=== PATIENT | female | born 1965 | race Caucasian/White ===

== ENCOUNTER 2020-07-11 07:59 | Outpatient (REF) | payer OTHER, SELFPAY ==
--- NOTE | 2020-07-11 08:04 | MM_ITS ---
EXAMINATION: MM SCREENING DIGITAL BREAST TOMOSYNTHESIS, BILATERAL CLINICAL INFORMATION: Screening. Asymptomatic. The lifetime risk of breast cancer based on the Tyrer-Cuzick Model is 9%. COMPARISON: Mammography: 11/20/2018, 09/26/2017, 09/20/2016, 05/05/2015 TECHNIQUE: Digital breast tomosynthesis is performed in both the craniocaudal and mediolateral oblique views along with computer-aided detection (CAD). Synthesized 2D images are generated from the tomosynthesis. FINDINGS: There are scattered areas of fibroglandular density (ACR BI-RADS breast composition Category b). There is a smooth 5 mm nodule left 12:30 o'clock position 3 cm from nipple more conspicuous on current study, possibly a cyst. The remainder of the bilateral breasts show no significant changes. There is no architectural abnormality or abnormal calcifications. The axilla and skin contours are unremarkable. MM/MM tomosynthesis screening BI IMPRESSION: 1. Left: Circumscribed 5 mm nodule 12:30 o'clock position more conspicuous, possibly a cyst. 2. Right: No mammographic evidence of malignancy. ASSESSMENT: BI-RADS 0: Incomplete - Need Additional Imaging Evaluation RECOMMENDATION: 1. Targeted ultrasound left breast. 2. Radiology department staff will contact the patient for additional imaging. This patient's information was entered into a reminder system with a target due date for their next mammogram.
== END 2020-07-11 08:00 | disposition home or self-care (01) ==
LOC: HO.MAMMO 07:59
PROVIDERS: Visit Provider Internal Medicine Medical Oncology
DX: Z12.31 Encounter for screening mammogram for malignant neoplasm of breast (principal)
CPT/HCPCS: 77063; 77067

== ENCOUNTER 2020-07-16 13:57 | Outpatient (REF) | payer OTHER, SELFPAY ==
--- NOTE | 2020-07-16 14:02 | US_ITS ---
EXAMINATION: US DIAGNOSTIC ULTRASOUND BREAST, LEFT CLINICAL INFORMATION: Recall from screening for 5 mm circumscribed nodule 12:30 o'clock anterior left breast. COMPARISON: Mammography 07/11/2020, 11/20/2018. TECHNIQUE: Ultrasound left breast is targeted to the anterior upper breast. Grayscale imaging and color Doppler are performed without and with harmonics. FINDINGS: There is a benign-appearing circumscribed anechoic nodule 12:00 position 2 cm from nipple measuring 4 x 5 mm. There is no increased or decreased through transmission of sound. There are low level internal echoes on CT sonography which clear with harmonics. There is no associated color flow. There is no suspicious finding. No solid mass or architectural abnormality. Results are discussed with the patient at time of visit. Finding is benign-appearing and likely a cyst. As there is no increased through-transmission of sound, follow-up ultrasound in 6 months will be requested. US/US breast LT limited IMPRESSION: Circumscribed 5 mm nodule anterior 12:00 left breast, likely small complicated cyst. ASSESSMENT: BI-RADS 3: Probably Benign RECOMMENDATION: Targeted ultrasound left breast in 6 months. This patient's information was entered into a reminder system with a target due date for their next mammogram.
== END 2020-07-16 13:58 | disposition home or self-care (01) ==
LOC: HO.MAMMO 13:57
PROVIDERS: Visit Provider Internal Medicine Medical Oncology
DX: N63.20 Unspecified lump in the left breast, unspecified quadrant (principal)
CPT/HCPCS: 76642

== ENCOUNTER 2020-12-15 10:32 | Outpatient (REF) | payer OTHER, SELFPAY ==
--- NOTE | ~2020-12-15 | XR_ITS ---
EXAMINATION: XR CERVICAL SPINE CLINICAL INFORMATION: Osteoarthritis. COMPARISON: None TECHNIQUE: 4 views of the cervical spine were obtained. FINDINGS: Slightly prominent lordotic curvature of the cervical spine. Posterior alignment is maintained without significant subluxation. No prevertebral soft tissue swelling. No evidence of acute fracture. Moderate C5-C6 disc degeneration. Facet degeneration at C5-C6, C6-C7. No prevertebral soft tissue swelling. Lung apices are clear. XR/XR cervical spine 3V IMPRESSION: Cervical spondylosis. Moderate C5-C6 disc degeneration. No evidence of acute osseous abnormality.
== END 2020-12-15 10:33 | disposition home or self-care (01) ==
LOC: HO.US 10:32
PROVIDERS: Visit Provider Internal Medicine Medical Oncology
DX: M19.90 Unspecified osteoarthritis, unspecified site (principal)
CPT/HCPCS: 72040

== ENCOUNTER 2021-01-14 10:56 | Outpatient (REF) | payer OTHER, SELFPAY ==
--- NOTE | ~2021-01-14 | US_ITS ---
EXAMINATION: US DIAGNOSTIC ULTRASOUND BREAST, LEFT CLINICAL INFORMATION: Left breast solid lesion. COMPARISON: Mammography of 07/11/2020 and ultrasound of 07/16/2020. TECHNIQUE: Ultrasound of the breast was performed with real-time fabian scale imaging and color Doppler. FINDINGS: There is again noted to be a well-circumscribed, hypoechoic lesion with increased through sound transmission and no internal vascularity at the 12-o'clock position, 2 cm from the nipple, measuring 6 x 5 x 4 mm in size. No new more suspicious features are identified. Recommend 6-month follow up ultrasound at the time of yearly mammography. Results are discussed with the patient at time of visit. US/US breast LT limited IMPRESSION: Stable appearance of left breast density, likely representing a small fibroadenoma. ASSESSMENT: BI-RADS 3: Probably Benign. RECOMMENDATION: Diagnostic mammography in 6 months. This patient's information was entered into a reminder system with a target due date for their next mammogram.
== END 2021-01-14 10:57 | disposition home or self-care (01) ==
LOC: HO.MAMMO 10:56
PROVIDERS: Visit Provider Internal Medicine Medical Oncology
DX: R92.2 Inconclusive mammogram (principal)
CPT/HCPCS: 76642

== ENCOUNTER 2021-01-23 16:53 | Outpatient (REF) | payer OTHER, SELFPAY ==
--- NOTE | ~2021-01-23 | XR_ITS ---
EXAMINATION: XR PELVIS CLINICAL INFORMATION: Left pubic ramus pain. Osteoarthritis. COMPARISON: None TECHNIQUE: AP view of the pelvis. FINDINGS: No acute fracture or dislocation. No significant joint space narrowing. Prominent bilateral acetabular marginal osteophytes, left greater than right. No lytic or blastic osseous lesion. No abnormal soft tissue calcification. XR/XR pelvis 1-2V IMPRESSION: Mild bilateral hip osteoarthritis, left greater than right.
== END 2021-01-23 16:54 | disposition home or self-care (01) ==
LOC: HO.XRAY 16:53
PROVIDERS: PCP Internal Medicine Medical Oncology; Visit Provider Internal Medicine Medical Oncology
DX: R10.2 Pelvic and perineal pain (principal); M19.90 Unspecified osteoarthritis, unspecified site
CPT/HCPCS: 72170

== ENCOUNTER 2021-07-25 07:28 | Outpatient (REF) | payer OTHER, SELFPAY | END 2021-07-25 07:29 | disposition home or self-care (01) | LOC: HO.MAMMO 07:28 | PROVIDERS: PCP Internal Medicine Medical Oncology; Visit Provider Internal Medicine Medical Oncology | DX: Z13.89 Encounter for screening for other disorder (principal) ==

== ENCOUNTER 2021-08-15 13:55 | Outpatient (REF) | payer OTHER, SELFPAY ==
--- NOTE | ~2021-08-15 | MM_ITS ---
EXAMINATION: MM DIAGNOSTIC DIGITAL MAMMOGRAPHY, BILATERAL US BREAST TARGETED, LEFT CLINICAL INFORMATION: Left breast density with 6-month followup. Yearly right breast study. The lifetime risk of breast cancer based on the Tyrer-Cuzick Model is 9.7%. COMPARISON: Mammography: 07/11/2020 and studies dating back to 05/05/2015 TECHNIQUE: Digital mammography is performed in craniocaudal and mediolateral oblique views along with computer-aided detection (CAD). FINDINGS: There are scattered areas of fibroglandular density (ACR BI-RADS breast composition Category b). There is a stable parenchymal pattern of the right breast with no new abnormal dominant mass or suspicious grouping of microcalcifications. Left breast study performed. The density about the mid lateral aspect is less evident than on prior studies. No new abnormal dominant mass or suspicious grouping of microcalcifications appreciated. Targeted left breast ultrasound study demonstrates the hypoechoic lesion to be smaller than prior studies measuring 3 x 3 x 4 mm in size compared to 5 x 4 x 6 mm in size on previous study of 01/14/2021. There is again no significant distal sound shadowing or enhancement, and this has the appearance of a possible solid lesion versus a complex cyst. No internal vascularity is present. Would still recommend 6-month followup diagnostic targeted left breast ultrasound. Results are discussed with the patient at time of visit. MM/MM diagnostic mammo BI IMPRESSION: There are no significant changes from prior study. ASSESSMENT: BI-RADS 3: Probably Benign. RECOMMENDATION: Six-month followup left breast ultrasound. This patient's information was entered into a reminder system with a target due date for their next mammogram.
--- NOTE | ~2021-08-15 | US_ITS ---
EXAMINATION: US DIAGNOSTIC ULTRASOUND BREAST, LEFT CLINICAL INFORMATION: Left breast density. COMPARISON: January 14, 2021 and studies dating back to May 05, 2015. TECHNIQUE: Ultrasound of the breast is performed with real-time fabian scale imaging and color Doppler. FINDINGS: Targeted left breast ultrasound study demonstrates the hypoechoic lesion to be smaller than prior studies measuring 3 x 3 x 4 mm in size compared to 5 x 4 x 6 mm in size on previous study of January 14, 2021. There is again no significant distal sound shadowing or enhancement and this has the appearance of a possible solid lesion versus a complex cyst. No internal vascularity is present. Would still recommend 6 month follow-up diagnostic targeted left breast ultrasound. Results are discussed with the patient at time of visit. US/US breast LT limited IMPRESSION: There are no significant changes from prior study. ASSESSMENT: BI-RADS 3: Probably Benign RECOMMENDATION: Six-month follow-up left breast ultrasound.
== END 2021-08-15 13:56 | disposition home or self-care (01) ==
LOC: HO.MAMMO 13:55
PROVIDERS: Visit Provider Internal Medicine Medical Oncology
DX: R92.2 Inconclusive mammogram (principal)
CPT/HCPCS: 76642; 77066

== ENCOUNTER 2022-01-25 07:57 | Outpatient (REF) | payer OTHER, SELFPAY ==
[2022-01-25 08:17] LABS: MANUAL DIFF FLAG NO
[2022-01-25 08:26] LABS: Basophils Absolute Auto 0.1 X10*3/uL (0.0-0.2); Basophils Percent Auto 1.2 % (0-2); Eosinophils Absolute Auto 0.2 X10*3/uL (0.0-0.4); Eosinophils Percent Auto 3.6 % (0-4); Hematocrit 43.9 % (37.0-47.0); Hemoglobin 14.5 g/dl (12.0-16.0); Imm Gran Abs Auto 0.01 X10*3/uL (0.00-0.03); Imm Gran Pct Auto 0.2 % (0.0-0.4); Lymphocytes Absolute Auto 1.5 X10*3/uL (1.2-4.9); Lymphocytes Percent Auto 25.5 % (20-40); Mean Corpuscular Hemoglobin 31.1 pg (27.0-33.0); Mean Corpuscular Volume 94.2 fL (80.0-98.0); Mean Platelet Volume 9.7 fL (9.4-12.3); Monocytes Absolute Auto 0.5 X10*3/uL (0.1-1.2); Neutrophils Absolute Auto 3.6 x10*3/uL (2.0-8.3); Neutrophils Percent Auto 61.5 % (45-73); Platelet Count 252 X10*3/uL (160-400); Red Blood Count 4.66 X10*6/uL (4.20-5.50); Red Cell Distribution Width 11.9 % (11.0-16.0); White Blood Count 5.8 X10*3/uL (4.8-10.8)
[2022-01-25 08:53] LABS: Alanine Aminotransferase 23 U/L (0-31); Albumin Level 4.1 g/dL (3.5-5.0); Alkaline Phosphatase 100 U/L (39-117); Anion Gap 10 (12-20); Aspartate Amino Transferase 27 U/L (5-31); Bilirubin Total 0.8 mg/dL (0.0-1.0); Blood Urea Nitrogen 18 mg/dL (9-16); Calcium 9.7 mg/dL (8.4-10.2); Carbon Dioxide 28 mmol/L (22-29); Chloride 107 mmol/L (96-108); Cholesterol 193 mg/dL; Estimated Glomerular Filt Rate 49; Glucose Fasting 93 mg/dL (60-99); HDL Cholesterol 62 mg/dL; LDL Cholesterol Calculated 123 mg/dl; Potassium 4.5 mmol/L (3.3-5.1); Sodium 140 mmol/L (135-145); Total Protein 6.6 g/dL (6.5-8.0); Triglycerides 44 mg/dL
[2022-01-25 09:14] LABS: Erythrocyte Sedimentation Rate 6 MM/HR (0-20)
== END 2022-01-25 07:58 | disposition home or self-care (01) ==
LOC: HO.LAB 07:57
PROVIDERS: PCP Internal Medicine Medical Oncology; Visit Provider Internal Medicine Medical Oncology
DX: Z00.00 Encounter for general adult medical examination without abnormal findings (principal); E66.3 Overweight
CPT/HCPCS: 36415; 80053; 80061; 85025; 85652

== ENCOUNTER 2022-07-01 17:08 | Outpatient (REF) | payer OTHER, SELFPAY ==
--- NOTE | ~2022-07-01 | XR_ITS ---
EXAMINATION: XR ANKLE, RIGHT CLINICAL INFORMATION: Acute right ankle pain. COMPARISON: None TECHNIQUE: AP, lateral, and mortise views of the right ankle. FINDINGS: The ankle joint and mortise are intact but there is no acute fracture or dislocation. The joint spaces are unremarkable. Very small plantar and moderate retrocalcaneal spur. The soft tissues are unremarkable. XR/XR ankle RT min 3V IMPRESSION: Degenerative calcaneal spurs as detailed above without acute abnormality.
== END 2022-07-01 17:09 | disposition home or self-care (01) ==
LOC: HO.XRAY 17:08
PROVIDERS: PCP Internal Medicine Medical Oncology; Visit Provider Internal Medicine Medical Oncology
DX: M25.571 Pain in right ankle and joints of right foot (principal)
CPT/HCPCS: 73610

== ENCOUNTER 2022-08-19 12:54 | Outpatient (REF) | payer OTHER, SELFPAY ==
--- NOTE | ~2022-08-19 | MM_ITS ---
EXAMINATION: MM DIAGNOSTIC DIGITAL BREAST TOMOSYNTHESIS, BILATERAL US BREAST TARGETED, LEFT CLINICAL INFORMATION: Six-month follow-up left breast lesion which on ultrasound appears to represent either complex cyst or a solid structure. The lifetime risk of breast cancer based on the Tyrer-Cuzick Model is 9.9%. COMPARISON: Mammography: 08/15/2021 and studies dating back to 05/05/2015. TECHNIQUE: Digital breast tomosynthesis is performed in both the craniocaudal and mediolateral oblique views along with computer-aided detection (CAD). Synthesized 2D images are generated from the tomosynthesis. FINDINGS: The breasts are heterogeneously dense, which may obscure small masses (ACR BI-RADS breast composition Category c). There are no new significant masses, abnormal calcifications, or other abnormalities. The previously noted left breast circumscribed density is not definitely identified on today's study. Targeted left breast ultrasound demonstrates a stable appearance of the two hypoechoic well-circumscribed hypoechoic lesions 12 o'clock position 2 cm from nipple one of which measures 2 mm in diameter and the other 4 x 3 x 3 mm in size. Results are discussed with the patient at time of visit. MM/MM tomosynthesis diagnostic BI IMPRESSION: Stability of left breast lesion 12 o'clock position 2 cm from nipple out to 2 years. Return to yearly screening mammogram schedule. ASSESSMENT: BI-RADS 2: Benign. RECOMMENDATION: Routine annual mammography screening. This patient's information was entered into a reminder system with a target due date for their next mammogram.
== END 2022-08-19 12:55 | disposition home or self-care (01) ==
LOC: HO.MAMMO 12:54
PROVIDERS: Absent Provider Obstetrics & Gynecology; Visit Provider Internal Medicine Medical Oncology
DX: N63.25 Unspecified lump in the left breast, overlapping quadrants (principal)
CPT/HCPCS: 76642; 77062; 77066

== ENCOUNTER 2023-01-16 20:59 | Emergency (ER) | payer OTHER, SELFPAY ==
--- NOTE | ~2023-01-16 | XR_ITS ---
EXAMINATION: XR WRIST, RIGHT CLINICAL INFORMATION: Right wrist injury COMPARISON: Right hand 06/28/2008 TECHNIQUE: PA, lateral, oblique, and scaphoid views of the right wrist. FINDINGS: The bones and soft tissues are unremarkable. No fracture is seen. Alignment is anatomic with normal joint spaces. No erosions or abnormal soft tissue calcifications. XR/XR wrist RT min 3V IMPRESSION: Normal right wrist.
[2023-01-16 21:07] VITALS: BP 121/73; PULSE 76; RESP 18; TEMP 36.6; O2SAT 96; BMI 27.1
[2023-01-17 01:39] VITALS: BP 134/87; PULSE 58; RESP 18; TEMP 36.6; O2SAT 98
--- NOTE | 2023-01-17 02:24 | ED_ITS ---
HPI - Extremity Problem General Chief complaint: Extremity Injury, Upper Stated complaint: R wrist inj Time Seen by Provider: 01/17/23 01:02 Source: patient Mode of arrival: ambulatory History of Present Illness HPI Narrative: 57-year-old female fell and believes that she struck her right hand on the edge of a cement wall but otherwise has no acute complaints. She denies head strike or loss of conscious. Related Data Home Medications Medication Instructions Recorded Confirmed albuterol sulfate 90 mcg/actuation 2 inh inhalation Q4-6H PRN 07/08/22 07/08/22 breath activated powder inhaler,sensor (Proair Digihaler) docosahexaenoic acid (dha)-epa 120 1 cap PO DAILY 07/08/22 07/08/22 mg-180 mg capsule (Fish Oil) estradiol 10 mg implant pellet mg subcut 07/08/22 07/08/22 ibuprofen 200 mg tablet (Advil) 200 mg PO Q6H PRN 07/08/22 07/08/22 multivitamin 1 tab PO DAILY 07/08/22 07/08/22 Previous Rx's Medication Instructions Recorded bisacodyl 5 mg tablet,delayed 10 mg PO ONCE colonoscopy prep 1 07/08/22 release (Dulcolax (bisacodyl)) day #2 tabs bisacodyl 5 mg tablet,delayed 10 mg PO ONCE colonoscopy prep 1 07/08/22 release (Dulcolax (bisacodyl)) day #2 tabs polyethylene glycol 3350 17 238 g PO ONCE 1 day #238 grams 07/08/22 gram/dose oral powder (Miralax) polyethylene glycol 3350 17 238 g PO ONCE 1 day #238 grams 07/08/22 gram/dose oral powder (Miralax) Allergies Allergy/AdvReac Type Severity Reaction Status Date / Time citalopram [CITALOPRAM] Allergy Severe SUICIDAL Verified 01/16/23 21:07 trazodone [TRAZODONE] Allergy Severe SUICIDAL Verified 01/16/23 21:07 zolpidem [From Ambien] Allergy Severe Confusion Verified 01/16/23 21:07 erythromycin base Allergy Intermediate CONFUSION Verified 01/16/23 21:07 [Erythromycin Base] latex [LATEX] Allergy Intermediate RASH Verified 01/16/23 21:07 Sulfa (Sulfonamide Allergy Intermediate ? RASH Verified 01/16/23 21:07 Antibiotics) LIVID Allergy Unknown SUICIDAL Verified 01/16/23 21:07 sulfur Allergy Unknown Unknown Verified 01/16/23 21:07 duloxetine [From Cymbalta] AdvReac Unknown Suicidal Verified 01/16/23 21:07 fluoxetine [From Prozac] AdvReac Unknown Suicidal Verified 01/16/23 21:07 paroxetine [From Paxil] AdvReac Unknown Suicidal Verified 01/16/23 21:07 venlafaxine [From Effexor] AdvReac Unknown Suicidal Verified 01/16/23 21:07 COLOPHON Allergy Unknown SUICIDAL Uncoded 01/16/23 21:07 Review of Systems Review of Systems: Pertinent positives and negatives as stated in HPI [facility] Past Medical History Source: nursing notes reviewed Family History Family History Father Skin cancer Stroke Diabetes Hyperlipemia Mother Stroke Rheumatic arteritis Dementia Mouth cancer HTN (hypertension) Brother Hyperlipemia Brother HTN (hypertension) Social History Social History Household Members: Family Alcohol intake: never Patient Tobacco Use Status: Never used Tobacco Smoked in Last 30 Days: No Use of substances other than those prescribed or required for medical reasons: No Advance Directives: No Advance Directives Information Provided: Yes Patient : No Current occupational status: employed Current occupation: [employer]- Physical Exam Vital Signs: Vital Signs: Last Vital Signs Temp 98 F 01/17/23 01:39 Pulse 58 01/17/23 01:39 Resp 18 01/17/23 01:39 BP 134/87 01/17/23 01:39 Pulse Ox 98 01/17/23 01:39 O2 Del Method Room Air 01/17/23 01:39 BMI result Body Mass Index 27.1 VITAL SIGNS: Reviewed. GENERAL: Well developed, well nourished, in no acute distress. HEAD: Normocephalic/atraumatic EYES: PERRLA, EOMI EARS: Ext canals without abnormality NOSE: Nares patent bilateral OROPHARYNX: no oral lesions noted, posterior pharynx clear NECK: Supple, no adenopathy LUNGS: Normal breath sounds. No adventitious sounds or accessory muscle use. SpO2<98> CARDIOVASCULAR: Regular rate and rhythm without noted murmurs ABDOMEN: Soft, non-tender, non-distended with bowel sounds. MUSCULOSKELETAL: No tenderness, deformities, or effusions noted on gross inspection. EXTREMITIES: No cyanosis, clubbing or edema; RIGHT UPPER EXTREMITY: There is no gross deformity, palpation along both the radius and ulna do not elicit any pain, patient has full range of motion at the wrist to include supination/pronation, capillary refill less than 3 seconds an pulses are palpable. SKIN: Inspection of the skin reveals no rashes NEUROLOGIC: Alert and oriented x 4. Strength and sensation to light touch were grossly intact x 4. Medical Decision Making Medical Decision Making MDM Narrative: 57-year-old female who fell and has some right 5th metatarsal pain, x-rays are negative for acute fracture or dislocation, nothing noted on clinical exam. Patient given combination analgesics and discharged home in stable condition with instructions to follow-up with her primary care provider should the pain persist. Differential Diagnosis Please see the discussion above Radiology Impression Radiologist Impression: My interpretation is in agreement with radiology's impression Discharge Plan Discharge Clinical Impression: Pain in right wrist Patient Disposition: Home, Self-Care Instructions: Wrist Injury (ED) Additional Instructions: 1. Resume all home medications. 2. Recommend [id number] Tylenol/ibuprofen as needed for pain control. 3. Follow-up with primary care provider on Thursday. Return to the ER for any worsening symptoms. Prescriptions: No Action estradiol 10 mg pellet subcut ibuprofen [Advil] 200 mg tablet 200 mg PO Q6H PRN Proair Digihaler 90 mcg/actuation aero powdr breath act w/sensor 2 inh inhalation Q4-6H PRN Fish Oil 120-180 mg capsule 1 cap PO DAILY multivitamin Tablet 1 tab PO DAILY bisacodyl [Dulcolax (bisacodyl)] 5 mg tablet,delayed release (DR/EC) 10 mg PO ONCE 1 Days Qty: 2 0RF Rx Instructions: Take 2 tablets by mouth at 12:00pm the day before your procedure. polyethylene glycol 3350 [Miralax] 17 gram/dose powder 238 g PO ONCE 1 Days Qty: 238 0RF Rx Instructions: Take as directed by mouth the day before your procedure. polyethylene glycol 3350 [Miralax] 17 gram/dose powder 238 g PO ONCE 1 Days Qty: 238 0RF Rx Instructions: Take as directed by mouth the day before your procedure. bisacodyl [Dulcolax (bisacodyl)] 5 mg tablet,delayed release (DR/EC) 10 mg PO ONCE 1 Days Qty: 2 0RF Rx Instructions: Take 2 tablets by mouth at 12:00pm the day before your procedure. Referrals: Vamshi Subramanian MD [Primary Care Provider] -
[2023-01-17] MEDS: Ibuprofen 400 MG TABLET PO (02:46)
[2023-01-17] MEDS: Acetaminophen 325 MG TABLET 975 MG PO (02:46)
== END 2023-01-17 02:50 | disposition home or self-care (01) ==
PROVIDERS: Emergency Provider Student in an Organized Health Care Education/Training Program; PCP Internal Medicine Medical Oncology
DX: M25.531 Pain in right wrist (principal)
CPT/HCPCS: 73110; 99283; 99284

== ENCOUNTER 2023-02-13 10:20 | Outpatient (REF) | payer OTHER, SELFPAY ==
[2023-02-13 10:39] LABS: MANUAL DIFF FLAG NO
[2023-02-13 11:18] LABS: Basophils Absolute Auto 0.1 X10*3/uL (0.0-0.2); Eosinophils Absolute Auto 0.2 X10*3/uL (0.0-0.4); Eosinophils Percent Auto 2.4 % (0-4); Hematocrit 43.9 % (37.0-47.0); Hemoglobin 14.8 g/dl (12.0-16.0); Imm Gran Abs Auto 0.02 X10*3/uL (0.00-0.03); Imm Gran Pct Auto 0.3 % (0.0-0.4); Lymphocytes Percent Auto 15.9 % (20-40); Mean Corpuscular HGB Conc 33.7 g/dl (31.0-35.0); Mean Corpuscular Volume 91.8 fL (80.0-98.0); Mean Platelet Volume 10.1 fL (9.4-12.3); Monocytes Absolute Auto 0.3 X10*3/uL (0.1-1.2); Monocytes Percent Auto 5.2 % (2-11); Neutrophils Absolute Auto 4.7 x10*3/uL (2.0-8.3); Neutrophils Percent Auto 75.2 % (45-73); Platelet Count 262 X10*3/uL (160-400); Red Blood Count 4.78 X10*6/uL (4.20-5.50); Red Cell Distribution Width 11.5 % (11.0-16.0); White Blood Count 6.3 X10*3/uL (4.8-10.8)
[2023-02-13 12:42] LABS: Alanine Aminotransferase 24 U/L (0-31); Albumin Level 4.1 g/dL (3.5-5.0); Alkaline Phosphatase 82 U/L (39-117); Anion Gap 10 (12-20); Aspartate Amino Transferase 26 U/L (5-31); Bilirubin Total 1.1 mg/dL (0.0-1.0); Blood Urea Nitrogen 16 mg/dL (9-16); Calcium 10.1 mg/dL (8.4-10.2); Carbon Dioxide 28 mmol/L (22-29); Chloride 106 mmol/L (96-108); Cholesterol 199 mg/dL; Estimated Glomerular Filt Rate > 60; Glucose Fasting 91 mg/dL (60-99); HDL Cholesterol 69 mg/dL; LDL Cholesterol Calculated 118 mg/dl; Sodium 140 mmol/L (135-145); Triglycerides 60 mg/dL
== END 2023-02-13 10:21 | disposition home or self-care (01) ==
LOC: HO.LAB 10:20
PROVIDERS: PCP Internal Medicine Medical Oncology; Visit Provider Internal Medicine Medical Oncology
DX: Z00.00 Encounter for general adult medical examination without abnormal findings (principal); E66.3 Overweight
CPT/HCPCS: 36415; 80053; 80061; 85025

== ENCOUNTER 2023-06-18 07:53 | Day surgery (SDC) | payer OTHER, SELFPAY ==
[2023-06-15 16:46] VITALS: BMI 27.5
--- NOTE | 2023-06-17 10:23 | HO.ANESPROP2 ---
HPI - Anesthesia Eval Consult details Narrative: 58yo F for Colonoscopy *Multiple med allergies* PMFSH Active Problems Active Problems: All Active Problems (Updated 01/18/23 @ 00:00 by Background Arya) Family history of colonic polyps (Acute) Encounter for screening colonoscopy (Acute) Family History Family History Father Skin cancer Stroke Diabetes Hyperlipemia Mother Stroke Rheumatic arteritis Dementia Mouth cancer HTN (hypertension) Brother Hyperlipemia Brother HTN (hypertension) Social History Social History Household Members: Family Alcohol intake: never Patient Tobacco Use Status: Never used Tobacco Current occupational status: employed Current occupation: [employer] Allergies Allergy/AdvReac Type Severity Reaction Status Date / Time citalopram [CITALOPRAM] Allergy Severe SUICIDAL Verified 01/16/23 21:07 trazodone [TRAZODONE] Allergy Severe SUICIDAL Verified 01/16/23 21:07 zolpidem [From Ambien] Allergy Severe Confusion Verified 01/16/23 21:07 erythromycin base Allergy Intermediate CONFUSION Verified 01/16/23 21:07 [Erythromycin Base] latex [LATEX] Allergy Intermediate RASH Verified 01/16/23 21:07 Sulfa (Sulfonamide Allergy Intermediate ? RASH Verified 01/16/23 21:07 Antibiotics) LIVID Allergy Unknown SUICIDAL Verified 01/16/23 21:07 sulfur Allergy Unknown Unknown Verified 01/16/23 21:07 duloxetine [From Cymbalta] AdvReac Unknown Suicidal Verified 01/16/23 21:07 fluoxetine [From Prozac] AdvReac Unknown Suicidal Verified 01/16/23 21:07 paroxetine [From Paxil] AdvReac Unknown Suicidal Verified 01/16/23 21:07 venlafaxine [From Effexor] AdvReac Unknown Suicidal Verified 01/16/23 21:07 COLOPHON Allergy Unknown SUICIDAL Uncoded 01/16/23 21:07 Home Medications Medication Instructions Recorded Confirmed Last Taken Type albuterol sulfate 90 mcg/actuation 2 inh inhalation Q4-6H PRN 07/08/22 07/08/22 Unknown History breath activated powder inhaler,sensor (Proair Digihaler) docosahexaenoic acid (dha)-epa 120 1 cap PO DAILY 07/08/22 07/08/22 Unknown History mg-180 mg capsule (Fish Oil) estradiol 10 mg implant pellet mg subcut 07/08/22 07/08/22 Unknown History ibuprofen 200 mg tablet (Advil) 200 mg PO Q6H PRN 07/08/22 07/08/22 Unknown History multivitamin 1 tab PO DAILY 07/08/22 07/08/22 Unknown History Exam Exam Date and Time: June 17, 2023 1023 Height,Weight and Vital Signs: Height 5 ft 4 in Weight 72.575 kg Pertinent Lab Results Pertinent Lab Results: Laboratory Tests 02/13/23 10:38 WBC 6.3 Hgb 14.8 Hct 43.9 Plt Count 262 Sodium 140 Potassium 4.0 Chloride 106 Carbon Dioxide 28 BUN 16 Creatinine 0.85 Assessment and Plan Assessment Anesthesia Assessment: Chart Reviewed
--- NOTE | 2023-06-18 07:58 | MHC.SHP ---
Pre-Procedural Eval Section A Date of Service: 06/18/23 Section B Chief Complaint: Encounter for screening Relevant Social History: None Present Medications: see Short Stay Collaborative assessment Medical History: No relevant PMH History of Previous Operations: No relevant previous surgery Allergies: Allergies Allergy/AdvReac Type Severity Reaction Status Date / Time citalopram [CITALOPRAM] Allergy Severe SUICIDAL Verified 01/16/23 21:07 trazodone [TRAZODONE] Allergy Severe SUICIDAL Verified 01/16/23 21:07 zolpidem [From Ambien] Allergy Severe Confusion Verified 01/16/23 21:07 erythromycin base Allergy Intermediate CONFUSION Verified 01/16/23 21:07 [Erythromycin Base] latex [LATEX] Allergy Intermediate RASH Verified 01/16/23 21:07 Sulfa (Sulfonamide Allergy Intermediate ? RASH Verified 01/16/23 21:07 Antibiotics) LIVID Allergy Unknown SUICIDAL Verified 01/16/23 21:07 sulfur Allergy Unknown Unknown Verified 01/16/23 21:07 duloxetine [From Cymbalta] AdvReac Unknown Suicidal Verified 01/16/23 21:07 fluoxetine [From Prozac] AdvReac Unknown Suicidal Verified 01/16/23 21:07 paroxetine [From Paxil] AdvReac Unknown Suicidal Verified 01/16/23 21:07 venlafaxine [From Effexor] AdvReac Unknown Suicidal Verified 01/16/23 21:07 COLOPHON Allergy Unknown SUICIDAL Uncoded 01/16/23 21:07 Review of Systems Review of Systems Comment: 10 point ROS negative Exam Exam Comment: Gen appear: No acute distress HEENT: no icterus Chest: No overt resp distress Abd: soft, nontender, nondistended Psych: Stable affect, answering questions appropriately Neuro: A/Ox3 noted to move all extremities spontaneously Ext: no peripheral edema Plan Diagnosis/Plan: Unchanged I have reviewed the history and physical and performed a pertinent physical examination on my patient. No changes have occurred unless specified. Time Spent With Patient Time: Total time managing care of this patient today ____ minutes.
--- NOTE | 2023-06-18 08:22 | P.CONAN_ITS ---
[facility] Active Problems Active Problems: All Active Problems (Updated 01/18/23 @ 00:00 by Earle Koenig) Family history of colonic polyps (Acute) Encounter for screening colonoscopy (Acute) Past Medical History Medical History Arrhythmia Asthma Family History Family History Father Skin cancer Stroke Diabetes Hyperlipemia Mother Stroke Rheumatic arteritis Dementia Mouth cancer HTN (hypertension) Brother Hyperlipemia Brother HTN (hypertension) Family history of problems with anesthesia: No Surgical History Surgical History History of mandibular surgery History of toe surgery History of colonoscopy History of Problems with Anesthesia: No Social History Social History Household Members: Family Alcohol intake: never Patient Tobacco Use Status: Never used Tobacco Current occupational status: employed Current occupation: [employer] Allergies Allergy/AdvReac Type Severity Reaction Status Date / Time citalopram [CITALOPRAM] Allergy Severe SUICIDAL Verified 01/16/23 21:07 trazodone [TRAZODONE] Allergy Severe SUICIDAL Verified 01/16/23 21:07 zolpidem [From Ambien] Allergy Severe Confusion Verified 01/16/23 21:07 erythromycin base Allergy Intermediate CONFUSION Verified 01/16/23 21:07 [Erythromycin Base] latex [LATEX] Allergy Intermediate RASH Verified 01/16/23 21:07 Sulfa (Sulfonamide Allergy Intermediate ? RASH Verified 01/16/23 21:07 Antibiotics) sulfur Allergy Unknown Unknown Verified 01/16/23 21:07 duloxetine [From Cymbalta] AdvReac Unknown Suicidal Verified 01/16/23 21:07 fluoxetine [From Prozac] AdvReac Unknown Suicidal Verified 01/16/23 21:07 paroxetine [From Paxil] AdvReac Unknown Suicidal Verified 01/16/23 21:07 venlafaxine [From Effexor] AdvReac Unknown Suicidal Verified 01/16/23 21:07 COLOPHON Allergy Unknown SUICIDAL Uncoded 01/16/23 21:07 Active Medications: Current Medications Lactated Ringer's (Lr) 1,000 mls @ 100 mls/hr IVCONT .Q10H ABILIO Ondansetron HCl (Ondansetron Hcl 4 Mg/2 Ml Vial) 4 mg IVPUSH ONCE PRN PRN Reason: Nausea and Vomiting Home Medications Medication Instructions Recorded Confirmed Last Taken Type albuterol sulfate 90 mcg/actuation 2 inh inhalation Q4-6H PRN 07/08/22 07/08/22 Unknown History breath activated powder inhaler,sensor (Proair Digihaler) docosahexaenoic acid (dha)-epa 120 1 cap PO DAILY 07/08/22 07/08/22 Unknown History mg-180 mg capsule (Fish Oil) estradiol 10 mg implant pellet mg subcut 07/08/22 07/08/22 Unknown History ibuprofen 200 mg tablet (Advil) 200 mg PO Q6H PRN 07/08/22 07/08/22 Unknown History multivitamin 1 tab PO DAILY 07/08/22 07/08/22 Unknown History Exam Exam Date and Time: June 18, 2023 0822 Height,Weight and Vital Signs: Height 5 ft 4 in Weight 72.575 kg Airway Mallampati Class: I TM Dist: >3cm Neck ROM: Full Loose/Missing/Broken Teeth: No Heart: rrr Lungs: clear Assessment and Plan Final Anesthetic Review Family History of Problems with Anesthesia: No History of Problems with Anesthesia: No NPO: Yes ASA Class: II Final Preanesthetic Review: No Changes in Pt Med Stat, Meds/Allgs Chart Reviewed, Consent Obtained/Reviewed and Anes Risks/Benef Reviewed Patient Risk: Intermediate Procedure Risk: Low Anesthetic Plan Anesthetic Plan: MAC: Disposition: Standard PACU
[2023-06-18 08:29] VITALS: BP 131/67; PULSE 67; RESP 16; TEMP 36.7; O2SAT 100
[2023-06-18] MEDS: Lactated Ringers 1,000 ML 100 ML IVCONT (08:42)
[2023-06-18 09:15] VITALS: BP 103/56; PULSE 83; RESP 16; TEMP 36.3; O2SAT 98
--- NOTE | 2023-06-18 09:21 | P.OP_ITS ---
Operative Note Operative Note Date of Service: 06/18/23 Narrative: Procedure: Colonoscopy Indication: Screening Endoscopist: Nelsy Bro MD Anesthesia Provider: Dr Chilo Mccann Anesthesia type: MAC Instrument: Olympus [id number]-H190L Consent: Indication, risks vs benefits, and alternatives were discussed with the patient who gave written informed consent to proceed. EKG, pulse, pulse oximetry and blood pressure were monitored throughout the procedure. Please see anesthesia flowsheet. Procedure: The patient was brought to the procedure room and placed in the left lateral decubitus position. IV medications were administered by the anesthesia provider in attendance. A digital rectal exam was performed which was abnormal due to finding of hemorrhoids. A distal attachment cap was affixed to the tip of the colonoscope was then inserted through the anus and advanced through the colon to the cecum at 75 cm,and terminal ileum. Mucosa was carefully examined under high definition white light as the instrument was slowly withdrawn in a retrograde panoramic fashion. Retroflexion was performed in rectum. The procedure was not difficult. There were no immediate obvious complications. The quality of the prep was BBPS: 2+2+3 = adequate Withdrawal time 10 minutes. Limitations: No limitations. Findings: Mucosa: Normal to cecum and terminal ileum. Protruding lesions: * 1 sessile polyp of size 3 mm in ascending colon. Cold snare polypectomy was performed. The polyp was completely removed and retrieved. * Medium internal hemorrhoids without stigmata of recent bleeding. Excavated lesions: * Scattered diverticulosis of sigmoid colon and a few diverticuli visualised in ascending colon. Impression: 1. Normal colon and terminal ileum mucosa 2. Total of 1 polyp removed 3. External and internal hemorrhoids 4. Diverticulosis Recommendations: - Follow path results. - Repeat colonoscopy in 5 years if brother has hx of advanced adenoma otherwise 7-10 years.
[2023-06-18 09:30] VITALS: BP 115/80; PULSE 93; RESP 16; TEMP 36.3; O2SAT 100
== END 2023-06-18 10:29 | disposition home or self-care (01) ==
PROVIDERS: PCP Internal Medicine Medical Oncology; Visit Provider Internal Medicine
PROC: 0DJD8ZZ Inspection of Lower Intestinal Tract, Via Natural or Artificial Opening Endoscopic (ICD-10-PCS; CPT 45378; principal; 2023-06-18 09:30)
DX: Z12.11 Encounter for screening for malignant neoplasm of colon (principal); D12.2 Benign neoplasm of ascending colon; K57.30 Diverticulosis of large intestine without perforation or abscess without bleeding; K64.8 Other hemorrhoids; Z83.719 Family history of colon polyps, unspecified; J45.909 Unspecified asthma, uncomplicated; Z79.899 Other long term (current) drug therapy
CPT/HCPCS: 45385; 88305

== ENCOUNTER → 2023-06-18 07:53 | Outpatient (BNV) | payer OTHER, SELFPAY | PROVIDERS: PCP Internal Medicine Medical Oncology; Visit Provider Internal Medicine | DX: Z12.11 Encounter for screening for malignant neoplasm of colon (principal); D12.2 Benign neoplasm of ascending colon; K64.8 Other hemorrhoids; K57.30 Diverticulosis of large intestine without perforation or abscess without bleeding | CPT/HCPCS: 45385 ==

== ENCOUNTER 2023-07-02 07:15 | Outpatient (AMB) | payer OTHER, SELFPAY ==
--- NOTE | 2023-07-02 07:28 | MHC.OFFVIS ---
Intake Vital Signs 07/02/23 07:29 Height 5 ft 4 in Weight 162 lb 4 oz BMI 27.8 BP 111/65 Blood Pressure Location Lt brachial Position Sitting Pulse 67 Intake Visit Reasons: S/p colon Dieudonne Intake Note: Patient follow up for colonoscopy results Patient denies any GI issues. Outbound Sales Professional Required: Yes Accompanied by: Self / Same As Patient Allergies citalopram [CITALOPRAM] Allergy (Severe, Verified 07/02/23 07:25) SUICIDAL trazodone [TRAZODONE] Allergy (Severe, Verified 07/02/23 07:25) SUICIDAL zolpidem [From Ambien] Allergy (Severe, Verified 07/02/23 07:25) Confusion erythromycin base [Erythromycin Base] Allergy (Intermediate, Verified 07/02/23 07:25) CONFUSION latex [LATEX] Allergy (Intermediate, Verified 07/02/23 07:25) RASH Sulfa (Sulfonamide Antibiotics) Allergy (Intermediate, Verified 07/02/23 07:25) ? RASH sulfur Allergy (Unknown, Verified 07/02/23 07:25) Unknown duloxetine [From Cymbalta] Adverse Reaction (Unknown, Verified 07/02/23 07:25) Suicidal fluoxetine [From Prozac] Adverse Reaction (Unknown, Verified 07/02/23 07:25) Suicidal paroxetine [From Paxil] Adverse Reaction (Unknown, Verified 07/02/23 07:25) Suicidal venlafaxine [From Effexor] Adverse Reaction (Unknown, Verified 07/02/23 07:25) Suicidal COLOPHON Allergy (Unknown, Uncoded 01/16/23 21:07) SUICIDAL Medication List - Last Reconciled 07/02/23 by Valentine Garnica PA-C albuterol sulfate 90 mcg/actuation (Proair Digihaler) 2 inhalations inhalation Q4-6H PRN docosahexaenoic acid-epa 120-180 mg (Fish Oil) 1 cap PO DAILY estradiol mg subcut ibuprofen (Advil) 200 mg PO Q6H PRN multivitamin 1 tab PO DAILY HPI HPI Comments History of Present Illness Details A 58 y/o female family hx colon polyps= F/U after colonoscopy- Reviewed report, path and recommendations Reviewed fam hx- No GI or general complaints PFSH Medical History (Updated 07/02/23 @ 08:16 by Valentine Garnica PA-C) Arrhythmia Asthma Surgical History History of mandibular surgery History of toe surgery History of colonoscopy Family History Father Skin cancer Stroke Diabetes Hyperlipemia Mother Stroke Rheumatic arteritis Dementia Mouth cancer HTN (hypertension) Brother Hyperlipemia Brother HTN (hypertension) Social History Household Members: Family Alcohol intake: never Patient Tobacco Use Status: Never used Tobacco Current occupational status: employed Current occupation: [employer]- Review of Systems Const All systems reviewed & are unremarkable except as noted in HPI and below Card Denies chest pain and Denies dyspnea Resp Denies dyspnea Physical Exam Vital Signs: Last Vital Signs Pulse 67 07/02/23 07:29 BP 111/65 07/02/23 07:29 BMI result Body Mass Index 27.8 Const General: cooperative, healthy appearing, comfortable and no acute distress Orientation/consciousness: patient oriented x3 Limitations: no limitations Resp Effort & Inspection: normal respiratory effort and able to speak in complete sentences GI Palpation (GI): Soft to palpation and nontender Auscultation: normal bowel sounds Neuro General: patient oriented x3 Extrem General: Yes full ROM Psych Appearance: grossly normal and well kempt Mental Status: mental status grossly normal Speech and movement: Normal speech and movement present and Clear speech present Affect: normal affect Attitude: cooperative Thought process: Normal thought process present Thought content: Normal thought content present Insight: Good insight present (Psych) Judgement: Good judgement present (Psych) Results Reviewed Results Reviewed: Findings: Mucosa: Normal to cecum and terminal ileum. Protruding lesions: 1 sessile polyp of size 3 mm in ascending colon. Cold snare polypectomy was performed. The polyp was completely removed and retrieved. Medium internal hemorrhoids without stigmata of recent bleeding. Excavated lesions: Scattered diverticulosis of sigmoid colon and a few diverticuli visualised in ascending colon. Impression: 1. Normal colon and terminal ileum mucosa 2. Total of 1 polyp removed 3. External and internal hemorrhoids 4. Diverticulosis Recommendations: - Follow path results. - Repeat colonoscopy in 5 years if brother has hx of advanced adenoma otherwise 7-10 years. Name: Chela Puri Age/Sex: 58/F Attending: Nelsy Bro MD : 1965 Submitted by: Nelsy Bro MD Copies to: Vamshi Subramanian MD MR #: [id number] Status: [facility] Collected: 06/18/23 Location: [facility] Received: 06/18/23 Diagnosis Colon, ascending, polyp: Tubular adenoma, likely excised; negative for high-grade dysplasia and carcinoma. Clinical History Pre-Op Dx: Colon cancer screening Post-Op Dx: External hemorrhoids, diverticulosis, colon polyp Microscopic Description Microscopic sections reviewed. Material Received Ascending colon polyp Gross Description Received in formalin labeled ?ascending colon polyp? is a 0.35 cm in greatest dimension hyperemic and congested, pink-red papular tissue fragment which is submitted in toto in a single cassette labeled A. CEDS Copies To Vamshi Subramanian MD [address], [address] [place] [address] Nelsy Bro MD [address] [place] [address] [email or web address] NOTE: Unless otherwise stated, all tissue is formalin-fixed and paraffin-embedded. Some or all of the immunohistochemical tests reported herein may have been developed and their performance characteristics determined by [facility]. They have not been cleared or approved by the U.S. Food and Drug Administration (FDA). However, the FDA has determined that such clearance or approval is not necessary. This laboratory is certified under the Clinical Laboratory Improvement Amendments of 1988 (CLIA) as qualified to perform high complexity clinical laboratory testing. Patient: Chela Puri Age/Sex: 58/F MR#: [id number] Page 1 of 2 Assessment & Plan Assessment & Plan (1) Family history of colonic polyps: Comment: brother - 1 yr older Code(s): Z83.71 - Family history of colonic polyps (2) Tubular adenoma: Comment: adenoma- 2022 Code(s): D36.9 - Benign neoplasm, unspecified site Plan: 5 -7 years (3) Diverticulosis of colon: Comment: Very pleasant Code(s): K57.30 - Diverticulosis of large intestine without perforation or abscess without bleeding Plan: HFD ER protocol (4) Hemorrhoids: Code(s): K64.9 - Unspecified hemorrhoids Plan: HFD Plan 5 -7 years HFD ER protocol Patient Instructions: HFD ER protocol Coding Level of Care Code Est Pt Level 3 (78352) Diagnoses Family history of colonic polyps Z83.71 Tubular adenoma D36.9 Diverticulosis of colon K57.30 Hemorrhoids K64.9 Time Spent (min) 35
[2023-07-02 07:29] VITALS: BP 111/65; PULSE 67; BMI 27.8
== END 2023-07-02 08:38 | disposition home or self-care (01) ==
PROVIDERS: PCP Internal Medicine Medical Oncology; Visit Provider Physician Assistant
DX: Z83.71 Family history of colonic polyps (principal); D36.9 Benign neoplasm, unspecified site; K57.30 Diverticulosis of large intestine without perforation or abscess without bleeding; K64.9 Unspecified hemorrhoids
CPT/HCPCS: 99213

== ENCOUNTER → 2023-07-02 07:15 | Outpatient (BNVA) | payer OTHER, SELFPAY | PROVIDERS: PCP Internal Medicine Medical Oncology; Visit Provider Physician Assistant ==

== ENCOUNTER 2023-09-02 14:52 | Outpatient (REF) | payer OTHER, SELFPAY | END 2023-09-02 14:53 | disposition home or self-care (01) | LOC: HO.MAMMO 14:52 | PROVIDERS: PCP Internal Medicine Medical Oncology; Visit Provider Internal Medicine Cardiovascular Disease | DX: Z12.31 Encounter for screening mammogram for malignant neoplasm of breast (principal) | CPT/HCPCS: 77063; 77067 ==

== ENCOUNTER → 2023-09-02 15:00 | Outpatient (BNV) | payer OTHER, SELFPAY | PROVIDERS: PCP Internal Medicine Medical Oncology; Visit Provider Radiology Diagnostic Radiology | DX: Z12.31 Encounter for screening mammogram for malignant neoplasm of breast (principal) | CPT/HCPCS: 77063; 77067 ==

== ENCOUNTER 2024-01-25 07:24 | Outpatient (REF) | payer OTHER, SELFPAY ==
[2024-01-25 07:39] LABS: MANUAL DIFF FLAG NO
[2024-01-25 08:01] LABS: Basophils Absolute Auto 0.1 X10*3/uL (0.0-0.2); Basophils Percent Auto 1.4 % (0-2); Eosinophils Absolute Auto 0.2 X10*3/uL (0.0-0.4); Eosinophils Percent Auto 4.3 % (0-4); Hematocrit 44.4 % (37.0-47.0); Hemoglobin 15.1 g/dl (12.0-16.0); Imm Gran Abs Auto 0.02 X10*3/uL (0.00-0.03); Imm Gran Pct Auto 0.4 % (0.0-0.4); Lymphocytes Absolute Auto 1.3 X10*3/uL (1.2-4.9); Mean Corpuscular Hemoglobin 31.7 pg (27.0-33.0); Mean Corpuscular Volume 93.1 fL (80.0-98.0); Mean Platelet Volume 9.7 fL (9.4-12.3); Monocytes Absolute Auto 0.4 X10*3/uL (0.1-1.2); Monocytes Percent Auto 7.9 % (2-11); Neutrophils Absolute Auto 3.4 x10*3/uL (2.0-8.3); Platelet Count 245 X10*3/uL (160-400); Red Blood Count 4.77 X10*6/uL (4.20-5.50); Red Cell Distribution Width 11.7 % (11.0-16.0); White Blood Count 5.5 X10*3/uL (4.8-10.8)
[2024-01-25 08:41] LABS: Alanine Aminotransferase 22 U/L (0-31); Albumin Level 4.2 g/dL (3.5-5.0); Alkaline Phosphatase 87 U/L (39-117); Anion Gap 10 (12-20); Aspartate Amino Transferase 30 U/L (5-31); Bilirubin Total 0.9 mg/dL (0.0-1.0); Blood Urea Nitrogen 20 mg/dL (9-16); Calcium 9.6 mg/dL (8.4-10.2); Carbon Dioxide 28 mmol/L (22-29); Chloride 106 mmol/L (96-108); Cholesterol 197 mg/dL (<200); Estimated Glomerular Filt Rate > 60; Glucose Fasting 93 mg/dL (60-99); HDL Cholesterol 70 mg/dL (>40); LDL Cholesterol Calculated 119 mg/dL (<100); Potassium 4.2 mmol/L (3.3-5.1); Sodium 140 mmol/L (135-145); Total Protein 6.9 g/dL (6.5-8.0); Triglycerides 44 mg/dL (<150)
== END 2024-01-25 07:25 | disposition home or self-care (01) ==
LOC: HO.LAB 07:24
PROVIDERS: PCP Internal Medicine Medical Oncology; Visit Provider Internal Medicine Medical Oncology
DX: M19.90 Unspecified osteoarthritis, unspecified site (principal); J45.909 Unspecified asthma, uncomplicated; E66.3 Overweight
CPT/HCPCS: 36415; 80053; 80061; 85025

== ENCOUNTER 2024-09-12 16:17 | Outpatient (REF) | payer OTHER, SELFPAY | END 2024-09-12 16:18 | disposition home or self-care (01) | LOC: HO.MAMMO 16:17 | PROVIDERS: PCP Internal Medicine Medical Oncology; Visit Provider Internal Medicine Medical Oncology | DX: Z12.31 Encounter for screening mammogram for malignant neoplasm of breast (principal) | CPT/HCPCS: 77063; 77067 ==

== ENCOUNTER → 2024-09-12 16:30 | Outpatient (BNV) | payer OTHER, SELFPAY | PROVIDERS: PCP Internal Medicine Medical Oncology; Visit Provider Internal Medicine | DX: Z12.31 Encounter for screening mammogram for malignant neoplasm of breast (principal) | CPT/HCPCS: 77063; 77067 ==

== ENCOUNTER 2025-01-19 06:50 | Outpatient (REF) | payer OTHER, SELFPAY ==
--- OUTSIDE RECORDS SUMMARY | 2025-01-19 06:52 | XMS_ITS ---
Author Organization Vamshi Subramanian III, MD Address [address] [place] [address] Care Team Providers Care Software Developer Intern Name Role Phone Vamshi Subramanian Primary Care Provider [phone] Allergies Allergen (clinical drug ingredient) Drug/Non Drug Allergy documented on EMR Reaction Allergy Type Onset Date Status Effexor Unknown Drug Allergy Active duloxetine Cymbalta Unknown Drug Allergy Active Livid (uncoded) Unknown Allergy Acti ve colophon (uncoded) Unknown Allergy A ctive Adhesive Unknown Allergy Active Dotarem anaphylaxis Drug Allergy Activ e trazodone Trazodone HCl Unknown Drug Allergy Act john paul Sulfur Unknown Drug Allergy Active fluoxetine Prozac Unknown Drug Allergy Active paroxetine Paxil Unknown Drug Allergy Active Erythrocin Unknown Drug Allergy Active REASON FOR VISIT [...] Date Provider Diagnosis Vamshi Subramanian III, MD [address] [place] [address] [address] [place] [address] 06/21/2024 Vamshi Subramanian Asthma J45.909 Assessments Encounter [...] a Week Next Appt Details Provider Name:Vamshi Lazone, 2025 04:00:00 PM, [address] [place] [address] [address], [place], [address], Progress Notes * CAM VaniaOB:1965 (59 yo F)Acc No.[id number]:06/21/2024 Progress Notes Patient:?Chela LEVY Provider:?Vamshi Subramanian MD :1965???Age:59 Y???Sex:Female D ate:06/21/2024 Address:[address] [place], [place] [phone] Subjective: * Chief Complaints: * ???1. Follow up. * HPI: ???COVID-19 Screening:?Questions?Have you had any new onset fever, chills, cough, congestion, sore throat, shortness of breath, muscle aches??No ?Have you been exposed to the virus within the last 10 days??No ?Have you travelled internationally in the last 10 days??No ?Have you been exposed to COVID-19 in the past??No * ROS:?General/Constitutional:?pain?only normal aches and pains.?Chills?denies.?Fatigue?admits.?Fever?denies.?ENT:?Decreased hearing?denies.?Respiratory:?Cough?denies.?Cardiovascular:?Chest pain with exertion?denies.?Dyspnea on exertion?denies.?Shortness of breath?denies.?Gastrointestinal:?Constipation?denies.?Decreased appetite?denies.?Diarrhea?denies.?Heartburn?denies.?Nausea?denies.?Rectal bleeding?denies.?Vomiting?denies.?Hematology:?bruising?denies.?petechiae?denies.?Swollen glands?none have been noted.?Genitourinary:?Frequent urination?denies.?Musculoskeletal:?Muscle aches?denies.?Painful joints?denies.?Sciatica?denies.?Weakness?denies.?Skin:?Itching?denies.?Rash?denies.?Skin lesion(s)?denies.?Neurologic:?Difficulty speaking?denies.?Dizziness?denies.?Headache?denies.?Low back pain?denies.?Psychiatric:?Depressed mood?denies.? * Medical History:?Last menstr ual period 12/2015, Asthma, Allergies. * Surgical History:?Denies Pas t Surgical History. * Hospitalization/Major Diagno stic Procedure:?Denies Past Hospitalization. * Family History:?Father: dece ased 82 yrs, skin cancer, carotid artery disease/stroke or [place], diagnosed with Cancer, DM, Hyperlipidemia.?Mother: 81 yrs, stroke, rheumatoid arthritis, dementia, mouth cancer, diagnosed with HTN, Cancer.?Spouse: alive.?3 brother(s) - healthy. 1 son(s) - healthy. .? Two of her brothers have hypertension and two of her brothers have hyperlipidemia. Her father recently at the [place] soldiers home after a long illness. She is not aware of any family history of mental illness or substance use disorder or addiction. * Social History:?Tobacco Use:?Tobacco Use/Smoking?Patient is a?nonsmoker ?Additional Findings: Tobacco Non-User?Aggressive non-smoker ???She was born in [place], [place]. She has been to Yann for 28 years and had one son Yann. 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 * Medications:?Taking ProAir H FA 108 (90 Base) MCG/ACT Aerosol Solution 2 [...] reviewed and reconciled with the patient * Allergies:?Erythrocin, Sulfu r, Prozac, Effexor, Cymbalta, Paxil, Trazodone HCl, Adhesive, colophon, Livid, Dotarem: anaphylaxis. Objective: * Vitals:? * Examination: ???General Examination: ?GENERAL APPEARANCE:?pleasant, well nourished, well developed, in no acute distress, calm and relaxed.?HEAD:?atraumatic, normocephalic.?EYES:?eomi, perrla, anicteric, conjugate.?EARS:?normal.?NOSE:?septum intact.?ORAL CAVITY:?normal, unremarkable.?NECK/THYROID:?no jugular venous distention, no carotid bruit, thyroid normal.?LYMPH NODES:?no enlarged lymph nodes,spleen normal.?SKIN:?no suspicious lesions, anicteric.?HEART:?no clicks, gallops, murmurs, or rubs, regular rhythm, S1, S2 normal, no s3, or vascular bruits.?LUNGS:?clear to auscultation .?BREASTS:??no masses palpable bilaterally.?ABDOMEN:?bowel sounds normal, no ascites, no organomegaly, no mass.?RECTAL EXAM:?not examined.?MUSCULOSKELETAL:?extremities unremarkable, no clubbing, cyanosis or edema.?PERIPHERAL PULSES:?normal.?NEUROLOGIC:?alert and oriented, cranial nerves 2-12 grossly intact, deep tendon reflexes 2+ symmetrical, motor strength normal upper and lower extremities, sensory exam intact.?PSYCH:?alert, oriented.? Assessment: * Assessment: 1.?Asthma - J45.909???Notes :She uses an inhaler occasionally but asthma has not been a significant problem in her life since her last visit. She has not been overly troubled in the pollen season.??? Plan: * Treatment: 2.?Others? Continue Estradiol Tablet, 10 MCG, 1 tablet, Vaginal, Two times a Week;?Continue ProAir HFA Aerosol Solution, 108 (90 Base) MCG/ACT, 2 puffs prn, Inhalation, every 4 hrs;?Continue Advil Tablet, 200 MG, 1 tablet as needed, Orally, four times a day.?? * Images: * The named appointment provid er may or may not be the originator of this progress note, and it is not deemed complete until electronically signed by the appointment provider. Sign off status: Pending * Provider:?Vamshi Subramanian MD Date:?05/25 Generated for Rad em/Julian/eTransmitting on:?01/19/2025 06:52 AM EDT History and Physical Notes * HPI (History of Present Illness) Category Sub-Category Detail Notes COVID-19 Screening Questions Have you had any new onset fever, chills, cough, congestion, sore throat, shortness of breath, muscle aches?: No Have you been exposed to the virus withi n the last 10 days?: No Have you travelled internationally in [facility] last 10 days?: No Have you [...]
[2025-01-19 07:08] LABS: MANUAL DIFF FLAG NO
[2025-01-19 07:37] LABS: Basophils Percent Auto 0.8 % (0-2); Eosinophils Absolute Auto 0.2 X10*3/uL (0.0-0.4); Eosinophils Percent Auto 3.6 % (0-4); Hematocrit 43.2 % (37.0-47.0); Hemoglobin 14.7 g/dl (12.0-16.0); Imm Gran Abs Auto 0.02 X10*3/uL (0.00-0.03); Imm Gran Pct Auto 0.4 % (0.0-0.4); Lymphocytes Absolute Auto 1.6 X10*3/uL (1.2-4.9); Lymphocytes Percent Auto 30.2 % (20-40); Mean Corpuscular Hemoglobin 31.7 pg (27.0-33.0); Mean Corpuscular Volume 93.3 fL (80.0-98.0); Mean Platelet Volume 9.8 fL (9.4-12.3); Monocytes Absolute Auto 0.4 X10*3/uL (0.1-1.2); Monocytes Percent Auto 7.5 % (2-11); Neutrophils Percent Auto 57.5 % (45-73); Platelet Count 227 X10*3/uL (160-400); Red Blood Count 4.63 X10*6/uL (4.20-5.50); Red Cell Distribution Width 11.4 % (11.0-16.0); White Blood Count 5.2 X10*3/uL (4.8-10.8)
[2025-01-19 08:10] LABS: Alanine Aminotransferase 27 U/L (0-31); Albumin Level 4.1 g/dL (3.5-5.0); Alkaline Phosphatase 80 U/L (39-117); Anion Gap 10 (12-20); Aspartate Amino Transferase 32 U/L (5-31); Bilirubin Total 0.8 mg/dL (0.0-1.0); Blood Urea Nitrogen 21 mg/dL (9-16); Carbon Dioxide 31 mmol/L (22-29); Chloride 105 mmol/L (96-108); Cholesterol 204 mg/dL (<200); Estimated Glomerular Filt Rate > 60; Glucose Fasting 88 mg/dL (60-99); HDL Cholesterol 61 mg/dL (>40); LDL Cholesterol Calculated 131 mg/dL (<100); Potassium 4.3 mmol/L (3.3-5.1); Sodium 142 mmol/L (135-145); Total Protein 6.6 g/dL (6.5-8.0); Triglycerides 62 mg/dL (<150)
== END 2025-01-19 06:51 | disposition home or self-care (01) ==
LOC: HO.LAB 06:50
PROVIDERS: PCP Internal Medicine Medical Oncology; Visit Provider Internal Medicine Medical Oncology
DX: J45.909 Unspecified asthma, uncomplicated (principal); E66.3 Overweight; M19.90 Unspecified osteoarthritis, unspecified site
CPT/HCPCS: 36415; 80053; 80061; 85025

== ENCOUNTER 2025-03-15 13:35 | Outpatient (REF) | payer OTHER, SELFPAY ==
--- OUTSIDE RECORDS SUMMARY | 2024-07-05 11:30 | XMS_ITS ---
Author Organization Vamshi Subramanian III, MD Address [address] [place] [address] Care Team Providers Care Investigator Welfare Name Role Phone Vamshi Subramanian Primary Care Provider Allergies Allergen (clinical drug ingredient) Drug/Non Drug Allergy documented on EMR Reaction Allergy Type Onset Date Status paroxetine Paxil Unknown Drug Allergy Active Erythrocin Unknown Drug Allergy Active Effexor Unknown Drug Allergy Active Cymbalta Unknown Drug Allergy Active Livid (uncoded) [...] Date Provider Diagnosis Vamshi Subramanian III, MD [address] [place] [address] [place] [address] 07/05/2024 Vamshi Subramanian Asthma J45.909 ; Overweight [...] (ICD-10 - Z91.09) She is using an zqha-dyu-kfcpwhm decongestant to treat her allergies with success. No additional medication seems needed. I recommended a nondrowsy antihistamine and Flonase as she needs it. 07/05/2024 Recurrent dislocation, right shoulder (ICD-10 - M24.411) The area has been repaired and she is very happy that she is now pain-free. 07/05/2024 Epiretinal membrane (ERM) of left eye (ICD-10 - H35.372) She will follow-up with the environmental protection inspector as scheduled. She will notify the environmental protection inspector at once if her vision changes. Plan [...] puffs prn Inhalation every 4 hrs 02/14/2020 Pending Test Test Name Order Date PROFILE, FASTING (COMPREHENSIVE METABOLI C) 07/05/2024 CBC w DIFF 07/05/2024 Lipid Panel 07/05/2024 Next Appt Details Follow Up: as scheduled, Bindu son: annual exam review labs Provider Name:Vamshi Subramanian, 03/17/2025 01:45:00 PM, [address] [place] [address] [address], [place], [address], Provider Name:Vamshi Subramanian, 08/02/2025 04:15:00 PM, [address] [place] [address] [address], [place], [address], Provider Name:Vamshi Subramanian, 02/02/2026 04:00:00 PM, [address] [place] [address] [address], [place], [address], Progress Notes * Vania LEVYOB:1965 (59 yo F)Acc No.[id number]:07/05/2024 Progress Notes Patient: Chela CLEMENTS Provider: Priya Subramanian MD :1965 A ge:59 Y S ex:Female Date:07/05/2024 Address:[address] [place] [id number] Subjective: * Chief Complaints: * P artial [...] yrs, skin cancer, carotid artery disease/stroke or [place], diagnosed with Cancer, DM, Hyperlipidemia. M other: 81 yrs, stroke, rheumatoid arthritis, dementia, mouth cancer, diagnosed with Cancer, HTN. S pouse: alive. 3 brother(s) - healthy. 1 son(s) - healthy. . Two of her brothers have hypertension and two of her brothers have hyperlipidemia. Her father recently at the [employer] soldiers home after a long illness. She is not aware of any family history of mental illness or substance use disorder or addiction. * Social History: T obacco Use: T obacco Use/Smoking P amado is a n onsmoker A dditional Findings: Tobacco Non-User A ggressive non-smoker S he was born in [place], [place]. She has been to Yann for 28 years and had one son Yann. 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 * Medications: T akingEstradiol 10 MCG Tablet [...] Z91.09 N otes :She is using an cjrj-qvh-oydkorf decongestant to treat her allergies with success. [...] N otes :She will follow-up with the environmental protection inspector as scheduled. She will notify the environmental protection inspector at once if her vision changes. Plan: [...] Subramanian MD Date: 09/04/2023 Generated for Rad em/Julian/Hemantitting on: 03/15/2025 02:10 PM EDT History and Physical Notes * HPI (History of Present Illness) Category Sub-Category Detail Notes COVID-19 Screening Questions Have you had any new onset fever, chills, cough, congestion, sore throat, shortness of breath, muscle aches?: No Have you been exposed to the virus with n the last 10 days?: No Have you travelled internationally in [facility] last 10 days?: No Have you been [...]
[2025-03-15 13:54] LABS: MANUAL DIFF FLAG NO
--- OUTSIDE RECORDS SUMMARY | 2025-03-15 14:11 | XMS_ITS | Clinical Summary ---
Author Organization [facility] Address [address] [place] [address] Care Team Providers Care Tower Climber Name Role Phone Unavailable Primary Care Provider Unavailabl e Immunizations Name Administration Dates Next Due Covid-19 (Moderna 12+) 100mcg/0.5mL dosage 09/28,08/31/2020 Social History Tobacco Use Types Packs/Day Years Used Date Smoking Tobacco: Never Assessed Sex and Gender Information Value Date Recorded Sex Assigned at Female 08/31/2020 1:11 PM EST Gender Identity Not on file Sexual Orientation Not on file Plan of Treatment Health Maintenance Due Date Last Done Comments Hepatitis C Screening 1965 Depression Screening 1976 Preventative Health Evaluation 01/30/1982 DTap / Tdap / Td (1 - Tdap) 01/30/1983 Cervical Cancer Screening (Pap Smear) 01/30/1985 Colon Cancer Screening (Colonoscopy) 01/30/2009 Breast Cancer Screening (Mammogram) 01/30/2014 Shingrix-Zoster Vaccine (1 o f 2) 01/30/2014 COVID-19 Vaccine (3 2023-2 5 season) 2024 09/28/2020, 08/31/2020 Influenza Vaccine (#1) 2025 RSV Adult > 60+ Yrs or (1 - 1-dose 75+ series) 01/30/2039 Hepatitis B Vaccines Aged Out No long er eligible based on patient's age to complete this topic Pneumococcal Vaccine Aged Out No long er eligible based on patient's age to complete this topic RSV Ped < 20 months Aged Out No longe r eligible based on patient's age to complete this topic Insurance Payer Benefit Plan / Group Subscriber ID Effective Dates Phone Address [facility] [id number] 2020-Present [address] [facility] [address] [place] [address] HMO
[2025-03-15 14:29] LABS: Hematocrit 43.4 % (37.0-47.0); Hemoglobin 14.3 g/dl (12.0-16.0); Imm Gran Abs Auto 0.03 X10*3/uL (0.00-0.03); Imm Gran Pct Auto 0.4 % (0.0-0.4); Lymphocytes Absolute Auto 1.7 X10*3/uL (1.2-4.9); Mean Corpuscular HGB Conc 32.9 g/dl (31.0-35.0); Mean Corpuscular Hemoglobin 31.0 pg (27.0-33.0); Mean Corpuscular Volume 94.1 fL (80.0-98.0); NRBC Abs Auto 0.000 X10*3/uL (0.0-0.012); NRBC Pct Auto 0.0 /100WBC (0.0-0.2); Platelet Count 261 X10*3/uL (160-400); Red Blood Count 4.61 X10*6/uL (4.20-5.50); White Blood Count 7.7 X10*3/uL (4.8-10.8)
[2025-03-15 15:07] LABS: Alanine Aminotransferase 44 U/L (0-31); Albumin Level 4.4 g/dL (3.5-5.0); Alkaline Phosphatase 85 U/L (39-117); Anion Gap 10 (12-20); Aspartate Amino Transferase 38 U/L (5-31); Blood Urea Nitrogen 14 mg/dL (9-16); Calcium 9.6 mg/dL (8.4-10.2); Carbon Dioxide 32 mmol/L (22-29); Chloride 103 mmol/L (96-108); Estimated Glomerular Filt Rate > 60; Magnesium 2.3 mg/dL (1.6-2.6); Potassium 4.4 mmol/L (3.3-5.1); Sodium 141 mmol/L (135-145); Total Protein 6.9 g/dL (6.5-8.0)
[2025-03-15 15:22] LABS: Free T4 (Free Thyroxine) 0.98 ng/dL (0.71-1.85); Thyroid Stimulating Hormone 1.43 uIU/mL (0.32-4.0)
== END 2025-03-15 13:36 | disposition home or self-care (01) ==
LOC: HO.LAB 13:35
PROVIDERS: PCP Internal Medicine Medical Oncology; Visit Provider Internal Medicine Medical Oncology
DX: G47.62 Sleep related leg cramps (principal); G25.81 Restless legs syndrome; E66.3 Overweight
CPT/HCPCS: 36415; 80053; 83735; 84439; 84443; 85025

== ENCOUNTER 2025-05-14 13:22 | Emergency (ER) | payer OTHER, SELFPAY ==
--- OUTSIDE RECORDS SUMMARY | 2025-01-31 12:00 | XMS_ITS ---
Author Organization Vamshi Subramanian III, MD Address [address] [place] [address] Care Team Providers Care Aerodynamics Engineer Name Role Phone Vamshi Subramanian Primary Care [...] Date Provider Diagnosis Vamshi Subramanian III, MD [address] [place] [address] [place] [address] 2025 Vamshi Subramanian Asthma J45.909 ; Recurrent [...] (ICD-10 - Z91.09) She is using an bybk-fwr-wttscaa decongestant to treat her allergies with success. [...] Up: 4 Months, Reason: ov Provider Name:Vamshi Subramanian, 08/02/2025 04:15:00 PM, [address] [place] [address] [address], [place], [address], Provider Name:Vamshi Subramanian, 02/02/2026 04:00:00 PM, [address] [place] [address] [address], [place], [address], Progress Notes * Vania LEVYOB:1965 (60 yo F)Acc No.[id number] Progress Notes Patient: Chela CLEMENTS Provider: Priya Subramanian MD :1965 A ge:60 Y S ex:Female Date:2025 Address:[address] [place] [id number] Subjective: * Chief Complaints: * A nnual [...] She is beginning to feel better. Her decorative cutting machine tender, Dr. Kolb retired from the [facility] last June. She has a new decorative cutting machine tender with an upcoming appointment. PHQ-9 L ittle [...] enies. S kin: Itching d enies. R smaia d enies. S kin lesion(s)?denies. N eurologic: Difficulty speaking d enies. D izziness d enies.?Headache d enies. L ow back pain d enies. P sychiatric: Depressed mood w hich is moderate. * Medical History: * Surgical History: T ooth removed 05/2024 * Hospitalization/Major Diagno stic Procedure: N o Hospitalization History. * Family History: F ather: 82 yrs, skin cancer, carotid artery disease/stroke or [place], diagnosed with Cancer, DM, Hyperlipidemia. M other: 81 yrs, stroke, rheumatoid arthritis, dementia, mouth cancer, diagnosed with Cancer, HTN. S pouse: alive. 3 brother(s) - healthy. 1 son(s) - healthy. . Two of her brothers have hypertension and two of her brothers have hyperlipidemia. Her father recently at the [facility] after a long illness. She [...] N egative S he was born in [place], [place]. She has been to Yann for 28 years and had one son Yann. 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 * Medications: T akingEstradiol 10 MCG Tablet [...] be done at patient request by the decorative cutting machine tender. ABDOMEN: b owel sounds normal, no ascites, [...] Z91.09 N otes :She is using an pcbt-vgy-ftgbndr decongestant to treat her allergies with success. [...] 0 2025 Generated for Rad em/Julian/Ned on: 0 05/14/2025 04:43 PM EDT History and Physical Notes * [...] done at patien t request by the decorative cutting machine tender MUSCULOSKELETAL: extremities unremark able, no clubbing, cyanosis or edema LYMPH NODES: no enlarged lymph no miguel angel,spleen normal RECTAL EXAM: not examined PSYCH: alert, oriented ORAL CAVITY: normal, unremarkable
--- OUTSIDE RECORDS SUMMARY | 2025-03-15 09:00 | XMS_ITS ---
Author Organization Vamshi Subramanian III, MD Address [address] [place] [place] [address] Care Team Providers Care Construction Ironworker Name Role Phone Vamshi Subramanian Primary Care [...] Magnesium Reviewed date:03/25/2025 07:15:05 PM Interpretation: Performing Lab:[address] [address] Notes/Report: Magnesium 2.3 1.6-2.6 mg/dL Free T4 (Free Thyroxine) Reviewed date:03/25/2025 07:15:05 PM Interpretation: Performing Lab:[address] [address] Notes/Report: Free T4 (Free Thyroxine) 0.98 0.71-1.85 [...] Date Provider Diagnosis Vamshi Subramanian III, MD [address] [place] [address] [place] [address] 03/15/2025 Vamshi Subramanian Asthma J45.909 ; Nocturnal [...] (ICD-10 - Z91.09) She is using an qvsm-zpc-iozmlfr decongestant to treat her allergies with success. [...] Pending Test Test Name Order Date PROFILE, RANDOM (COMPREHENSIVE METABOLIC ) 03/15/2025 TSH (THYROID STIMULATING HORMONE) 2024 CBC w DIFF 03/15/2025 Calcium 03/15/2025 Next Appt Details Follow Up: 2 - 3 Days, Reaso n: Telehealth Provider Name:Vamshi Subramanian, 08/02/2025 04:15:00 PM, [address] [place] [address] [address], [place], [address], Provider Name:Vamshi Subramanian, 02/02/2026 04:00:00 PM, [address] [place] [address] [place], [address], Progress Notes * Vania LEVYOB:1965 (60 yo F)Acc No.[id number]:03/15/2025 Patient: Chela CLEMENTS Provider: Priya Subramanian MD :1965 A ge:60 Y S ex:Female Date:03/15/2025 Address:[address] [place] [id number] Subjective: * Chief Complaints: * F requent [...] enies. * Medical History: * Surgical History: Rahul song removed 05/2024 * Hospitalization/Major Diagno stic Procedure: D enies Past Hospitalization * Family History: F ather: 82 yrs, skin cancer, carotid artery disease/stroke or [place], diagnosed with Cancer, DM, Hyperlipidemia. M other: 81 yrs, stroke, rheumatoid arthritis, dementia, mouth cancer, diagnosed with Cancer, HTN. S pouse: alive. 3 brother(s) - healthy. 1 son(s) - healthy. . Two of her brothers have hypertension and two of her brothers have hyperlipidemia. Her father recently at the [facility] home after a long illness. She is not aware of any family history of mental illness or substance use disorder or addiction. * Social History: T obacco Use: T obacco Control (Standard) T obacco use: N onsmoker A dditional Findings: Tobacco non-user A ggressive nonsmoker S he was born in [place], [place]. She has been to Yann for 28 years and had one son Yann. 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 * Medications: T akingEstradiol 10 MCG Tablet [...] Z91.09 N otes :She is using an [id number]-btq-fdmtrxm decongestant to treat her allergies with success. [...] Subramanian MD Date: 03/15/2025 Generated for Rad em/Julian/Hemantitting on: 05/14/2025 04:43 PM EDT History and Physical [...]
--- OUTSIDE RECORDS SUMMARY | 2025-03-17 09:45 | XMS_ITS ---
Author Organization Vamshi Subramanian III, MD Address [address] [place] [address] Care Team Providers Care Limb Driver Name Role Phone Vamshi Subramanian Primary Care [...] Date Provider Diagnosis Vamshi Subramanian III, MD [address] [place] [address] [place] [address] 03/17/2025 Vamshi Subramanian Asthma J45.909 ; Nocturnal [...] (ICD-10 - Z91.09) She is using an wksy-bfx-mjbxszo decongestant to treat her allergies with success. [...] As Scheduled, Bindu son: OV Provider Name:Vamshi Subramanian, 08/02/2025 04:15:00 PM, [address] [place] [address] [address], [place], [address], Provider Name:Vamshi Subramanian, 02/02/2026 04:00:00 PM, [address] [place] [address] MICHAEL FLORES, [place], [address], Progress Notes * Vania LEVYOB:1965 (60 yo F)Acc No.[id number]:03/17/2025 Patient: Chela CLEMENTS Provider: Priya Subramanian MD :1965 A ge:60 Y S ex:Female Date:03/17/2025 Address:[address] [place] [phone] Subjective: * Chief Complaints: * S evere [...] of provider rendering services: { ...} [address] [facility] [address] L ocation of patient: joselyn ortiz listed [...] have hyperlipidemia. Her father recently at the [employer] soldiers home after a long illness. She is not aware of any family history of mental illness or substance use disorder or addiction. * Social History: T obacco Use: T obacco Control (Standard) T obacco use: N onsmoker A dditional Findings: Tobacco non-user A ggressive nonsmoker S he was born in [place], [place]. She has been to Yann for 28 years and had one son Yann. 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 * Medications: T akingEstradiol 10 MCG Tablet [...] mg/dL) 69 (Ref Range: mg/dL) * Lab:Comprehensive [place]. Pane l Fast * Collection Date 01/19/2025 [...] Z91.09 N otes :She is using an lajn-cnn-mzyigin decongestant to treat her allergies with success. [...] 0 03/17/2025 Generated for Rad em/Julian/Hemantitting on: 0 05/14/2025 04:43 PM EDT History and Physical Notes * HPI (History of Present Illness) Category Sub-Category Detail Notes Telehealth Location of [facility] rendering services:: {...} [address] [place] [address] Location of patient:: address listed in demographics [...]
--- OUTSIDE RECORDS SUMMARY | 2025-03-20 09:41 | XMS_ITS ---
Author Organization Vamshi Subramanian III, MD Address [address] [place] [address] Care Team Providers Care Rn Assessment Name Role Phone Vamshi Subramanian Primary Care Provider [phone] REASON FOR VISIT told patient to call Social History Sex Assigned At : Social History Observation Description Sex Assigned At Female Encounters Encounter Location Date Provider Diagnosis Vamshi Subramanian III, MD [address] [place] [address] [address] [place] [address] 03/20/2025 Vamshi Subramanian Plan Of Treatment Next Appt Details Provider Name:Vamshi Subramanian, 08/02/2025 04:15:00 PM, [address] [place] [address] [place], [address], Provider Name:Vamshi Subramanian, 02/02/2026 04:00:00 PM, [address] [place] [address] [place], [address], Progress Notes * Vania LEVYOB:1965 (60 yo F)Acc No.[id number]:03/20/2025 Patient: Aba CLEMENTSon :1965 A ge:60 Y S ex:Female Address:[address] [place] [address] * true * Date: Generated for Printi ng/Faxing/eTransmitting on: 0 05/14/2025 04:42 PM EDT
--- OUTSIDE RECORDS SUMMARY | 2025-03-24 10:16 | XMS_ITS ---
Author Organization Vamshi Subramanian III, MD Address [address] [place] [address] Care Team Providers Care Speech Therapy Assistant Name Role Phone Vamshi Subramanian Primary Care Provider [phone] REASON FOR VISIT told patient to call Social History Sex Assigned At : Social History Observation Description Sex Assigned At Female Encounters Encounter Location Date Provider Diagnosis Vamshi Subramanian III, MD [address] [place] [address] [address] [facility] [place] [address] 03/24/2025 Vamshi Subramanian Plan Of Treatment Next Appt Details Provider Name:Vamshi Subramanian, 08/02/2025 04:15:00 PM, [address] [place] [address] [place], [address], Provider Name:Vamshi Subramanian, 02/02/2026 04:00:00 PM, [address] [place] [address] [place], [address], Progress Notes * Vania LEVYOB:1965 (60 yo F)Acc No.[id number]:03/24/2025 Patient: Aba CLEMENTSon :1965 A ge:60 Y S ex:Female Address:[address] [place] [phone] * true * Date: Generated for Printi ng/Faxing/eTransmitting on: 0 05/14/2025 11:20 AM EDT
--- NOTE | ~2025-05-14 | CT_ITS ---
CLINICAL HISTORY: Left mastoiditis evaluation --- Additional Notes or Special Instructions: Allergies to MRI contrast in past. Not CT contrast CT maxillofacial with contrast Comparison: None provided Findings: Bilateral mastoid air cells are well aerated without bony destructive changes or sequela of reported mastoiditis. Arachnoid granulations noted , including transverse sinuses. No dural venous sinus thrombosis of either sigmoid sinus or either imaged jugular vein. Right transverse sinus right sigmoid sinus are dominant. No acute appearing or suspicious air-fluid levels of the paranasal sinuses, with mucosal thickening noted. Nasal septum deviates to the left. No acute intraconal stranding within either orbit. No retrobulbar mass. Imaged brain parenchyma is unremarkable for technique and field of view. Metal artifacts noted including from multiple teeth. Mild right and pbzdatde-fz-vhtufm left osteoarthritis of the temporomandibular joints, with anatomic alignment maintained. Degenerative changes noted in the imaged cervical spine with reversal of the imaged cervical lordosis. Facet arthropathy including of the left C3-C4. IMPRESSION: 1. Bilateral mastoid air cells are well aerated, without sequela of reported mastoiditis. 2. Osteoarthritis of the temporomandibular joints, left worse than right. 3. Imaged paranasal sinuses are well aerated. This document has been electronically signed by: Jovanny Sotelo MD on 05/14/2025 19:18:47
--- OUTSIDE RECORDS SUMMARY | 2025-05-14 11:40 | XMS_ITS | Encounter Summary ---
Author Organization [facility] Address [address] [place] [address] Phone Care Team Providers Care Manager Of Program Name Role Phone Vamshi Subramanian MD Primary Care Provider [phone] Reason for Visit * Reason Comments Otalgia Left with swelling? X 1 day Encounter Details Date Type Department Care Team (Late st Contact Info) Description 05/14/2025 11:40 AM EDT Office Visit [facility] at [address] [address] Coco Puri, FIRST L[address] [place] [address] [email or web address] Pain of left mastoid (Primary Dx) Social History Tobacco Use Types Packs/Day Years Used Date Smoking Tobacco: Never Tobacco Cessation:Counseling Given: Not Answered Education Answer Date Recorded Are you interested in more education? Not on iza e 05/14/2025 Are you concerned about learning? Not on file 05/14/2025 No 05/14/2025 No 05/14/2025 Digital Access Answer Date Recorded No 05/14/2025 No 05/14/2025 Reliable internet access at home? Not on file 05/14/2025 Device with a working camera? Not on file Comments Unknown Sex and Gender Information Value Date Recorded Sex Assigned at Not on file Legal Sex Female 9:43 PM EDT Gender Identity Not on file Sexual Orientation Not on file documented as of this encounter Last Filed Vital Signs Vital Sign Reading Time Taken Comments Blood Pressure 123/78 05/14/2025 11:44 AM EDT Pulse 69 05/14/2025 11:44 AM EDT Temperature 36.9 C (98.4 F) 05/14/2025 11:44 AM EDT Respiratory Rate 16 05/14/2025 11:44 AM EDT Oxygen Saturation 100% 05/14/2025 11:44 AM EDT Inhaled Oxygen Concentration - - Weight 70.3 kg (155 lb) 05/14/2025 11:44 AM EDT Height 162.6 cm (5' 4 ) 05/14/2025 11:44 AM EDT Body Mass Index 26.61 05/14/2025 11:44 AM EDT documented in this encounter Patient Instructions * Patient Instructions* Coco Puri CNP - 05/14/2025 11:40 AM EDT Mastoiditis documented in this encounter Progress Notes * Coco Puri CNP - 05/14/2025 11:40 AM EDT I obtained verbal consent from the patient or their proxy to record this visit for purposes of producing a draft of the encounter documentation. History of Present Illness The patient presents with left ear pain and swelling behind ear Left Ear Pain and Swelling - The patient reports pain extending from the ear to the head, neck, and face. -Swelling and erythema behind auricle, improved today Jaw Clicking - She reports a clicking sound in her jaw while eating a few days ago. ROS: Per HPI Vitals: 05/14/25 1144 BP: 123/78 Pulse: 69 Resp: 16 Temp: 36.9 ??C (98.4 ??F) SpO2: 100% Physical Exam General Appearance: General: Pt not in acute distress. Appearance: Normal appearance. Well-developed. Not ill-appearing. Vital signs: Within normal limits HEENT: Tympanic membrane and canal clear. Tenderness in mastoid. Respiratory: Normal effort Skin: Warm and dry, no rash Neurological: General: No focal deficit present. Mental Status: Alert and oriented to person, place, and time. Psychiatric: Mood normal. Behavior normal. Thought content normal. Judgment normal. Assessment & Plan Mastoiditis -Tenderness, swelling c/w mastoiditis -Imaging indicated, referred to ED -Pt will go to [place] ED, attempted to call expect. documented in this encounter Plan of Treatment Not on file documented as of this encounter Visit Diagnoses Diagnosis Pain of left mastoid- Primary documented in this encounter Care Teams Manager Of Program Relationship Specialty Start Date End Date Vamshi Subramanian MD [address] [place] [address] PCP - General Medical Oncology 05/14/25 documented as of this encounter Additional Source Comments The information contained in this document represents components of the legal health record. It is not the complete legal health record.[facility]
[2025-05-14 13:34] VITALS: BP 142/70; PULSE 74; RESP 18; TEMP 36.3; O2SAT 100; BMI 26.6
--- NOTE | 2025-05-14 13:35 | ED.GENADULT ---
HPI - General Adult General Chief complaint: Ear Problems Stated complaint: ear pain Time Seen by Provider: 05/14/25 16:14 Source: patient Mode of arrival: ambulatory Limitations: no limitations History of Present Illness ED Provider: Dr. Bhagat HPI narrative: 60-year-old female presented hospital today for a left mastoid pain. Patient stated that this started yesterday. She is complaining of left ear pain went to urgent care however they are concerned about mastoiditis therefore patient was sent to the ER for evaluation. She stated that urgent care did not appreciate left ear infection. Related Data Home Medications ?Medication ?Instructions ?Recorded ?Confirmed albuterol sulfate 90 mcg/actuation 2 inh inhalation Q4-6H PRN 07/08/22 07/08/22 breath activated powder inhaler,sensor (Proair Digihaler) docosahexaenoic acid (dha)-epa 120 1 cap PO DAILY 07/08/22 07/08/22 mg-180 mg capsule (Fish Oil) estradiol 10 mg implant pellet mg subcut 07/08/22 07/08/22 ibuprofen 200 mg tablet (Advil) 200 mg PO Q6H PRN 07/08/22 07/08/22 multivitamin 1 tab PO DAILY 07/08/22 07/08/22 Previous Rx's ?Medication ?Instructions ?Recorded methylprednisolone 4 mg tablets in 4 mg PO DAILY #21 ea 05/14/25 a dose pack (Medrol (Darrel)) Allergies Allergy/AdvReac Type Severity Reaction Status Date / Time citalopram (CITALOPRAM) Allergy Severe SUICIDAL Verified 05/14/25 13:34 trazodone (TRAZODONE) Allergy Severe SUICIDAL Verified 05/14/25 13:34 zolpidem (From Ambien) Allergy Severe Confusion Verified 05/14/25 13:34 erythromycin base Allergy Intermediate CONFUSION Verified 05/14/25 13:34 (Erythromycin Base) latex (LATEX) Allergy Intermediate RASH Verified 05/14/25 13:34 Sulfa (Sulfonamide Allergy Intermediate ? RASH Verified 05/14/25 13:34 Antibiotics) sulfur Allergy Unknown Unknown Verified 05/14/25 13:34 gadoterate meglumine (From Allergy Anaphylaxis Verified 05/14/25 13:41 Dotarem) duloxetine (From Cymbalta) AdvReac Unknown Suicidal Verified 05/14/25 13:34 fluoxetine (From Prozac) AdvReac Unknown Suicidal Verified 05/14/25 13:34 paroxetine (From Paxil) AdvReac Unknown Suicidal Verified 05/14/25 13:34 venlafaxine (From Effexor) AdvReac Unknown Suicidal Verified 05/14/25 13:34 COLOPHON Allergy Unknown SUICIDAL Uncoded 01/16/23 21:07 Review of Systems Review of Systems: Pertinent review of systems as mentioned in HPI. All other system otherwise negative. [facility] Past Medical History [facility] Narrative: Medical history as mentioned in HPI Medical History (Updated 05/14/25 @ 19:41 by Leena Bhagat DO) Arrhythmia Asthma Surgical History History of mandibular surgery History of toe surgery History of colonoscopy Family History Family History Father Skin cancer Stroke Diabetes Hyperlipemia Mother Stroke Rheumatic arteritis Dementia Mouth cancer HTN (hypertension) Brother Hyperlipemia Brother HTN (hypertension) Social History Social History Household Members: Family Alcohol intake: never Patient Tobacco Use Status: Never used Tobacco Smoked in Last 30 Days: No Use of substances other than those prescribed or required for medical reasons: No Advance Directives: No Advance Directives Information Provided: No Patient : No Current occupational status: employed Current occupation: [employer]- Physical Exam ED Exam Exam: General: Pleasant, no distress, interacting appropriately Head: Normacephalic, atraumatic ENT: oral mucosa moist, neck supple, no tracheal deviation, patient's left mastoid is tender on palpation slight erythema, no erythema of the left TM membrane, there was some irritation in the canal itself. Neurological: Awake and alert, no facial droop noted Skin: Warm and dry Psychiatric: Appropriate mood and thoughts Vital Signs: Vital Signs - 24 hr 05/14/25 13:34 05/14/25 17:18 Temperature 97.4 F 98.0 F Pulse Rate 74 69 Respiratory Rate 18 16 Blood Pressure 142/70 H 127/67 Pulse Oximetry 100 98 Oxygen Delivery Method Room Air Room Air BMI result Body Mass Index 26.6 Course Course Course Narrative: This is a rapid medical exam performed by C. Mey, CERTIFIED OPHTHALMIC TECHNICIAN: Additional HPI, ROS, PE not included below will be deferred to primary provider. Patient is a 60-year-old female referred to the ED from urgent care for CT to r/o mastoiditis. States she developed pain behind L ear yesterday, now has a headache today and feels subjective fever. Told at not AOM or otitis externa. States pain is radiating to jaw and side of face. Plan: labs to start Medications Administered Discontinued Medications Generic Name Dose Route Start Last Admin Trade Name Natasha PRN Reason Stop Dose Admin Acetaminophen 975 mg 05/14/25 17:22 05/14/25 17:39 Acetaminophen 325 Mg Tablet PO 05/14/25 17:23 975 mg ONCE ONE Administration Iohexol 100 ml 05/14/25 17:55 05/14/25 17:55 Iohexol 350 Mg/Ml 100 Ml Infus..Btl IV 05/14/25 17:56 85 ml ONCE ONE Administration Medical Decision Making Medical Decision Making [facility] Narrative: 60-year-old female presented hospital today for evaluation of left mastoid pain that started yesterday On my exam there was no sign of left otitis media. I do not think she has otitis externa. She does have tenderness over the left mastoid area. We will obtain CT imaging to further assess this. CT imaging did not show any signs of mastoiditis. 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 Plan to discharge patient with instructions take NSAIDs for her osteoarthritis. We will plan to send off Medrol Dosepak in case NSAID it is not helping her. Encouraged her to give NSAID trial for a week prior to Medrol Dosepak. Patient will be discharged home. Patient does not have a leukocytosis. Differential Diagnosis Differential Diagnoses: The differential diagnosis associated with the presentation includes otitis media, otitis externa, left mastoiditis Lab Data [facility] Lab Attestation statement: I reviewed the patient's lab results. 05/14/25 14:09 05/14/25 14:09 Labs: Lab Results 05/14/25 Range/Units 14:09 WBC 6.7 (4.8-10.8) X10*3/uL RBC 4.40 (4.20-5.50) X10*6/uL Hgb 13.9 (12.0-16.0) g/dl Hct 43.7 (37.0-47.0) % MCV 99.3 H (80.0-98.0) fL MCH 31.6 (27.0-33.0) pg MCHC 31.8 (31.0-35.0) g/dl RDW 12.0 (11.0-16.0) % Plt Count 218 (160-400) X10*3/uL MPV 9.8 (9.4-12.3) fL Immature Gran % (Auto) 0.3 (0.0-0.4) % Neut % (Auto) 73.3 H (45-73) % Lymph % (Auto) 18.2 L (20-40) % Gordon % (Auto) 5.3 (2-11) % Eos % (Auto) 1.8 (0-4) % Baso % (Auto) 1.1 (0-2) % Lymph # (Auto) 1.2 (1.2-4.9) X10*3/uL Gordon # (Auto) 0.4 (0.1-1.2) X10*3/uL Eos # (Auto) 0.1 (0.0-0.4) X10*3/uL Baso # (Auto) 0.1 (0.0-0.2) X10*3/uL Abs Immat Gran (auto) 0.02 (0.00-0.03) X10*3/uL Absolute Neuts (auto) 4.9 (2.0-8.3) x10*3/uL Absolute Nucleated RBC 0.000 (0.0-0.012) X10*3/uL Nucleated RBC % (auto) 0.0 (0.0-0.2) /100WBC Sodium 141 (135-145) mmol/L Potassium 3.9 (3.3-5.1) mmol/L Chloride 111 H (96-108) mmol/L Carbon Dioxide 22 (22-29) mmol/L Anion Gap 12 (12-20) BUN 15 (9-16) mg/dL Creatinine 0.67 (0.5-1.4) mg/dL Estim Creat Clear Calc 88.0 Estimated GFR > 60 Random Glucose 74 (60-115) mg/dL Calcium 9.2 (8.4-10.2) mg/dL Total Bilirubin 0.5 (0.0-1.0) mg/dL AST 34 H (5-31) U/L ALT 26 (0-31) U/L Alkaline Phosphatase 103 (39-117) U/L Total Protein 6.6 (6.5-8.0) g/dL Albumin 3.9 (3.5-5.0) g/dL Independent Interpretation I performed an independent interpretation of an: CT Scan Radiology Impression Discussion of test interpretation with radiology: I have reviewed the radiologist's reading. Discharge Plan Discharge Clinical Impression: Ear pain, left Patient Disposition: Home, Self-Care Additional Instructions: Take 1000mg tylenol every 8 hours. 400 mg ibuprofen every 8 hours. If these are not helping with pain you can trial the steroids. If your symptoms are worsening, return to the ED. Prescriptions: New methylprednisolone [Medrol (Darrel)] 4 mg tablets,dose pack 4 mg PO DAILY Qty: 21 0RF No Action estradiol 10 mg pellet subcut ibuprofen [Advil] 200 mg tablet 200 mg PO Q6H PRN Proair Digihaler 90 mcg/actuation aero powdr breath act w/sensor 2 inh inhalation Q4-6H PRN Fish Oil 120-180 mg capsule 1 cap PO DAILY multivitamin Tablet 1 tab PO DAILY Print Language: Occitan
[2025-05-14 14:16] LABS: MANUAL DIFF FLAG NO
[2025-05-14 14:29] LABS: Hematocrit 43.7 % (37.0-47.0); Hemoglobin 13.9 g/dl (12.0-16.0); Imm Gran Abs Auto 0.02 X10*3/uL (0.00-0.03); Imm Gran Pct Auto 0.3 % (0.0-0.4); Lymphocytes Absolute Auto 1.2 X10*3/uL (1.2-4.9); Mean Corpuscular HGB Conc 31.8 g/dl (31.0-35.0); Mean Corpuscular Hemoglobin 31.6 pg (27.0-33.0); Mean Corpuscular Volume 99.3 fL (80.0-98.0); NRBC Abs Auto 0.000 X10*3/uL (0.0-0.012); NRBC Pct Auto 0.0 /100WBC (0.0-0.2); Platelet Count 218 X10*3/uL (160-400); Red Blood Count 4.40 X10*6/uL (4.20-5.50); White Blood Count 6.7 X10*3/uL (4.8-10.8)
[2025-05-14 14:31] LABS: Alanine Aminotransferase 26 U/L (0-31); Albumin Level 3.9 g/dL (3.5-5.0); Alkaline Phosphatase 103 U/L (39-117); Anion Gap 12 (12-20); Aspartate Amino Transferase 34 U/L (5-31); Blood Urea Nitrogen 15 mg/dL (9-16); Calcium 9.2 mg/dL (8.4-10.2); Carbon Dioxide 22 mmol/L (22-29); Chloride 111 mmol/L (96-108); Creatinine Clr Calc Pharmacy 88.0; Estimated Glomerular Filt Rate > 60; Potassium 3.9 mmol/L (3.3-5.1); Sodium 141 mmol/L (135-145); Total Protein 6.6 g/dL (6.5-8.0)
--- OUTSIDE RECORDS SUMMARY | 2025-05-14 16:43 | XMS_ITS | Clinical Summary ---
Author Organization [facility] Address [address] [place] [address] Care Team Providers Care Psychology Instructor Name Role Phone Unavailable Primary Care Provider [...] o f 2) 01/30/2014 COVID-19 Vaccine (3 2024-2 6 season) 2025 09/28/2020, 08/31/2020 Influenza Vaccine (#1) 2025 RSV [...] Group Subscriber ID Effective Dates Phone Address [facility] [id number] 2020-Present [address] [facility] [address] [place] [id number] HMO
--- OUTSIDE RECORDS SUMMARY | 2025-05-14 16:43 | XMS_ITS | Patient Health Record ---
Author Organization Vamshi Subramanian III, MD Address [address] [place] [address] Care Team Providers Care Machinist Wood Name Role Phone Vamshi Subramanian Primary Care Provider [phone] Allergies Allergen (clinical drug ingredient) Drug/Non Drug [...] 1.3 BLD Negative Negative - Menstrating No Magnesium Reviewed date:03/25/2025 07:15:05 PM Interpretation: Performing Lab:[facility], [address] [place] [phone] Notes/Report: Magnesium 2.3 1.6-2.6 mg/dL Free T4 (Free Thyroxine) Reviewed date:03/25/2025 07:15:05 PM Interpretation: Performing Lab:[facility], [address] [facility], [place] [address] Notes/Report: Free T4 (Free Thyroxine) 0.98 0.71-1.85 ng/dL MM tomosynthesis screening B I Reviewed date:09/25/2024 09:05:37 AM Interpretation: Performing Lab: Notes/Report: [facility] [address] [place] [address] Mammography Report Signed Patient: Chela Puri MR#: [id number] [birth year] : 1965 Acct:[id number] Age/Sex: 59 / F ADM Date: 09/12/24 Loc: HO.MAMMO Attending Dr: Vamshi Subramanian MD Ordering Physician: Vamshi Subramanian MD Results: 1Negativ e Date of Service: 09/12/24 Follow Up: 1 Year From Orig ina Mammogram Procedure(s): MM tomosynthesis screening BI Accession Number(s): [id number] cc: Vamshi Subramanian MD EXAMINATION: MM SCREENING DIGITAL BREAST TOMOSYNTHESIS, BILATERAL CLINICAL INFORMATION: Screening. Asymptomatic. COMPARISON: Mammography: Comparison is made with available priors TECHNIQUE: Digital breast mammography with tomosynthesis is performed in both the craniocaudal and mediolateral oblique views along with computer-aided detection (CAD). FINDINGS: There are scattered areas of fibroglandular density (ACR BI-RADS breast composition Category b). There are no significant masses, abnormal calcifications, or other abnormalities. MM/MM tomosynthesis screening BI IMPRESSION: No mammographic evidence of malignancy. ASSESSMENT: BI-RADS BI-RADS 1 - Negative RECOMMENDATION: Routine annual mammography screening. 1 year F/U This examination should not preclude the clinical evaluation of a suspicious palpable abnormality. This patient's information was entered into a reminder system with a target due date for their next mammogram. Electronically signed by: Ani Rodriguez DO 09/21/2024 09:41 AM EST Dictated By: Ani Rodriguez DO Signed By: <Electronically signed by Ani Rodriguez DO in OV> 09/21/24 0941 DD/ 1620 TD/TT: 09/12/24 163 Record Producer: [facility] [address] [place], [place] [address] Mammography Report Signed Patient: Mallory Puri MR#: [id number] 46 : 1965 Acct:[id number] Age/Sex: 59 / F ADM Date: 09/12/24 Loc: HO.MAMMO Attending Dr: Vamshi Subramanian MD Ordering Physician: Vamshi Subramanian MD Results: 1Negativ e Date of Service: 09/12/24 Follow Up: 1 Year From Orig ina Mammogram Procedure(s): MM tomosynthesis screening BI Accession Number(s): [id number] cc: Vamshi Subramanian MD EXAMINATION: MM SCREENING DIGITAL BREAST TOMOSYNTHESIS, BILATERAL CLINICAL INFORMATION: Screening. Asymptomatic. COMPARISON: Mammography: Compari son is made with available priors TECHNIQUE: Digital breast mammography with tomosynthesis is performed in both the craniocaudal and mediolateral oblique views along with computer-aided detection (CAD). FINDINGS: There are scattered areas of fibroglandular density (ACR BI-RADS breast composition Category b). There are no significant masses, abnormal calcifications, or other abnormalities. MM/MM tomosynthesis screening BI IMPRESSION: No mammographic evidence of malignancy. ASSESSMENT: BI-RADS BI-RADS 1 - Negative RECOMMENDATION: Routine annual mammography screening. 1 year F/U This examination miguelina uld not preclude the clinical evaluation of a suspicious palpable abnormality. This patient's information was entered into a reminder system with a target due date for their next mammogram. Electronically brittani d by: Ani Rodriguez DO 09/21/2024 09:41 AM EST Dictated By: Ani Rodriguez DO Signed By: <Electronically signed by Ani Rodriguez DO in OV> 09/21/24 0941 DD/ 1620 TD/TT: 09/12/24 1633 Record Producer: MAMMOGRAM DIGITAL BILATERAL SCREEN Reviewed date:2025 03:57:19 PM Interpretation:undefined Performing Lab: Notes/Report: undefined Complete Blood Count Auto Di ff Reviewed date:01/22/2025 08:00:09 PM Interpretation: Performing Lab:[facility], [address] [place] [phone] Notes/Report: White Blood Count 5.2 4.8-10.8 X10*3/uL Red Blood Count 4.63 4.20-5.50 X10*6/uL Hemoglobin 14.7 12.0-16.0 g/dl Hematocrit 43.2 37.0-47.0 % Mean Corpuscular Volume 93.3 80.0-98.0 fL Mean Corpuscular Hemoglobin 31.7 27.0-33.0 pg Mean Corpuscular HGB Conc 34.0 31.0-35.0 g/dl Red Cell Distribution Width 11.4 11.0-16.0 % Platelet Count 227 160-400 X10*3/uL Mean Platelet Volume 9.8 9.4-12.3 fL Neutrophils Percent Auto 57.5 45-73 % Imm Gran Pct Auto 0.4 0.0-0.4 % Lymphocytes Percent Auto 30.2 20-40 % Monocytes Percent Auto 7.5 2-11 % Eosinophils Percent Auto 3.6 0-4 % Basophils Percent Auto 0.8 0-2 % NRBC Pct Auto 0.0 0.0-0.2 /100WBC Neutrophils Absolute Auto 3.0 2.0-8.3 x10*3/u L Imm Gran Abs Auto 0.02 0.00-0.03 X10*3/uL Lymphocytes Absolute Auto 1.6 1.2-4.9 X10*3/u L Monocytes Absolute Auto 0.4 0.1-1.2 X10*3/uL Eosinophils Absolute Auto 0.2 0.0-0.4 X10*3/u L Basophils Absolute Auto 0.0 0.0-0.2 X10*3/uL NRBC Abs Auto 0.000 0.0-0.012 X10*3/uL Comprehensive [place]. Panel Fa st Reviewed date:01/22/2025 08:00:09 PM Interpretation: Performing Lab:[facility], [address] [place] [phone] Notes/Report: Sodium 142 135-145 mmol/L Potassium 4.3 3.3-5.1 mmol/L Chloride 105 96-108 mmol/L Carbon Dioxide 31 22-29 mmol/L Anion Gap 10 12-20 Blood Urea Nitrogen 21 9-16 mg/dL Creatinine 0.81 0.5-1.4 mg/dL Estimated Glomerular Filt Rate > 60 Chronic Kidney Disease: Estimated GFR < 60 mL/min/1.73m2 Severe Kidney Disease: Estimated GFR < 15 mL/min/1.73m2 Glucose Fasting 88 60-99 mg/dL Calcium 10.0 8.4-10.2 mg/dL Bilirubin Total 0.8 0.0-1.0 mg/dL Aspartate Amino Transferase 32 5-31 U/L Alanine Aminotransferase 27 0-31 U/L Total Protein 6.6 6.5-8.0 g/dL Albumin Level 4.1 3.5-5.0 g/dL Alkaline Phosphatase 80 39-117 U/L Lipid Panel Reviewed date:01/22/2025 08:00:09 PM Interpretation: Performing Lab:[address] [phone] Notes/Report: Triglycerides 62 <150 mg/dL Desirable Triglyceride: less than 150 mg/dL Borderline High Triglyceride 150-199 mg/dL High Triglyceride: 200-499 mg/dL Very High Triglyceride: greater than or equal to 5OO mg/dL Cholesterol 204 <200 mg/dL Desirable Cholesterol: less than 200 mg/dL Borderline High Cholesterol: 200-239 mg/dL High Cholesterol: greater than 239 mg/dL LDL Cholesterol Calculated 131 <100 mg/dL Desirable LDL: less than 100 mg/dL Near Optimal/Above Optimal LDL: 110-129 mg/dL Borderline High LDL: 130-159 mg/dL High LDL: 160-189 mg/dL Very High LDL: greater than or equal to 190 mg/dL HDL Cholesterol 61 >40 mg/dL Desirable HDL: greater than 40 mg/dL Note: This HDL assay may give artificially low results in patients with liver disease. Complete Blood Count Auto Di ff Reviewed date:03/25/2025 07:15:05 PM Interpretation: Performing Lab:[address] [phone] Notes/Report: White Blood Count 7.7 4.8-10.8 X10*3/uL Red Blood Count 4.61 4.20-5.50 X10*6/uL Hemoglobin 14.3 12.0-16.0 g/dl Hematocrit 43.4 37.0-47.0 % Mean Corpuscular Volume 94.1 80.0-98.0 fL Mean Corpuscular Hemoglobin 31.0 27.0-33.0 pg Mean Corpuscular HGB Conc 32.9 31.0-35.0 g/dl Red Cell Distribution Width 12.2 11.0-16.0 % Platelet Count 261 160-400 X10*3/uL Mean Platelet Volume 9.8 9.4-12.3 fL Neutrophils Percent Auto 69.0 45-73 % Imm Gran Pct Auto 0.4 0.0-0.4 % Lymphocytes Percent Auto 21.7 20-40 % Monocytes Percent Auto 6.8 2-11 % Eosinophils Percent Auto 1.3 0-4 % Basophils Percent Auto 0.8 0-2 % NRBC Pct Auto 0.0 0.0-0.2 /100WBC Neutrophils Absolute Auto 5.3 2.0-8.3 x10*3/u L Imm Gran Abs Auto 0.03 0.00-0.03 X10*3/uL Lymphocytes Absolute Auto 1.7 1.2-4.9 X10*3/u L Monocytes Absolute Auto 0.5 0.1-1.2 X10*3/uL Eosinophils Absolute Auto 0.1 0.0-0.4 X10*3/u L Basophils Absolute Auto 0.1 0.0-0.2 X10*3/uL NRBC Abs Auto 0.000 0.0-0.012 X10*3/uL Comprehensive Met. Panel Reviewed date:03/25/2025 07:15:05 PM Interpretation: Performing Lab:[facility], [address] [place] [phone] Notes/Report: Sodium 141 135-145 mmol/L Potassium 4.4 3.3-5.1 mmol/L Chloride 103 96-108 mmol/L Carbon Dioxide 32 22-29 mmol/L Anion Gap 10 12-20 Blood Urea Nitrogen 14 9-16 mg/dL Creatinine 0.77 0.5-1.4 mg/dL Estimated Glomerular Filt Rate > 60 Chronic Kidney Disease: Estimated GFR < 60 mL/min/1.73m2 Severe Kidney Disease: Estimated GFR < 15 mL/min/1.73m2 Glucose Random 88 60-115 mg/dL Calcium 9.6 8.4-10.2 mg/dL Bilirubin Total 0.6 0.0-1.0 mg/dL Aspartate Amino Transferase 38 5-31 U/L Alanine Aminotransferase 44 0-31 U/L Total Protein 6.9 6.5-8.0 g/dL Albumin Level 4.4 3.5-5.0 g/dL Alkaline Phosphatase 85 39-117 U/L Thyroid Stimulating Hormone Reviewed date:03/25/2025 07:15:05 PM Interpretation: Performing Lab:[facility], [address] [place] [phone] Notes/Report: Thyroid Stimulating Hormone 1.43 0.32-4.0 uIU/mL TSH 3rd Generation ([facility]) Complete Blood Count Auto Di ff (Not yet reviewed by provider) Interpretation: Performing Lab:[address] [address] Notes/Report: White Blood Count 6.7 4.8-10.8 X10*3/uL Red Blood Count 4.40 4.20-5.50 X10*6/uL Hemoglobin 13.9 12.0-16.0 g/dl Hematocrit 43.7 37.0-47.0 % Mean Corpuscular Volume 99.3 80.0-98.0 fL Mean Corpuscular Hemoglobin 31.6 27.0-33.0 pg Mean Corpuscular HGB Conc 31.8 31.0-35.0 g/dl Red Cell Distribution Width 12.0 11.0-16.0 % Platelet Count 218 160-400 X10*3/uL Mean Platelet Volume 9.8 9.4-12.3 fL Neutrophils Percent Auto 73.3 45-73 % Imm Gran Pct Auto 0.3 0.0-0.4 % Lymphocytes Percent Auto 18.2 20-40 % Monocytes Percent Auto 5.3 2-11 % Eosinophils Percent Auto 1.8 0-4 % Basophils Percent Auto 1.1 0-2 % NRBC Pct Auto 0.0 0.0-0.2 /100WBC Neutrophils Absolute Auto 4.9 2.0-8.3 x10*3/u L Imm Gran Abs Auto 0.02 0.00-0.03 X10*3/uL Lymphocytes Absolute Auto 1.2 1.2-4.9 X10*3/u L Monocytes Absolute Auto 0.4 0.1-1.2 X10*3/uL Eosinophils Absolute Auto 0.1 0.0-0.4 X10*3/u L Basophils Absolute Auto 0.1 0.0-0.2 X10*3/uL NRBC Abs Auto 0.000 0.0-0.012 X10*3/uL Comprehensive Met. Panel (No t yet reviewed by provider) Interpretation: Performing Lab:[facility], [address] [place] [phone] Notes/Report: Sodium 141 135-145 mmol/L Potassium 3.9 3.3-5.1 mmol/L Chloride 111 96-108 mmol/L Carbon Dioxide 22 22-29 mmol/L Anion Gap 12 12-20 Blood Urea Nitrogen 15 9-16 mg/dL Creatinine 0.67 0.5-1.4 mg/dL Creatinine Clr Calc Pharmacy 88.0 Provided height and weight: 165.1 cm, 72.6 kg. eGFR (calculated from the MDRD study equation) and eCrCl (calculated from the Cockcroft-Gault equation) are based on different parameters and may not yield comparable results. If eCrCl result is absurd, please check patient's height/weight. Estimated Glomerular Filt Rate > 60 Chronic Kidney Disease: Estimated GFR < 60 mL/min/1.73m2 Severe Kidney Disease: Estimated GFR < 15 mL/min/1.73m2 Glucose Random 74 60-115 mg/dL Calcium 9.2 8.4-10.2 mg/dL Bilirubin Total 0.5 0.0-1.0 mg/dL Aspartate Amino Transferase 34 5-31 U/L Alanine Aminotransferase 26 0-31 U/L Total Protein 6.6 6.5-8.0 g/dL Albumin Level 3.9 3.5-5.0 g/dL Alkaline Phosphatase 103 39-117 U/L Reason For Referral No Information Medications Medication SIG (Take, Route, Frequency, Duration) [...] prn Inhalation every 4 hrs 02/14/2020 Active Immunizations Vaccine Route Administration Date Status Comme nts COVID- 19 Vaccine Unknown 09/28/2020 Administered COVID- 19 Vaccine Unknown 08/31/2020 Administered COVID PFIZER Unknown 08/05/2021 Administered Tdap Unknown 01/26/2024 Administered SHINGRIX Unknown 04/20/2024 Administered RSV vaccine, bivalent, prote in subunit RSV prefusion F Unknown 04/20/2024 Administered Influenza, quad Unknown 05/08/2024 Administered Social History Tobacco Use: Social History Observation [...] ast year? No Points 0 Interpretation Negative Problems Problem Type SNOMED Code ICD Code Onset Dates Problem Status W/U Status Risk Notes Problem 314754174 Asthma (J45.909) Active confirmed She uses an inhaler occasionally but asthma has not been a significant problem in her life since her last visit. She has not been overly troubled in the pollen season. Problem Overweight (867319654) Overweight (E66.3) Active confirmed He is slightly overweight with a BMI slightly over 25. We discussed diet and nutrition and made a plan to lose weight at a rate of one half of a pound per week. Problem 252826309149967 Recurrent dislocation, right shoulder (M24.411) Active confirmed The area has been repaired and she is very happy that she is now pain-free. Problem [id number] Environmental allergies (Z91.09) Active confirmed She is using an mcjm-qcg-ddrnped decongestant to treat her allergies with success. No additional medication seems needed. I recommended a nondrowsy antihistamine and Flonase as she needs it. Problem 448065520 Osteoarthritis (M19.90) Active confirmed Of arthritic discomfort is mild and intermittent. It was not bothering her today. She will use acetaminophen and ibuprofen. Problem 868655287 Atypical chest pain (R07.89) Active confirmed She reports th at she has had no further episodes of sharp stabbing chest pain. Problem Restless legs syndrome (84033718) Restless leg syndrome (G25.81) Active confirmed She reports she has restless leg syndrome but also says she has a during the day. This complaint will be investigated more fully. Problem Cramp in lower leg associated with rest (146740957) Nocturnal leg cramps (G47.62) Active confirmed These are present in both legs and occur nightly. Comprehensive blood work has been ordered. I recommended she stop running but continue her other muscle strengthening exercises. Blood work iis unremarkable. She will go to physical therapy. We discussed stretches and she will take nnaproxen prior to going to sleep. Problem [id number] Epiretinal membrane (ERM) of left eye (H35.372) Active confirmed She will follow-up with the operations asst as scheduled. She will notify the operations asst at once if her vision changes. Vital Signs Heart Rate 54 /min 03/15/2025 Temperature 97.5 degrees Fahrenheit 03/15/2025 Blood pressure diastolic 91 mm Hg 03/15/2025 Height 65 in 03/17/2025 Blood pressure systolic 135 mm Hg 03/15/2025 Weight 154 lbs 03/17/2025 BMI 25.62 kg/m2 03/17/2025 Encounters Encounter Location Date Provider Diagnosis Vamshi Subramanian III, MD [address] [place] [address] [place] [phone] 07/05/2024 Vamshi Subramanian Asthma J45.909 ; Overweight E66.3 ; Osteoarthritis M19.90 ; Environmental allergies Z91.09 ; Recurrent dislocation, right shoulder M24.411 and Epiretinal membrane (ERM) of left eye H35.372 Vamshi Subramanian III, MD [address] [place] [address] [place] [phone] 2025 Vamshi Subramanian Asthma J45.909 ; Recurrent dislocation, right shoulder M24.411 ; Atypical chest pain R07.89 ; Environmental allergies Z91.09 and Overweight E66.3 Vamshi Subramanian III, MD [address] [place] [address] [place] [phone] 03/15/2025 Vamshi Subramanian Asthma J45.909 ; Nocturnal leg cramps G47.62 ; Restless leg syndrome G25.81 ; Overweight E66.3 ; Environmental allergies Z91.09 and Recurrent dislocation, right shoulder M24.411 Vamshi Subramanian III, MD [address] [place] [address] [place] [phone] 03/17/2025 Vamshi Subramanian Asthma J45.909 ; Nocturnal leg cramps G47.62 ; Environmental allergies Z91.09 ; Recurrent dislocation, right shoulder M24.411 ; Restless leg syndrome G25.81 and Overweight E66.3 Vamshi Subramanian III, MD [address] [place] [address] [place] [phone] 05/27/2024 Vamshi Subramanian III, MD [address] [place] [address] [place] [phone] 03/20/2025 Vamshi Subramanian III, MD [address] [place] [address] [place] [phone] 03/24/2025 Vamshi Subramanian Assessments Encounter Date Diagnosis (ICD Code) Assessment [...] one half of a pound per week. 2025 Asthma (ICD-10 - J45.909) She uses an inhaler occasionally but asthma has not been a significant problem in her life since her last visit. She has not been overly troubled in the pollen season. 2025 Recurrent dislocation, right shoulder (ICD-10 - M24.411) The area has been repaired and she is very happy that she is now pain-free. 03/15/2025 Asthma (ICD-10 - J45.909) She uses [...] Followup in 48 hours to discuss labs. 03/17/2025 Asthma (ICD-10 - J45.909) She uses [...] take nnaproxen prior to going to sleep. 07/05/2024 Osteoarthritis (ICD-10 - M19.90) Of arthritic discomfort is mild and intermittent. It was not bothering her today. She will use acetaminophen and ibuprofen. 2025 Atypical chest pain (ICD-10 - R07.89) She reports that she has had no further episodes of sharp stabbing chest pain. 03/15/2025 Restless leg syndrome (ICD-10 - G25.81) She reports she has restless leg syndrome but also says she has a during the day. This complaint will be investigated more fully. 03/17/2025 Environmental allergies (ICD-10 - Z91.09) She is using an ohoh-bew-fqmrkky decongestant to treat her allergies with success. No additional medication seems needed. I recommended a nondrowsy antihistamine and Flonase as she needs it. 07/05/2024 Environmental allergies (ICD-10 - Z91.09) She is using an dgwy-pei-oqkiaiq decongestant to treat her allergies with success. No additional medication seems needed. I recommended a nondrowsy antihistamine and Flonase as she needs it. 2025 Environmental allergies (ICD-10 - Z91.09) She is using an xjga-dbq-phyrwvs decongestant to treat her allergies with success. No additional medication seems needed. I recommended a nondrowsy antihistamine and Flonase as she needs it. 03/15/2025 Overweight (ICD-10 - E66.3) He is slightly overweight with a BMI slightly over 25. We discussed diet and nutrition and made a plan to lose weight at a rate of one half of a pound per week. 03/17/2025 Recurrent dislocation, right shoulder (ICD-10 - M24.411) The area has been repaired and she is very happy that she is now pain-free. 07/05/2024 Recurrent dislocation, right shoulder (ICD-10 - M24.411) The area has been repaired and she is very happy that she is now pain-free. 2025 Overweight (ICD-10 - E66.3) She is very slightly overweight. We discussed diet and nutrition. She will try to lose weight at a rate of one half of a pound per week. 03/15/2025 Environmental allergies (ICD-10 - Z91.09) She is using an psjn-bwm-vwnppsd decongestant to treat her allergies with success. No additional medication seems needed. I recommended a nondrowsy antihistamine and Flonase as she needs it. 03/17/2025 Restless leg syndrome (ICD-10 - G25.81) She reports she has restless leg syndrome but also says she has a during the day. This complaint will be investigated more fully. 07/05/2024 Epiretinal membrane (ERM) of left eye (ICD-10 - H35.372) She will follow-up with the operations asst as scheduled. She will notify the operations asst at once if her vision changes. 03/15/2025 Recurrent dislocation, right shoulder (ICD-10 - M24.411) The area has been repaired and she is very happy that she is now pain-free. 03/17/2025 Overweight (ICD-10 - E66.3) He is slightly overweight with a BMI slightly over 25. We discussed diet and nutrition and made a plan to lose weight at a rate of one half of a pound per week. Plan Of Treatment Pending Test Test Name Order Date PROFILE, FASTING (COMPREHENSIVE METABOLI C) 05/02/2022 PROFILE, FASTING (COMPREHENSIVE METABOLI C) 01/17/2022 PROFILE, FASTING (COMPREHENSIVE METABOLI C) 07/05/2024 PROFILE, FASTING (COMPREHENSIVE METABOLI C) 01/21/2023 PROFILE, RANDOM (COMPREHENSIVE METABOLIC ) 03/15/2025 LIPID PANEL 01/21/2023 TSH (THYROID STIMULATING HORMONE) 2024 CBC w DIFF 01/21/2023 CBC w DIFF 05/02/2022 CBC w DIFF 03/15/2025 CBC w DIFF 01/17/2022 CBC w DIFF 07/05/2024 SED RATE (ESR) 01/17/2022 SCREENING COLONOSCOPY 06/18/2023 VITAMIN D 25-OH TOTAL 05/02/2022 Complete Blood Count Auto Diff Comprehensive Met. Panel 05/14/2025 Calcium 03/15/2025 Lipid Panel 05/02/2022 Lipid Panel 07/05/2024 Lipid Panel 01/17/2022 Next Appt Details Provider Name:Vamshi Subramanian, 08/02/2025 04:15:00 PM, [address] [place] [address] [address], [place], [phone], Provider Name:Vamshi Subramanian, 02/02/2026 04:00:00 PM, [address] [place] [address] [address], [place], [phone], Insurance Providers Payer Name Payer Address Payer Phone Subscriber Number Group Number Insured Name Patient Relationship to Insured Coverage Start Date Coverage End Date [facility] [address] [facility] [place] [phone] [id number] Chela Puri Self - patient is the insured Medical (General) History Medical History History ICD Code last menstrual period 12/2015 asthma allergies Surgical History Surgery Date(Month/Year) Tooth removed 05/2024
--- OUTSIDE RECORDS SUMMARY | 2025-05-14 16:43 | XMS_ITS | Clinical Summary ---
Author Organization [facility] Address [address] [place] [id number] Phone Care Team Providers Care Documentation Analyst Name Role Phone Vamshi Subramanian MD Primary Care Provider [phone] Allergies Active Allergy Reactions Criticality Noted Date Comments Zolpidem 05/14/2025 Sulfamethoxazole-Trimethoprim 2024 Citalopram 05/14/2025 Duloxetine 05/14/2025 Venlafaxine 05/14/2025 Erythromycin 05/14/2025 Gadolinium-Containing Contrast Media 05/14/2025 Paroxetine Hcl 05/14/2025 Hydroxychloroquine 05/14/2025 Fluoxetine 05/14/2025 Trazodone 05/14/2025 Medications estradioL (VAGIFEM) 10 mcg Tab INSERT 1 TABLET VAGINALLY TWO TIMES PER WEEK Active Encounters Date Type Department Care Team Description 05/14/2025 11:40 AM EDT Office Visit [facility] at [address] [address] Coco Puri, JEANINE Pain of left mastoid (Primary Dx) from Last 3 Months Social History Tobacco Use Types Packs/Day Years [...] on file Sexual Orientation Not on file Last Filed Vital Signs Vital Sign Reading [...] Mass Index 26.61 05/14/2025 11:44 AM EDT Plan of Treatment Health Maintenance Due Date Last Done Comments LIPID PANEL 1965 DEPRESSION SCREENING 1976 HEPATITIS C SCREENING 01/30/1982 HIV ONE-TIME SCREENING (18-65 YEARS) 01/30/1982 PAP SMEAR 01/30/1985 SMOKING STATUS SCREENING (Once After 26 Yrs) 01/30/1990 SCREENING FOR DIABETES 01/30/1999 MAMMOGRAM 2004 COLOGUARD 01/30/2009 COLONOSCOPY 01/30/2009 COLORECTAL CANCER SCREENING 01/30/2009 FIT TEST 01/30/2009 FOBT 01/30/2009 SIGMOIDOSCOPY 01/30/2009 VIRTUAL COLONOSCOPY 01/30/2009 PNEUMOCOCCAL VACCINES (50+ years) (1 of 1 - PCV) 01/30/2014 INFLUENZA VACCINE (#1) 2025 , 06/04/2023, 06/08/2022, Additional history exists Adult Td,Tdap Booster 01/25/2034 01/26/2024 RSV VACCINE Completed 04/20/2024 COVID-19 VACCINE Completed 05/14/2024, 07/2023, 05/10/2022, Additional history exists ZOSTER VACCINES Completed 09/30/2024, 04/20/2024 HEPATITIS A VACCINES Aged Out No long er eligible based on patient's age to complete this topic HIB VACCINES Aged Out No longer eligi ble based on patient's age to complete this topic MENINGOCOCCAL VACCINES (ACWY) Aged Out No longer eligible based on patient's age to complete this topic MENINGOCOCCAL VACCINES (B) Aged Out N o longer eligible based on patient's age to complete this topic Medical Devices Not on file Insurance HMO HMO HMO HMO O [facility] HMO Care Teams Documentation Analyst Relationship Specialty Start Date End Date Vamshi Subramanian MD [address] [place] [id number] PCP - General Medical Oncology 05/14/25 Additional Source Comments The information contained in this document represents components of the legal health record. It is not the complete legal health record.[facility]
[2025-05-14 17:18] VITALS: BP 127/67; PULSE 69; RESP 16; TEMP 36.7; O2SAT 98
--- NOTE | 2025-05-14 17:19 | PC.NURSE ---
patient a&ox3, vss, pt c/o 12/31 lt ear/cheek pain and headache, iv inserted, labs previously drawn, pt awaiting CT scan, plan of care ongoing
[2025-05-14] MEDS: iohexoL 350 MG/ML 100 ML INFUS..BTL IV (17:55)
[2025-05-14 19:59] VITALS: BP 138/87; PULSE 67; RESP 16; TEMP 36.3; O2SAT 99
[2025-05-14 20:00] VITALS: BP 138/87; PULSE 67; RESP 16; TEMP 36.3; O2SAT 99
== END 2025-05-14 20:01 | disposition home or self-care (01) ==
PROVIDERS: Registered Nurse Emergency; Emergency Provider Student in an Organized Health Care Education/Training Program; PCP Internal Medicine Medical Oncology
DX: H92.02 Otalgia, left ear (principal); H70.92 Unspecified mastoiditis, left ear; Z79.899 Other long term (current) drug therapy
CPT/HCPCS: 36415; 70487; 80053; 85025; 99284; Q9967

== ENCOUNTER → 2025-05-14 16:30 | Outpatient (BNV) | payer OTHER, SELFPAY | PROVIDERS: Emergency Provider Student in an Organized Health Care Education/Training Program; PCP Internal Medicine Medical Oncology; Visit Provider Radiology Neuroradiology | DX: M26.643 Arthritis of bilateral temporomandibular joint (principal) | CPT/HCPCS: 70487 ==

== ENCOUNTER 2025-07-11 16:50 | Outpatient (REF) | payer OTHER, SELFPAY ==
--- OUTSIDE RECORDS SUMMARY | 2024-05-27 10:33 | XMS_ITS ---
Author Organization Vamshi Subramanian III, MD Address [address] [address] Care Team Providers Care Insurance Agency Manager Name Role Phone Dr. Vamshi Subramanian III Primary Care Provider REASON FOR VISIT Refill request Medications Medication SIG (Take, Route, Fr equency, Duration) Notes Start Date End Date Status Estradiol 10 MCG 1 tablet Vaginal Two times a Week for 90 days Active Social History Sex Assigned At : Social History Observation Description Sex Assigned At Female Encounters Encounter Location Date Provider Diagnosis Vamshi Subramanian III, MD [address] [place] [address] [place] [phone] 05/27/2024 Vamshi Subramanian Plan Of Treatment Medication Medication Name Sig Start Date Stop Date Notes Estradiol 10 MCG 1 tablet Vaginal Two times a Week for 90 days Next Appt Details Provider Name:Vamshi Subramanian , 08/02/2025 04:15:00 PM, [address] [place] [address] [place], [address], Provider Name:Vamshi Subramanian , 02/02/2026 04:00:00 PM, [address] [place] [address] [place], [address], Progress Notes * Vania LEVYOB:1965 (59 yo F)Acc No.[id number]:05/27/2024 Patient: Chela CLEMENTS :1965 A ge:59 Y S ex:Female Address:[address] [place] [id number] * Refills Refill Estradiol Tablet, 10 MCG, Vaginal, 24, 1 tablet, Two times a Week, 90 days, Refills=3 Subjective: * Chief Complaints: * R efill request * Medical History: * Surgical History: * Hospitalization/Major Diagno stic Procedure: * Medications: Objective: * Vitals: * Physical Examination: Assessment: Plan: * Treatment: * Procedure Codes: * true * Date: Generated for Rad em/Julian/Hemantitting on: 09/11/2024 01:29 PM EST
--- OUTSIDE RECORDS SUMMARY | 2024-06-21 12:15 | XMS_ITS ---
Author Organization Vamshi Subramanian III, MD Address [address] [place] [address] Care Team Providers Care President Finance Company Name Role Phone Dr. Vamshi Subramanian III Primary Care Provider Allergies Allergen (clinical drug ingredient) Drug/Non Drug Allergy documented on EMR Reaction Allergy Type Onset Date Status paroxetine Paxil Unknown Drug Allergy Active Erythrocin Unknown Drug Allergy Active Effexor Unknown Drug Allergy Active duloxetine Cymbalta Unknown Drug Allergy Active Livid (uncoded) Unknown Allergy Acti ve colophon (uncoded) Unknown Allergy A ctive Adhesive Unknown Allergy Active Dotarem anaphylaxis Drug Allergy Activ e trazodone Trazodone HCl Unknown Drug Allergy Act john paul Sulfur Unknown Drug Allergy Active fluoxetine Prozac Unknown Drug Allergy Active REASON FOR VISIT Follow up Medications Medication SIG (Take, Route, Frequency, Duration) Notes Start Date End Date Status valACYclovir HCl 500 MG TAKE 1 TABLET BY MOUTH EVERY DAY Oral Active EPINEPHrine 0.3 MG/0.3ML INJECT0.3 MG INTRAMUSCULARLY FOR ALLERGIC REACTIONS, CALL 911 SEEK MEDICAL ATTENTION. MAY REPEAT WITH A NEW PEN IF NECESSARY. Injection Active ProAir HFA 108 (90 Base) MCG/ACT 2 puffs prn Inhalation every 4 hrs 02/14/2020 Active Advil 200 MG 1 tablet as needed O rally four times a day Active Estradiol 10 MCG 1 tablet Vaginal Two times a Week Active Social History Tobacco Use: Social History Observation Description Date Details (start date - stop date) Never Smoker NA - NA Sex Assigned At : Social History Observation Description Sex Assigned At Female Tobacco Use/Smoking Question Answer Notes Patient is a nonsmoker Additional Findings: Tobacco Non-User Aggressive non-smoker Encounters Encounter Location Date Provider Diagnosis Vamshi Subramanian III, MD [address] [place] [address] [address] [place] [address] 06/21/2024 Vamshi Subramanian Asthma J45.909 Assessments Encounter Date Diagnosis (ICD Code) Assessment Notes Treatment Notes Treatment Clinical Notes 06/21/2024 Asthma (ICD-10 - J45.909) She uses an inhaler occasionally but asthma has not been a significant problem in her life since her last visit. She has not been overly troubled in the pollen season. Plan Of Treatment Medication Medication Name Sig Start Date Stop Date Notes valACYclovir HCl 500 MG TAKE 1 TABLET BY MOUTH EVERY DAY Oral EPINEPHrine 0.3 MG/0.3ML INJECT0.3 MG IN TRAMUSCULARLY FOR ALLERGIC REACTIONS, CALL 911 SEEK MEDICAL ATTENTION. MAY REPEAT WITH A NEW PEN IF NECESSARY. Injection ProAir HFA 108 (90 Base) MCG/ACT 2 puffs prn Inhalation every 4 hrs 02/14/2020 Advil 200 MG 1 tablet as needed O rally four times a day Estradiol 10 MCG 1 tablet Vaginal Two times a Week Next Appt Details Provider Name:Vamshi Balderrama Subramanian , 08/02/2025 04:15:00 PM, [address] [place] [address] [address], [place], [phone], Provider Name:Vamshi Balderrama Marilynn , 02/02/2026 04:00:00 PM, [address] [place] [address] [address], [place], [address], Progress Notes * Vania LEVYOB:1965 (60 yo F)Acc No.[id number]:06/21/2024 Progress Notes Patient: Chela CLEMENTS Provider: Priya Subramanian MD :1965 A ge:59 Y S ex:Female Date:06/21/2024 Address:[address] [place] [id number] Subjective: * Chief Complaints: * 1 . Follow up. * HPI: C OVID-19 Screening: Questions H ave you had any new onset fever, chills, cough, congestion, sore throat, shortness of breath, muscle aches? N o H ave you been exposed to the virus within the last 10 days? N o H ave you travelled internationally in the last 10 days? N o H ave you been exposed to COVID-19 in the past? N o * ROS: G eneral/Constitutional: pain o nly normal aches and pains. C hills d enies.?Fatigue a dmits. F ever d enies. E NT: Decreased hearing d enies. R espiratory: Cough d enies. C ardiovascular: Chest pain with exertion d enies. D yspnea on exertion?denies. S hortness of breath d enies. G astrointestinal: Constipation d enies. D ecreased appetite d enies.?Diarrhea d enies. H eartburn d enies. N ausea d enies. R ectal bleeding?denies. V omiting d enies. H ematology: bruising d enies. p etechiae d enies. S wollen glands n one have been noted. G enitourinary: Frequent urination d enies. M usculoskeletal: Muscle aches d enies. P ainful joints d enies. S ciatica d enies. W eakness d enies. S kin: Itching d enies. R samia d enies. S kin lesion(s)?denies. N eurologic: Difficulty speaking d enies. D izziness d enies.?Headache d enies. L ow back pain d enies. P sychiatric: Depressed mood d enies. * Medical History: L ast menstrual period 12/2015, Asthma, Allergies. * Surgical History: D enies Past Surgical History. * Hospitalization/Major Diagno stic Procedure: D enies Past Hospitalization. * Family History: F ather: 82 yrs, skin cancer, carotid artery disease/stroke or CT, diagnosed with Cancer, DM, Hyperlipidemia. M other: 81 yrs, stroke, rheumatoid arthritis, dementia, mouth cancer, diagnosed with HTN, Cancer. S pouse: alive. 3 brother(s) - healthy. 1 son(s) - healthy. . Two of her brothers have hypertension and two of her brothers have hyperlipidemia. Her father recently at the [place] [facility] after a long illness. She is not aware of any family history of mental illness or substance use disorder or addiction. * Social History: T obacco Use: T obacco Use/Smoking Mel fischer is a n onsmoker A dditional Findings: Tobacco Non-User A ggressive non-smoker S he was born in [place], [place]. She has been to Yann for 28 years and had one son Yann. 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 * Medications: T aking ProAir HFA 108 (90 Base) MCG/ACT Aerosol Solution 2 puffs prn Inhalation every 4 hrs , Taking Advil 200 MG Tablet 1 tablet as needed Orally four times a day , Taking valACYclovir HCl 500 MG Tablet TAKE 1 TABLET BY MOUTH EVERY DAY Oral , Taking EPINEPHrine 0.3 MG/0.3ML Solution Auto-injector INJECT0.3 MG INTRAMUSCULARLY FOR ALLERGIC REACTIONS, CALL 911 SEEK MEDICAL ATTENTION. MAY REPEAT WITH A NEW PEN IF NECESSARY. Injection , Taking Estradiol 10 MCG Tablet 1 tablet Vaginal Two times a Week , Medication List reviewed and reconciled with the patient * Allergies: E rythrocin, Sulfur, Prozac, Effexor, Cymbalta, Paxil, Trazodone HCl, Adhesive, colophon, Livid, Dotarem: anaphylaxis. Objective: * Vitals: * Examination: G eneral Examination: GENERAL APPEARANCE: p leasant, well nourished, well developed, in no acute distress, calm and relaxed. HEAD: a traumatic, normocephalic. EYES: e kaleb, perrla, anicteric, conjugate. EARS: n ormal. NOSE: s eptum intact. ORAL CAVITY: n ormal, unremarkable. NECK/THYROID: n o jugular venous distention, no carotid bruit, thyroid normal. LYMPH NODES: n o enlarged lymph nodes,spleen normal. SKIN: n o suspicious lesions, anicteric. HEART: n o clicks, gallops, murmurs, or rubs, regular rhythm, S1, S2 normal, no s3, or vascular bruits. LUNGS: c lear to auscultation . BREASTS: no masses palpable bilaterally. ABDOMEN: b owel sounds normal, no ascites, no organomegaly, no mass. RECTAL EXAM: n ot examined. MUSCULOSKELETAL: e xtremities unremarkable, no clubbing, cyanosis or edema. PERIPHERAL PULSES: n ormal. NEUROLOGIC: a lert and oriented, cranial nerves 2-12 grossly intact, deep tendon reflexes 2+ symmetrical, motor strength normal upper and lower extremities, sensory exam intact. PSYCH: a lert, oriented. Assessment: * Assessment: 1. Cristy perez - J45.909 N otes :She uses an inhaler occasionally but asthma has not been a significant problem in her life since her last visit. She has not been overly troubled in the pollen season. Plan: * Treatment: 2. O thers Continue Estradiol Tablet, 10 MCG, 1 tablet, Vaginal, Two times a Week; C ontinue ProAir HFA Aerosol Solution, 108 (90 Base) MCG/ACT, 2 puffs prn, Inhalation, every 4 hrs; C ontinue Advil Tablet, 200 MG, 1 tablet as needed, Orally, four times a day. * Images: * The named appointment provid er may or may not be the originator of this progress note, and it is not deemed complete until electronically signed by the appointment provider. Sign off status: Pending * Provider: Priya Subramanian MD Date: Generated for Rad em/Julian/Ginnysmitting on: 09/11/2024 01:30 PM EST History and Physical Notes * HPI (History of Present Illness) Category Sub-Category Detail Notes COVID-19 Screening Questions Have you had any new onset fever, chills, cough, congestion, sore throat, shortness of breath, muscle aches?: No Have you been exposed to the virus withi n the last 10 days?: No Have you travelled internationally in e last 10 days?: No Have you been exposed to COVID-19 in the past?: No Examination Category Sub-Category Detail Notes General Examination GENERAL APPEARANCE: pleasant , well nourished, well developed, in no acute distress, calm and relaxed HEAD: atraumatic, normocep halic EYES: eomi, perrla, anicte linda, conjugate EARS: normal NOSE: septum intact NECK/THYROID: no jugular venous di stention, no carotid bruit, thyroid normal HEART: no clicks, gallops, murmurs, or rubs, regular rhythm, S1, S2 normal, no s3, or vascular bruits LUNGS: clear to auscultatio n ABDOMEN: bowel sounds normal, no ascites, no organomegaly, no mass NEUROLOGIC: alert and oriented, cranial nerves 2-12 grossly intact, deep tendon reflexes 2+ symmetrical, motor strength normal upper and lower extremities, sensory exam intact SKIN: no suspicious lesion s, anicteric PERIPHERAL PULSES: normal BREASTS: no masses palpable b ilaterally MUSCULOSKELETAL: extremities unremark able, no clubbing, cyanosis or edema LYMPH NODES: no enlarged lymph no miguel angel,spleen normal RECTAL EXAM: not examined PSYCH: alert, oriented ORAL CAVITY: normal, unremarkable
--- OUTSIDE RECORDS SUMMARY | 2024-07-05 10:30 | XMS_ITS ---
Author Organization Vamshi Subramanian III, MD Address [address] [address] Care Team Providers Care Customer Experience Retail Clerk Name Role Phone Dr. Vamshi Subramanian III Primary Care Provider [phone] Allergies Allergen (clinical drug ingredient) Drug/Non Drug [...] Unknown Drug Allergy Active REASON FOR VISIT Partial loss of vision left eye, Allergies, Overweight, As Medications Medication SIG (Take, Route, Frequency, Duration) Notes Start Date End Date Status Advil 200 MG 1 tablet as needed O rally four times a day Active valACYclovir HCl 500 MG TAKE 1 TABLET BY MOUTH EVERY DAY Oral Active EPINEPHrine 0.3 MG/0.3ML INJECT0.3 MG INTRAMUSCULARLY FOR ALLERGIC REACTIONS, CALL 911 SEEK MEDICAL ATTENTION. MAY REPEAT WITH A NEW PEN IF NECESSARY. Injection Active Estradiol 10 MCG 1 tablet Vaginal Two times a Week Active ProAir HFA 108 (90 Base) MCG/ACT 2 puffs prn Inhalation every 4 hrs 02/14/2020 Active Social History Tobacco Use: Social History Observation Description Date Details (start date - stop date) Never Smoker NA - NA Sex Assigned At : Social History Observation Description Sex Assigned At Female Tobacco Use/Smoking Question Answer Notes Patient is a nonsmoker Additional Findings: Tobacco Non-User Aggressive non-smoker Vital Signs Temperature 97.0 degrees Fahrenheit 07/05/20 24 Blood pressure systolic 111 mm Hg 07/05/20 24 Blood pressure diastolic 73 mm Hg 024 Heart Rate 63 /min 07/05/2024 Height 65 in 07/05/2024 Weight 156 lbs 07/05/2024 BMI 25.96 kg/m2 07/05/2024 Encounters Encounter Location Date Provider Diagnosis Vamshi Subramanian III, MD [address] [place] [address] [place] [address] 07/05/2024 Vamshi Subramanian Asthma J45.909 ; Overweight E66.3 ; Osteoarthritis M19.90 ; Environmental allergies Z91.09 ; Recurrent dislocation, right shoulder M24.411 and Epiretinal membrane (ERM) of left eye H35.372 Assessments Encounter Date Diagnosis (ICD Code) Assessment Notes Treat ment Notes Treatment Clinical Notes 07/05/2024 Asthma (ICD-10 - J45.909) She uses an inhaler occasionally but asthma has not been a significant problem in her life since her last visit. She has not been overly troubled in the pollen season. 07/05/2024 Overweight (ICD-10 - E66.3) She is very slightly overweight. We discussed diet and nutrition. She will try to lose weight at a rate of one half of a pound per week. 07/05/2024 Osteoarthritis (ICD-10 - M19.90) Of arthritic discomfort is mild and intermittent. It was not bothering her today. She will use acetaminophen and ibuprofen. 07/05/2024 Environmental allergies (ICD-10 - Z91.09) She is using an ttzb-lfo-kyqidof decongestant to treat her allergies with success. No additional medication seems needed. I recommended a nondrowsy antihistamine and Flonase as she needs it. 07/05/2024 Recurrent dislocation, right shoulder (ICD-10 - M24.411) The area has been repaired and she is very happy that she is now pain-free. 07/05/2024 Epiretinal membrane (ERM) of left eye (ICD-10 - H35.372) She will follow-up with the beer still runner compounder as scheduled. She will notify the beer still runner compounder at once if her vision changes. Plan Of Treatment Medication Medication Name Sig Start Date Stop Date Notes Advil 200 MG 1 tablet as needed O rally four times a day valACYclovir HCl 500 MG TAKE 1 TABLET BY MOUTH EVERY DAY Oral EPINEPHrine 0.3 MG/0.3ML INJECT0.3 MG IN TRAMUSCULARLY FOR ALLERGIC REACTIONS, CALL 911 SEEK MEDICAL ATTENTION. MAY REPEAT WITH A NEW PEN IF NECESSARY. Injection Estradiol 10 MCG 1 tablet Vaginal Two times a Week ProAir HFA 108 (90 Base) MCG/ACT 2 puffs prn Inhalation every 4 hrs 02/14/2020 Next Appt Details Follow Up: as scheduled, Bindu son: annual exam review labs Provider Name:Vamshi Subramanian , 08/02/2025 04:15:00 PM, [address] [place] [address] [address], [place], [address], Provider Name:Vamshi Subramanian , 02/02/2026 04:00:00 PM, [address] [place] [address] [address], [place], [address], Progress Notes * CAM VanaiOB:1965 (59 yo F)Acc No.[id number]:07/05/2024 Progress Notes Patient: Chela CLEMENTS Provider: Priya Subramanian MD :1965 A ge:59 Y S ex:Female Date:07/05/2024 Address:[address] [place] [id number] Subjective: * Chief Complaints: * P artial loss of vision left eyeAllergiesOverweightAs * HPI: C OVID-19 Screening: Questions H ave you experienced fever, chills, cough, sore throat, shortness of breath, difficulty breathing, muscle aches, loss of taste or smell? N o H ave you been exposed to the virus within the last 10 days? N o H ave you travelled internationally in the last 10 days? N o H ave you been exposed to COVID-19 in the past? N o * : The patient, a 59-year-old female, presented with a condition known as epiretinal membrane syndrome in her left eye. This condition has caused her vision to be diminished, with the patient describing it as looking through a screen or fogged glasses. The symptoms have remained constant, with no noted progression or regression. The patient also reported experiencing floaters in her eye, which have not improved over time. 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 The patient also reported having had left knee pain and right second toe pain in the past, but these issues have since resolved. The patient also has allergies, which she manages with a daily allergy pill, and asthma, which only presents when she goes running. She manages this with an inhaler taken before or after running. * ROS: G eneral/Constitutional: pain o nly [...] have been noted. G enitourinary: Frequent urination a t night. M usculoskeletal: Muscle aches d enies. P ainful joints d enies. S ciatica d enies. W eakness d enies. S kin: Itching d enies. R samia d enies. S kin lesion(s)?denies. N eurologic: Difficulty speaking d enies. D izziness d enies.?Headache d enies. L ow back pain d enies. P sychiatric: Depressed mood d enies. * Medical History: * Surgical History: D enies Past Surgical History * Hospitalization/Major Diagno stic Procedure: D enies Past Hospitalization * Family History: F ather: 82 yrs, skin cancer, carotid artery disease/stroke or [place], diagnosed with Cancer, DM, Hyperlipidemia. M other: 81 yrs, stroke, rheumatoid arthritis, dementia, mouth cancer, diagnosed with Cancer, HTN. S pouse: alive. 3 brother(s) - healthy. 1 son(s) - healthy. . Two of her brothers have hypertension and two of her brothers have hyperlipidemia. Her father recently at the [place] [facility] home after a long illness. She is not aware of any family history of mental illness or substance use disorder or addiction. * Social History: T obacco Use: T obacco Use/Smoking P amado is a n onsmoker A dditional Findings: Tobacco Non-User A ggressive non-smoker S he was born in [place], [place]. She has been to Yann for 28 years and had one son Yann. 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 * Medications: T akingEstradiol 10 MCG Tablet 1 tablet Vaginal Two times a Week ProAir HFA 108 (90 Base) MCG/ACT Aerosol Solution 2 puffs prn Inhalation every 4 hrs Advil 200 MG Tablet 1 tablet as needed Orally four times a day valACYclovir HCl 500 MG Tablet TAKE 1 TABLET BY MOUTH EVERY DAY Oral when has cold sore EPINEPHrine 0.3 MG/0.3ML Solution Auto-injector INJECT0.3 MG INTRAMUSCULARLY FOR ALLERGIC REACTIONS, CALL 911 SEEK MEDICAL ATTENTION. MAY REPEAT WITH A NEW PEN IF NECESSARY. Injection Medication List reviewed and reconciled with the patientTaking Estradiol 10 MCG Tablet 1 tablet Vaginal Two times a Week Taking ProAir HFA 108 (90 Base) MCG/ACT Aerosol Solution 2 puffs prn Inhalation every 4 hrs Taking Advil 200 MG Tablet 1 tablet as needed Orally four times a day Taking valACYclovir HCl 500 MG Tablet TAKE 1 TABLET BY MOUTH EVERY DAY Oral when has cold sore Taking EPINEPHrine 0.3 MG/0.3ML Solution Auto- injector INJECT0.3 MG INTRAMUSCULARLY FOR ALLERGIC REACTIONS, CALL 911 SEEK MEDICAL ATTENTION. MAY REPEAT WITH A NEW PEN IF NECESSARY. Injection Medication List reviewed and reconciled with the patient * Allergies: E rythrocinSulfurProzacEffexorCymbaltaPaxilTrazodone HClAdhesivecolophonLividDotarem: anaphylaxisno[Allergies Verified] Objective: * Vitals: H t: 65 , Wt: 156, BMI:25.96, BP: 111/73, HR: 63, Temp: 97.0, Wt-k.76. * Examination: G eneral Examination: GENERAL APPEARANCE: p katlin, well nourished, well developed, in no acute distress, calm and relaxed, overweight, woman. HEAD: a traumatic, normocephalic. EYES: e kaleb, perrla, anicteric, conjugate, Mild partial visual loss, left eye. EARS: n ormal. NOSE: s eptum intact. ORAL CAVITY: n ormal, unremarkable. NECK/THYROID: n o jugular venous distention, no carotid bruit, thyroid normal. LYMPH NODES: n o enlarged lymph nodes,spleen normal. SKIN: n o suspicious lesions, anicteric. HEART: n o clicks, gallops, murmurs, or rubs, regular rhythm, S1, S2 normal, no s3, or vascular bruits. LUNGS: c lear to auscultation . BREASTS: Not examined. ABDOMEN: b owel sounds normal, no ascites, no organomegaly, no mass, overweight. RECTAL EXAM: n ot examined. MUSCULOSKELETAL: e xtremities unremarkable, no clubbing, cyanosis or edema. PERIPHERAL PULSES: n ormal. NEUROLOGIC: a lert and oriented, cranial nerves 2-12 grossly intact, deep tendon reflexes 2+ symmetrical, motor strength normal upper and lower extremities, sensory exam intact. PSYCH: a lert, oriented. - : u ndefined. Assessment: * Assessment: 1. A sthma - J45.909 (Primary) N otes :She uses an inhaler occasionally but asthma has not been a significant problem in her life since her last visit. She has not been overly troubled in the pollen season. 2 . O verweight - E66.3 N otes :She is very slightly overweight. We discussed diet and nutrition. She will try to lose weight at a rate of one half of a pound per week. 3 . O steoarthritis - M19.90 N otes :Of arthritic discomfort is mild and intermittent. It was not bothering her today. She will use acetaminophen and ibuprofen. 4 . E nvironmental allergies - Z91.09 N otes :She is using an aphw-zjp-rligeme decongestant to treat her allergies with success. No additional medication seems needed. I recommended a nondrowsy antihistamine and Flonase as she needs it. 5 . R ecurrent dislocation, right shoulder - M24.411 N otes :The area has been repaired and she is very happy that she is now pain- free. 6 . E piretinal membrane (ERM) of left eye - H35.372 N otes :She will follow-up with the beer still runner compounder as scheduled. She will notify the beer still runner compounder at once if her vision changes. Plan: * Treatment: 2. O verweight L AB: PROFILE, FASTING (COMPREHENSIVE METABOLIC) L AB: CBC w DIFF L AB: Lipid Panel 3. O steoarthritis L AB: PROFILE, FASTING (COMPREHENSIVE METABOLIC) L AB: CBC w DIFF L AB: Lipid Panel 4. O thers Continue Estradiol Tablet, 10 MCG, 1 tablet, Vaginal, Two times a Week; C ontinue ProAir HFA Aerosol Solution, 108 (90 Base) MCG/ACT, 2 puffs prn, Inhalation, every 4 hrs; C ontinue Advil Tablet, 200 MG, 1 tablet as needed, Orally, four times a day. * Procedure Codes: * Preventive Medicine: Counseling: C are goal follow-up plan: Counseling for abnormal BMI given Y es Above Normal BMI Follow-up D ietary management education, guidance, and counseling, Dietary needs education * Follow Up: a s scheduled (Reason: annual exam review labs) * Images: * Sign off status: Completed true * Provider: Priya Subramanian MD Date: 09/04/2023 Generated for Rad em/Julian/eTransmitting on: 09/11/2024 01:30 PM EST History and [...] developed, in no acute distress, calm and relaxed, overweight, woman HEAD: atraumatic, normocep halic EYES: eomi, perrla, anicte linda, conjugate, Mild partial visual loss, left eye EARS: normal NOSE: septum intact NECK/THYROID: no jugular venous di stention, no carotid bruit, thyroid normal HEART: no clicks, gallops, murmurs, or rubs, regular rhythm, S1, S2 normal, no s3, or vascular bruits LUNGS: clear to auscultatio n ABDOMEN: bowel sounds normal, no ascites, no organomegaly, no mass, overweight NEUROLOGIC: alert and oriented, cranial nerves 2-12 grossly intact, deep tendon reflexes 2+ symmetrical, motor strength normal upper and lower extremities, sensory exam intact SKIN: no suspicious lesion s, anicteric PERIPHERAL PULSES: normal BREASTS: Not examined MUSCULOSKELETAL: extremities unremark able, no clubbing, cyanosis or edema LYMPH NODES: no enlarged lymph no miguel angel,spleen normal RECTAL EXAM: not examined PSYCH: alert, oriented ORAL CAVITY: normal, unremarkable
--- OUTSIDE RECORDS SUMMARY | 2025-01-31 11:00 | XMS_ITS ---
Author Organization Vamshi Subramanian III, MD Address [address] [place] [address] Care Team Providers Care Commercial Pest Control Technician Name Role Phone Dr. Vamshi Subramanian III Primary Care Provider Allergies Allergen (clinical drug ingredient) Drug/Non Drug Allergy documented on EMR Reaction Allergy Type Onset Date Status paroxetine Paxil Unknown Drug Allergy Active Erythrocin Unknown Drug Allergy Active Effexor Unknown Drug Allergy Active duloxetine Cymbalta Unknown Drug Allergy Active Livid (uncoded) Unknown Allergy Acti ve colophon (uncoded) Unknown Allergy A ctive No Known Food Allergy Unknown Drug Allergy Active Adhesive Unknown Allergy Active Dotarem anaphylaxis Drug Allergy Activ e trazodone Trazodone HCl Unknown Drug Allergy Act john paul Sulfur Unknown Drug Allergy Active fluoxetine Prozac Unknown Drug Allergy Active Results Component Value Reference Range Notes URINE DIP STICK Reviewed date:2025 04:17:57 PM Interpretation: Performing Lab: Notes/Report: SG 1.010 1.005 - 1.025 pH 6.5 5.0 - 9.0 HECTOR Negative Negative - NIT Negative Negative - PRO 15 Negative - Trace GLU Negative Negative - KET Negative Negative - UBG 0.2 0.1 - 1.8 RODOLFO Negative 0.2 - 1.3 BLD Negative Negative - Menstrating No REASON FOR VISIT Annual Exam Medications Medication SIG (Take, Route, Frequency, Duration) Notes Start Date End Date Status EPINEPHrine 0.3 MG/0.3ML INJECT0.3 MG INTRAMUSCULARLY FOR ALLERGIC REACTIONS, CALL 911 SEEK MEDICAL ATTENTION. MAY REPEAT WITH A NEW PEN IF NECESSARY. Injection Active valACYclovir HCl 500 MG TAKE 1 TABLET BY MOUTH EVERY DAY Oral Active Advil 200 MG 1 tablet as needed O rally four times a day Active ProAir HFA 108 (90 Base) MCG/ACT 2 puffs prn Inhalation every 4 hrs for 30 days 02/14/2020 Active Estradiol 10 MCG 1 tablet Vaginal Two times a Week Active Social History Tobacco Use: Social History Observation Description Date Details (start date - stop date) Never Smoker NA - NA Sex Assigned At : Social History Observation Description Sex Assigned At Female Tobacco Control (Standard) Question Answer Notes Tobacco use: Nonsmoker Additional Findings: Tobacco non-user Aggressive nonsmoker AUDIT-C (Standard) Question Answer Notes Did you have a drink containing alcohol in the p ast year? No Points 0 Interpretation Negative Vital Signs Temperature 97.9 degrees Fahrenheit 02/01/20 25 Blood pressure systolic 132 mm Hg 02/01/20 25 Blood pressure diastolic 85 mm Hg 025 Heart Rate 61 /min 2025 Height 65 in 2025 Weight 159 lbs 2025 BMI 26.46 kg/m2 2025 Encounters Encounter Location Date Provider Diagnosis Vamshi Subramanian III, MD [address] [place] [address] [place] [address] 2025 Vamshi Subramanian Asthma J45.909 ; Recurrent dislocation, right shoulder M24.411 ; Atypical chest pain R07.89 ; Environmental allergies Z91.09 and Overweight E66.3 Assessments Encounter Date Diagnosis (ICD Code) Assessment Notes Treat ment Notes Treatment Clinical Notes 2025 Asthma (ICD-10 - J45.909) She uses an inhaler occasionally but asthma has not been a significant problem in her life since her last visit. She has not been overly troubled in the pollen season. 2025 Recurrent dislocation, right shoulder (ICD-10 - M24.411) The area has been repaired and she is very happy that she is now pain-free. 2025 Atypical chest pain (ICD-10 - R07.89) She reports that she has had no further episodes of sharp stabbing chest pain. 2025 Environmental allergies (ICD-10 - Z91.09) She is using an rpqc-inq-zxwnbnh decongestant to treat her allergies with success. No additional medication seems needed. I recommended a nondrowsy antihistamine and Flonase as she needs it. 2025 Overweight (ICD-10 - E66.3) She is very slightly overweight. We discussed diet and nutrition. She will try to lose weight at a rate of one half of a pound per week. Plan Of Treatment Medication Medication Name Sig Start Date Stop Date Notes EPINEPHrine 0.3 MG/0.3ML INJECT0.3 MG IN TRAMUSCULARLY FOR ALLERGIC REACTIONS, CALL 911 SEEK MEDICAL ATTENTION. MAY REPEAT WITH A NEW PEN IF NECESSARY. Injection valACYclovir HCl 500 MG TAKE 1 TABLET BY MOUTH EVERY DAY Oral Advil 200 MG 1 tablet as needed O rally four times a day ProAir HFA 108 (90 Base) MCG/ACT 2 puffs prn Inhalation every 4 hrs for 30 days 02/14/2020 Estradiol 10 MCG 1 tablet Vaginal Two times a Week Next Appt Details Follow Up: 4 Months, Reason: ov Provider Name:Vamshi Subramanian , 08/02/2025 04:15:00 PM, [address] [place] [address] [address], [place], [address], Provider Name:Vamshi Subramanian , 02/02/2026 04:00:00 PM, [address] [place] [address] [address], [place], [address], Progress Notes * Vania LEVYOB:1965 (60 yo F)Acc No.[id number] Progress Notes Patient: Chela CLEMENTS Provider: Priya Subramanian MD :1965 A ge:60 Y S ex:Female Date:2025 Address:[address] [place] [id number] Subjective: * Chief Complaints: * A nnual Exam * HPI: D epression Screening: She comes to the office today for her annual physical examination at the age of 60. Earlier today she received an injection of hydrocortisone in her left shoulder. This has been painful since May when she was told she had calcific tendinitis. She also believes she has bone spurs. She found the recent pollen season to be very tough. She is beginning to feel better. Her outpatient case manager, Dr. Kolb retired from the [facility] last June. She has a new outpatient case manager with an upcoming appointment. PHQ-9 L ittle interest or pleasure in doing things?Not at all F eeling down, depressed, or hopeless N ot at all T rouble falling or staying asleep, or sleeping too much N ot at all F eeling tired or having little energy N ot at all P oor appetite or overeating N ot at all F eeling bad about yourself or that you are a failure, or have let yourself or your family down N ot at all T rouble concentrating on things, such as reading the newspaper or watching television N ot at all M oving or speaking so slowly that other people could have noticed; or the opposite, being so fidgety or restless that you have been moving around a lot more than usual N ot at all T houghts that you would be better off or of hurting yourself in some way N ot at all T otal Score 0 C OVID-19 Screening: Questions H ave you had any new onset fever, chills, cough, congestion, sore throat, shortness of breath, muscle aches? N o S WARREN Questions: SDOH Questions I n the past year have you been worried about losing your housing? Y es I n the past year have you or any family members you live with been unable to get any of the following when it was really needed? Check all that apply: N one * ROS: G eneral/Constitutional: pain R ight shoulder. C hills d enies. F atigue?admits. F ever d enies. E NT: Decreased hearing i n both ears. R espiratory: Cough d enies. C ardiovascular: Chest pain with exertion d enies. D yspnea on exertion?denies. S hortness of breath d enies. G astrointestinal: Constipation o ccasional. D ecreased appetite d enies. D iarrhea d enies. H [place]artburn d enies. N ausea d enies. R ectal bleeding d enies. V omiting d enies. H ematology: bruising d enies. p etechiae d enies. S wollen glands n one have been noted. G enitourinary: Frequent urination d enies. M usculoskeletal: Muscle aches d enies. P ainful joints t hat is mild. S ciatica d enies. W eakness d enies. S kin: Itching d enies. R samia d enies. S kin lesion(s)?denies. N eurologic: Difficulty speaking d enies. D izziness d enies.?Headache d enies. L ow back pain d enies. P sychiatric: Depressed mood w hich is moderate. * Medical History: * Surgical History: T ooth removed 05/2024 * Hospitalization/Major Diagno stic Procedure: N o Hospitalization History. * Family History: F ather: 82 yrs, skin cancer, carotid artery disease/stroke or [place], diagnosed with Cancer, DM, Hyperlipidemia. M other: 81 yrs, stroke, rheumatoid arthritis, dementia, mouth cancer, diagnosed with Cancer, HTN. S pouse: alive. 3 brother(s) - healthy. 1 son(s) - healthy. . Two of her brothers have hypertension and two of her brothers have hyperlipidemia. Her father recently at the [facility] after a long illness. She is not aware of any family history of mental illness or substance use disorder or addiction. * Social History: T obacco Use: T obacco Control (Standard) T obacco use: N onsmoker A dditional Findings: Tobacco non-user A ggressive nonsmoker D rugs/Alcohol: D rugs H ave you used drugs other than those for medical reasons in the past 12 months? N o D rug/Alcohol: A MC-C (Standard) D id you have a drink containing alcohol in the past year? N o P oints 0 I nterpretation N egative S he was born in [place], [place]. She has been to Yann for 28 years and had one son Yann. 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 * Medications: T akingEstradiol 10 MCG Tablet 1 tablet Vaginal Two times a Week ProAir HFA 108 (90 Base) MCG/ACT Aerosol Solution 2 puffs prn Inhalation every 4 hrs Advil 200 MG Tablet 1 tablet as needed Orally four times a day valACYclovir HCl 500 MG Tablet TAKE 1 TABLET BY MOUTH EVERY DAY Oral EPINEPHrine 0.3 MG/0.3ML Solution Auto-injector INJECT0.3 MG [...] 1 TABLET BY MOUTH EVERY DAY Oral Taking EPINEPHrine 0.3 MG/0.3ML Solution Auto-injector INJECT0.3 MG INTRAMUSCULARLY FOR ALLERGIC REACTIONS, CALL 911 SEEK MEDICAL ATTENTION. MAY REPEAT WITH A NEW PEN IF NECESSARY. Injection Medication List reviewed and reconciled with the patient * Allergies: E rythrocinSulfurProzacEffexorCymbaltaPaxilTrazodone HClAdhesivecolophonLividDotarem: anaphylaxisNo Known Food Allergyno[Allergies Verified] Objective: * Vitals: H t: 65 , Wt: 159, BMI:26.46, BP: 132/85, HR: 61, Temp: 97.9, Wt-k.12. * P ast Orders: Lab:Complete Blood Count Aut o Diff * Collection Date 01/19/2025 01/25/2024 02/13/2023 Collection Time 07:05 AM 07:38 AM 10:38 AM Order Date 01/19/2025 01/25/2024 02/13/2023 White Blood Count 5.2 (Ref Range: 4.8-10.8 X10*3/uL) 5.5 (Ref Range: 4.8-10.8 X10*3/uL) 6.3 (Ref Range: 4.8-10.8 X10*3/uL) Red Blood Count 4.63 (Ref Range: 4.20-5.50 X10*6/uL) 4.77 (Ref Range: 4.20-5.50 X10*6/uL) 4.78 (Ref Range: 4.20-5.50 X10*6/uL) Hemoglobin 14.7 (Ref Range: 12.0-16.0 g/dl) 15.1 (Ref Range: 12.0-16.0 g/dl) 14.8 (Ref Range: 12.0-16.0 g/dl) Hematocrit 43.2 (Ref Range: 37.0-47.0 %) 44.4 (Ref Range: 37.0-47.0 %) 43.9 (Ref Range: 37.0-47.0 %) Mean Corpuscular Volume 93.3 (Ref Range: 80.0-98.0 fL) 93.1 (Ref Range: 80.0-98.0 fL) 91.8 (Ref Range: 80.0-98.0 fL) Mean Corpuscular Hemoglobin 31.7 (Ref Range: 27.0-33.0 pg) 31.7 (Ref Range: 27.0-33.0 pg) 31.0 (Ref Range: 27.0-33.0 pg) Mean Corpuscular HGB Conc 34.0 (Ref Range: 31.0-35.0 g/dl) 34.0 (Ref Range: 31.0-35.0 g/dl) 33.7 (Ref Range: 31.0-35.0 g/dl) Red Cell Distribution Width 11.4 (Ref Range: 11.0-16.0 %) 11.7 (Ref Range: 11.0-16.0 %) 11.5 (Ref Range: 11.0-16.0 %) Platelet Count 227 (Ref Range: 160-400 X10*3/uL) 245 (Ref Range: 160-400 X10*3/uL) 262 (Ref Range: 160-400 X10*3/uL) Mean Platelet Volume 9.8 (Ref Range: 9.4-12.3 fL) 9.7 (Ref Range: 9.4-12.3 fL) 10.1 (Ref Range: 9.4-12.3 fL) Neutrophils Percent Auto 57.5 (Ref Range: 45-73 %) 62.0 (Ref Range: 45-73 %) 75.2 H (Ref Range: 45-73 %) Imm Gran Pct Auto 0.4 (Ref Range: 0.0-0.4 %) 0.4 (Ref Range: 0.0-0.4 %) 0.3 (Ref Range: 0.0-0.4 %) Lymphocytes Percent Auto 30.2 (Ref Range: 20-40 %) 24.0 (Ref Range: 20-40 %) 15.9 L (Ref Range: 20-40 %) Monocytes Percent Auto 7.5 (Ref Range: 2-11 %) 7.9 (Ref Range: 2-11 %) 5.2 (Ref Range: 2-11 %) Eosinophils Percent Auto 3.6 (Ref Range: 0-4 %) 4.3 H (Ref Range: 0-4 %) 2.4 (Ref Range: 0-4 %) Basophils Percent Auto 0.8 (Ref Range: 0-2 %) 1.4 (Ref Range: 0-2 %) 1.0 (Ref Range: 0-2 %) NRBC Pct Auto 0.0 (Ref Range: 0.0-0.2 /100WBC) 0.0 (Ref Range: 0.0-0.2 /100WBC) 0.0 (Ref Range: 0.0-0.2 /100WBC) Neutrophils Absolute Auto 3.0 (Ref Range: 2.0-8.3 x10*3/uL) 3.4 (Ref Range: 2.0-8.3 x10*3/uL) 4.7 (Ref Range: 2.0-8.3 x10*3/uL) Imm Gran Abs Auto 0.02 (Ref Range: 0.00-0.03 X10*3/uL) 0.02 (Ref Range: 0.00-0.03 X10*3/uL) 0.02 (Ref Range: 0.00-0.03 X10*3/uL) Lymphocytes Absolute Auto 1.6 (Ref Range: 1.2-4.9 X10*3/uL) 1.3 (Ref Range: 1.2-4.9 X10*3/uL) 1.0 L (Ref Range: 1.2-4.9 X10*3/uL) Monocytes Absolute Auto 0.4 (Ref Range: 0.1-1.2 X10*3/uL) 0.4 (Ref Range: 0.1-1.2 X10*3/uL) 0.3 (Ref Range: 0.1-1.2 X10*3/uL) Eosinophils Absolute Auto 0.2 (Ref Range: 0.0-0.4 X10*3/uL) 0.2 (Ref Range: 0.0-0.4 X10*3/uL) 0.2 (Ref Range: 0.0-0.4 X10*3/uL) Basophils Absolute Auto 0.0 (Ref Range: 0.0-0.2 X10*3/uL) 0.1 (Ref Range: 0.0-0.2 X10*3/uL) 0.1 (Ref Range: 0.0-0.2 X10*3/uL) NRBC Abs Auto 0.000 (Ref Range: 0.0-0.012 X10*3/uL) 0.000 (Ref Range: 0.0-0.012 X10*3/uL) 0.000 (Ref Range: 0.0-0.012 X10*3/uL) * Lab:Luzmaria bass Fast * Collection Date 01/19/2025 01/25/2024 02/13/2023 Collection Time 07:05 AM 07:38 AM 10:38 AM Order Date 01/19/2025 01/25/2024 02/13/2023 Sodium 142 (Ref Range: 135-145 mmol/L) 140 (Ref Range: 135-145 mmol/L) 140 (Ref Range: 135-145 mmol/L) Bilirubin Total 0.8 (Ref Range: 0.0-1.0 mg/dL) 0.9 (Ref Range: 0.0-1.0 mg/dL) 1.1 H (Ref Range: 0.0-1.0 mg/dL) Aspartate Amino Transferase 32 H (Ref Range: 5-31 U/L) 30 (Ref Range: 5-31 U/L) 26 (Ref Range: 5-31 U/L) Alanine Aminotransferase 27 (Ref Range: 0-31 U/L) 22 (Ref Range: 0-31 U/L) 24 (Ref Range: 0-31 U/L) Total Protein 6.6 (Ref Range: 6.5-8.0 g/dL) 6.9 (Ref Range: 6.5-8.0 g/dL) 7.0 (Ref Range: 6.5-8.0 g/dL) Albumin Level 4.1 (Ref Range: 3.5-5.0 g/dL) 4.2 (Ref Range: 3.5-5.0 g/dL) 4.1 (Ref Range: 3.5-5.0 g/dL) Alkaline Phosphatase 80 (Ref Range: 39-117 U/L) 87 (Ref Range: 39-117 U/L) 82 (Ref Range: 39-117 U/L) Potassium 4.3 (Ref Range: 3.3-5.1 mmol/L) 4.2 (Ref Range: 3.3-5.1 mmol/L) 4.0 (Ref Range: 3.3-5.1 mmol/L) Chloride 105 (Ref Range: 96-108 mmol/L) 106 (Ref Range: 96-108 mmol/L) 106 (Ref Range: 96-108 mmol/L) Carbon Dioxide 31 H (Ref Range: 22-29 mmol/L) 28 (Ref Range: 22-29 mmol/L) 28 (Ref Range: 22-29 mmol/L) Anion Gap 10 L (Ref Range: 12-20) 10 L (Ref Range: 12-20) 10 L (Ref Range: 12-20) Blood Urea Nitrogen 21 H (Ref Range: 9-16 mg/dL) 20 H (Ref Range: 9-16 mg/dL) 16 (Ref Range: 9-16 mg/dL) Creatinine 0.81 (Ref Range: 0.5-1.4 mg/dL) 0.85 (Ref Range: 0.5-1.4 mg/dL) 0.85 (Ref Range: 0.5-1.4 mg/dL) Estimated Glomerular Filt Rate > 60 > 60 > 60 Glucose Fasting 88 (Ref Range: 60-99 mg/dL) 93 (Ref Range: 60-99 mg/dL) 91 (Ref Range: 60-99 mg/dL) Calcium 10.0 (Ref Range: 8.4-10.2 mg/dL) 9.6 (Ref Range: 8.4-10.2 mg/dL) 10.1 (Ref Range: 8.4-10.2 mg/dL) * Lab:Lipid Panel * Collection Date 01/19/2025 01/25/2024 02/13/2023 Collection Time 07:05 AM 07:38 AM 10:38 AM Order Date 01/19/2025 01/22/2024 02/13/2023 Triglycerides 62 (Ref Range: <150 mg/dL) 44 (Ref Range: <150 mg/dL) 60 (Ref Range: mg/dL) Cholesterol 204 H (Ref Range: <200 mg/dL) 197 (Ref Range: <200 mg/dL) 199 (Ref Range: mg/dL) LDL Cholesterol Calculated 131 H (Ref Range: <100 mg/dL) 119 H (Ref Range: <100 mg/dL) 118 (Ref Range: mg/dl) HDL Cholesterol 61 (Ref Range: >40 mg/dL) 70 (Ref Range: >40 mg/dL) 69 (Ref Range: mg/dL) * Examination: G eneral Examination: GENERAL APPEARANCE: [...] LUNGS: c lear to auscultation . BREASTS: T o be done at patient request by the outpatient case manager. ABDOMEN: b owel sounds normal, no ascites, no organomegaly, no mass. RECTAL EXAM: n ot examined. MUSCULOSKELETAL: e xtremities unremarkable, no clubbing, cyanosis or edema. PERIPHERAL PULSES: n ormal. NEUROLOGIC: a lert and oriented, cranial nerves 2-12 grossly intact, deep tendon reflexes 2+ symmetrical, motor strength normal upper and lower extremities, sensory exam intact. PSYCH: a lert, oriented. Assessment: * Assessment: 1. R ecurrent dislocation, right shoulder - M24.411 (Primary) N otes :The area has been repaired and she is very happy that she is now pain- free. 2 . A sthma - J45.909 N otes :She uses an inhaler occasionally but asthma has not been a significant problem in her life since her last visit. She has not been overly troubled in the pollen season. 3 . A typical chest pain - R07.89 N otes :She reports that she has had no further episodes of sharp stabbing chest pain. 4 . E nvironmental allergies - Z91.09 N otes :She is using an ujms-wty-zgagncs decongestant to treat her allergies with success. No additional medication seems needed. I recommended a nondrowsy antihistamine and Flonase as she needs it. 5 . O verweight - E66.3 N otes :She is very slightly overweight. We discussed diet and nutrition. She will try to lose weight at a rate of one half of a pound per week. Plan: * Treatment: 2. O thers Continue Estradiol Tablet, 10 MCG, 1 tablet, Vaginal, Two times a Week; C ontinue ProAir HFA Aerosol Solution, 108 (90 Base) MCG/ACT, 2 puffs prn, Inhalation, every 4 hrs, 30 days, 1, Refills 11; Continue Advil Tablet, 200 MG, 1 tablet as needed, Orally, four times a day. * Labs: * L ab: URINE DIP STICK (Collection Date & Time - 2025) Value Reference Range S G 1.010 1.005 - 1.025 * p H 6.5 5.0 - 9.0 * L EU Negative Negative - * N IT Negative Negative - * P RO 15 Negative - Trace * G KATHE Negative Negative - * K ET Negative Negative - * U BG 0.2 0.1 - 1.8 * B IL Negative 0.2 - 1.3 * B LD Negative Negative - * M enstrating No * Procedure Codes: 8 1002 URINE-NO MICRO * Preventive Medicine: Counseling: C are goal follow-up plan: Counseling for abnormal BMI given Y es Above Normal BMI Follow-up D ietary management education, guidance, and counseling, Dietary needs education, Exercise promotion: strength training, Exercise promotion: stretching, Feeding regime, Giving encouragement to exercise, Lifestyle education regarding diet, Nutrition / feeding management, Nutrition therapy, Prescribed activity/exercise education, Prescribed diet education, Prescribed dietary intake, Special diet education, Weight monitoring , Intervention, Order not done: Medical or Other reason not done * Follow Up: 4 Months (Reason: ov) * Images: * Sign off status: Completed true * Provider: Priya Subramanian MD Date: 0 2025 Generated for Rad em/Julian/Ned on: 09/11/2024 01:30 PM EST History and Physical Notes * HPI (History of Present Illness) Category Sub-Category Detail Notes Depression Screening PHQ-9 Little inte rest or pleasure in doing things: Not at all Feeling down, depressed, or hopeless: No t at all Trouble falling or staying asleep, or sl eeping too much: Not at all Feeling tired or having little energy: N ot at all Poor appetite or overeating: Not at all Feeling bad about yourself o r that you are a failure, or have let yourself or your family down: Not at all Trouble concentrating on thi ngs, such as reading the newspaper or watching television: Not at all Moving or speaking so slowly that other people could have noticed; or the opposite, being so fidgety or restless that you have been moving around a lot more than usual: Not at all Thoughts that you would be b rahul off or of hurting yourself in some way: Not at all Total Score: 0 COVID-19 Screening Questions Have you had any new onset fever, chills, cough, congestion, sore throat, shortness of breath, muscle aches?: No SDOH Questions SDOH Questions In the past year have you been worried about losing your housing?: Yes In the past year have you or any family members you live with been unable to get any of the following when it was really needed? Check all that apply:: None Examination Category Sub-Category Detail Notes General Examination [...] lesion s, anicteric PERIPHERAL PULSES: normal BREASTS: To be done at patien t request by the outpatient case manager MUSCULOSKELETAL: extremities unremark able, no clubbing, cyanosis or edema LYMPH NODES: no enlarged lymph no miguel angel,spleen normal RECTAL EXAM: not examined PSYCH: alert, oriented ORAL CAVITY: normal, unremarkable
--- OUTSIDE RECORDS SUMMARY | 2025-03-15 08:00 | XMS_ITS ---
Author Organization Vamshi Subramanian III, MD Address [address] [place] [address] Care Team Providers Care Wood Finisher Apprentice Name Role Phone Dr. Vamshi Subramanian III Primary Care Provider [phone] Allergies Allergen (clinical drug ingredient) Drug/Non Drug [...] Active Results Component Value Reference Range Notes Magnesium Reviewed date:03/25/2025 07:15:05 PM Interpretation: Performing Lab:[address] [address] Notes/Report: Magnesium 2.3 1.6-2.6 mg/dL Free T4 (Free Thyroxine) Reviewed date:03/25/2025 07:15:05 PM Interpretation: Performing Lab:[address] [address] Notes/Report: Free T4 (Free Thyroxine) 0.98 0.71-1.85 ng/dL REASON FOR VISIT Frequent nocturnal rest cramps for one month, Restless legs, Chronic right shoulder dislocation, Asthma Medications Medication SIG (Take, Route, Frequency, Duration) Notes Start Date End Date Status EPINEPHrine 0.3 MG/0.3ML INJECT0.3 MG INTRAMUSCULARLY FOR ALLERGIC REACTIONS, CALL 911 SEEK MEDICAL ATTENTION. MAY REPEAT WITH A NEW PEN IF NECESSARY. Injection Active Advil 200 MG 1 tablet as needed O rally four times a day Active valACYclovir HCl 500 MG TAKE 1 TABLET BY MOUTH EVERY DAY Oral Active Estradiol 10 MCG 1 tablet Vaginal [...] Nonsmoker Additional Findings: Tobacco non-user Aggressive nonsmoker Vital Signs Temperature 97.5 degrees Fahrenheit 03/15/20 25 Blood pressure systolic 135 mm Hg 03/15/20 25 Blood pressure diastolic 91 mm Hg 025 Heart Rate 54 /min 03/15/2025 Height 65 in 03/15/2025 Weight 154 lbs 03/15/2025 BMI 25.62 kg/m2 03/15/2025 Encounters Encounter Location Date Provider Diagnosis Vamshi Subramanian III, MD [address] [place] [address] [place] [address] 03/15/2025 Vamshi Subramanian Asthma J45.909 ; Nocturnal leg cramps G47.62 ; Restless leg syndrome G25.81 ; Overweight E66.3 ; Environmental allergies Z91.09 and Recurrent dislocation, right shoulder M24.411 Assessments Encounter Date Diagnosis (ICD Code) Assessment Notes Treat ment Notes Treatment Clinical Notes 03/15/2025 Asthma (ICD-10 - J45.909) She uses an inhaler occasionally but asthma has not been a significant problem in her life since her last visit. She has not been overly troubled in the pollen season. 03/15/2025 Nocturnal leg cramps (ICD-10 - G47.62) These are present in both legs and occur nightly. Comprehensive blood work has been ordered. I recommended she stop running but continue her other muscle strengthening exercises. Followup in 48 hours to discuss labs. 03/15/2025 Restless leg syndrome (ICD-10 - G25.81) She reports she has restless leg syndrome but also says she has a during the day. This complaint will be investigated more fully. 03/15/2025 Overweight (ICD-10 - E66.3) He is slightly overweight with a BMI slightly over 25. We discussed diet and nutrition and made a plan to lose weight at a rate of one half of a pound per week. 03/15/2025 Environmental allergies (ICD-10 - Z91.09) She is using an bryz-lwu-lmvhskw decongestant to treat her allergies with success. No additional medication seems needed. I recommended a nondrowsy antihistamine and Flonase as she needs it. 03/15/2025 Recurrent dislocation, right shoulder (ICD-10 - M24.411) The area has been repaired and she is very happy that she is now pain-free. Plan Of Treatment Medication Medication Name Sig Start Date Stop Date Notes EPINEPHrine 0.3 MG/0.3ML INJECT0.3 MG IN TRAMUSCULARLY FOR ALLERGIC REACTIONS, CALL 911 SEEK MEDICAL ATTENTION. MAY REPEAT WITH A NEW PEN IF NECESSARY. Injection Advil 200 MG 1 tablet as needed O rally four times a day valACYclovir HCl 500 MG TAKE 1 TABLET BY MOUTH EVERY DAY Oral Estradiol 10 MCG 1 tablet Vaginal Two times a Week ProAir HFA 108 (90 Base) MCG/ACT 2 puffs prn Inhalation every 4 hrs 02/14/2020 Next Appt Details Follow Up: 2 - 3 Days, Reaso n: Telehealth Provider Name:Vamshi Subramanian , 08/02/2025 04:15:00 PM, [address] [place] [address] [address], [place], [address], Provider Name:Vamshi Sburamanian , 02/02/2026 04:00:00 PM, [address] [place] [address] [address], [place], [address], Progress Notes * Vania LEVYOB:1965 (60 yo F)Acc No.[id number]:03/15/2025 Patient: Chela CLEMENTS Provider: Priya Subramanian MD :1965 A ge:60 Y S ex:Female Date:03/15/2025 Address:[address] [place] [id number] Subjective: * Chief Complaints: * F requent nocturnal rest cramps for one monthRestless legsChronic right shoulder dislocationAsthma * HPI: C OVID-19 Screening: She comes in for a same day visit because for one month she has been having nocturnal rest cramps in both legs multiple times a night. She noticed a right upper eyelid twitching as well. She feels generally weak. She has been exercising regularly, including running several miles a day all of that for years.Her physical examination today was unremarkable. Her deep tendon reflexes were hyperactive. Comprehensive blood work including electrolytes and thyroid function tests and calcium and magnesium are ordered and will be done today. Followup telephone call will be made for day 8 hours. She was encouraged to hydrate well. Questions H ave you had any new onset fever, chills, cough, congestion, sore throat, shortness of breath, muscle aches? N o * ROS: G eneral/Constitutional: pain N ew onset nocturnal rest cramps. C hills d enies. F atigue a dmits. F ever d enies. E [...] Muscle aches d enies. P ainful joints R ight shoulder. S ciatica d enies. W eakness d enies. S kin: Itching d enies. R samia d enies. S kin lesion(s)?denies. N eurologic: Difficulty speaking d enies. D izziness d enies.?Headache d enies. L ow back pain d enies. P sychiatric: Depressed mood d enies. * Medical History: * Surgical History: T nohemi removed 05/2024 * Hospitalization/Major Diagno stic Procedure: D enies Past Hospitalization * Family History: F ather: 82 yrs, skin cancer, carotid artery disease/stroke or [place], diagnosed with Cancer, DM, Hyperlipidemia. M other: 81 yrs, stroke, rheumatoid arthritis, dementia, mouth cancer, diagnosed with Cancer, HTN. S pouse: alive. 3 brother(s) - healthy. 1 son(s) - healthy. . Two of her brothers have hypertension and two of her brothers have hyperlipidemia. Her father recently at the [place] [facility] after a long illness. She is not aware of any family history of mental illness or substance use disorder or addiction. * Social History: T obacco Use: T obacco Control (Standard) T obacco use: N onsmoker A dditional Findings: Tobacco non-user A ggressive nonsmoker S he was born in [place], [place]. She has been to Yann for 28 years and had one son Yann. 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 * Medications: T akingEstradiol 10 MCG Tablet [...] * Vitals: H t: 65 , Wt: 154, BMI:25.62, BP: 135/91, HR: 54, Temp: 97.5, Wt-k.85. * Examination: G eneral Examination: GENERAL APPEARANCE: p leasant, well nourished, well developed, in no acute distress, calm and relaxed, overweight, woman. HEAD: a traumatic, normocephalic. EYES: e kaleb, perrla, anicteric, conjugate, No twitching noted. EARS: n ormal. NOSE: s eptum intact. ORAL CAVITY: n ormal, unremarkable. NECK/THYROID: n o jugular venous distention, no carotid bruit, thyroid normal. LYMPH NODES: n o enlarged lymph nodes,spleen normal. SKIN: n o suspicious lesions, anicteric. HEART: n o clicks, gallops, murmurs, or rubs, regular rhythm, S1, S2 normal, no s3, or vascular bruits. LUNGS: c lear to auscultation . BREASTS: N ot examined. ABDOMEN: b owel sounds normal, no ascites, no organomegaly, no mass, overweight. RECTAL EXAM: n ot examined. MUSCULOSKELETAL: e xtremities unremarkable, no clubbing, cyanosis or edema. PERIPHERAL PULSES: n ormal. NEUROLOGIC: a lert and oriented, cranial nerves 2-12 grossly intact, deep tendon reflexes 3+ symmetrical, motor strength normal upper and lower extremities, sensory exam intact. PSYCH: a lert, oriented. Assessment: * Assessment: 1. N octurnal leg cramps - G47.62 (Primary) N otes :These are present in both legs and occur nightly. Comprehensive blood work has been ordered.? I recommended she stop running but continue her other muscle strengthening exercises. Followup in 48 hours to discuss labs. 2 . A sthma - J45.909 N otes :She uses an inhaler occasionally but asthma has not been a significant problem in her life since her last visit. She has not been overly troubled in the pollen season. 3 . R estless leg syndrome - G25.81 N otes :She reports she has restless leg syndrome but also says she has a during the day. This complaint will be investigated more fully. 4 . O verweight - E66.3 N otes :He is slightly overweight with a BMI slightly over 25. We discussed diet and nutrition and made a plan to lose weight at a rate of one half of a pound per week. 5 . E nvironmental allergies - Z91.09 N otes :She is using an fvhg-qlj-zpxguuw decongestant to treat her allergies with success. No additional medication seems needed. I recommended a nondrowsy antihistamine and Flonase as she needs it. 6 . R ecurrent dislocation, right shoulder - M24.411 N otes :The area has been repaired and she is very happy that she is now pain- free. Plan: * Treatment: 2. A sthma Continue valACYclovir HCl Tablet, 500 MG, TAKE 1 TABLET BY MOUTH EVERY DAY, Oral; C ontinue EPINEPHrine Solution Auto-injector, 0.3 MG/0.3ML, INJECT0.3 MG INTRAMUSCULARLY FOR ALLERGIC REACTIONS, CALL 911 SEEK MEDICAL ATTENTION. MAY REPEAT WITH A NEW PEN IF NECESSARY., Injection. 3. R estless leg syndrome L AB: PROFILE, RANDOM (COMPREHENSIVE METABOLIC) L AB: TSH (THYROID STIMULATING HORMONE) L AB: CBC w DIFF L AB: Calcium L AB: Magnesium L AB: Free T4 (Free Thyroxine) 4. O verweight L AB: PROFILE, RANDOM (COMPREHENSIVE METABOLIC) L AB: TSH (THYROID STIMULATING HORMONE) L AB: CBC w DIFF L AB: Calcium L AB: Magnesium L AB: Free T4 (Free Thyroxine) 5. O thers Continue Estradiol Tablet, 10 MCG, [...] Other reason not done * Follow Up: 2 - 3 Days (Reason: Telehealth) * Images: * Sign off status: Completed true * Provider: Priya Subramanian MD Date: 03/15/2025 Generated for Rad em/Julian/eTransmitting on: 09/11/2024 01:30 PM EST History and Physical Notes * HPI (History of Present Illness) Category Sub-Category Detail Notes COVID-19 Screening Questions Have you had any new onset fever, chills, cough, congestion, sore throat, shortness of breath, muscle aches?: No Examination Category Sub-Category Detail Notes General Examination GENERAL APPEARANCE: pleasant , well nourished, well developed, in no acute distress, calm and relaxed, overweight, woman HEAD: atraumatic, normocep halic EYES: eomi, perrla, anicte linda, conjugate, No twitching noted EARS: normal NOSE: septum intact NECK/THYROID: no jugular venous di stention, no carotid bruit, thyroid normal HEART: no clicks, gallops, murmurs, or rubs, regular rhythm, S1, S2 normal, no s3, or vascular bruits LUNGS: clear to auscultatio n ABDOMEN: bowel sounds normal, no ascites, no organomegaly, no mass, overweight NEUROLOGIC: alert and oriented, cranial nerves 2-12 grossly intact, deep tendon reflexes 3+ symmetrical, motor strength normal upper and lower extremities, sensory exam intact SKIN: no suspicious lesion s, anicteric PERIPHERAL PULSES: normal BREASTS: Not examined MUSCULOSKELETAL: extremities unremark able, no clubbing, cyanosis or edema LYMPH NODES: no enlarged lymph no miguel angel,spleen normal RECTAL EXAM: not examined PSYCH: alert, oriented ORAL CAVITY: normal, unremarkable
--- OUTSIDE RECORDS SUMMARY | 2025-03-17 08:45 | XMS_ITS ---
Author Organization Vamshi Subramanian III, MD Address [address] [place] [address] Care Team Providers Care Cage Operator Name Role Phone Dr. Vamshi Subramanian III [...] Unknown Drug Allergy Active REASON FOR VISIT Severe nocturnal rest cramps, Asthma, Dislocation right shoulder, Restless leg syndrome Medications Medication SIG (Take, Route, Frequency, Duration) [...] Findings: Tobacco non-user Aggressive nonsmoker Vital Signs Height 65 in 03/17/2025 Weight 154 lbs 03/17/2025 BMI 25.62 kg/m2 03/17/2025 Encounters Encounter Location Date Provider Diagnosis Vamshi Subramanian III, MD [address] [place] [address] [place] [address] 03/17/2025 Vamshi Subramanian Asthma J45.909 ; Nocturnal leg cramps G47.62 ; Environmental allergies Z91.09 ; Recurrent dislocation, right shoulder M24.411 ; Restless leg syndrome G25.81 and Overweight E66.3 Assessments Encounter Date Diagnosis (ICD Code) Assessment Notes Treat ment Notes Treatment Clinical Notes 03/17/2025 Asthma (ICD-10 - J45.909) She uses an inhaler occasionally but asthma has not been a significant problem in her life since her last visit. She has not been overly troubled in the pollen season. 03/17/2025 Nocturnal leg cramps (ICD-10 - G47.62) These are present in both legs and occur nightly. Comprehensive blood work has been ordered. I recommended she stop running but continue her other muscle strengthening exercises. Blood work iis unremarkable. She will go to physical therapy. We discussed stretches and she will take nnaproxen prior to going to sleep. 03/17/2025 Environmental allergies (ICD-10 - Z91.09) She is using an rlbn-guw-jfwpiqx decongestant to treat her allergies with success. No additional medication seems needed. I recommended a nondrowsy antihistamine and Flonase as she needs it. 03/17/2025 Recurrent dislocation, right shoulder (ICD-10 - M24.411) The area has been repaired and she is very happy that she is now pain-free. 03/17/2025 Restless leg syndrome (ICD-10 - G25.81) She reports she has restless leg syndrome but also says she has a during the day. This complaint will be investigated more fully. 03/17/2025 Overweight (ICD-10 - E66.3) He is slightly [...] hrs 02/14/2020 Next Appt Details Follow Up: As Scheduled, Bindu son: OV Provider Name:Vamshi Subramanian , 08/02/2025 04:15:00 PM, [address] [place] [address] [address] FLORES, [place], [address], Provider Name:Vamshi Subramanian , 02/02/2026 04:00:00 PM, [address] [place] [address] MICHAEL FLORES, [place], [address], Progress Notes * Vania LEVYOB:1965 (60 yo F)Acc No.[id number]:03/17/2025 Patient: Chela CLEMENTS Provider: Priya Subramanian MD :1965 A ge:60 Y S ex:Female Date:03/17/2025 Address:[address] [place], [place] [phone] Subjective: * Chief Complaints: * S evere nocturnal rest crampsAsthmaDislocation right shoulderRestless leg syndrome * HPI: C OVID-19 Screening: On her last visit a few days ago she complained about a new recent onset of nocturnal rest cramps which were severe occurring several times a night. Conference blood work was ordered and reviewed with her today. It was essentially normal. Is going to try to take naproxen 500 mg an hour before bedtime. It is our hope that this will resolve in the near future. If not received physical therapy for education about stretches etc. Questions H ave you had any new onset fever, chills, cough, congestion, sore throat, shortness of breath, muscle aches? N o * : Telehealth L ocation of provider rendering services: { ...} [address] [facility] [address] L ocation of patient: joselyn ortiz listed in demographics for today's visit P atient identification confirmed using: [employer] elehealth method: T elephone only. Patient not visible to care provider. C onsent: P atient verbally consented to treatment, Patient verbally consented to billing insurance company, Patient informed of any privacy concerns related to method of visit T otal time spent with patient (mins) 1 5 * ROS: G eneral/Constitutional: pain N octurnal rest cramps. C hills d enies. F [...] a t night. M usculoskeletal: Muscle aches N octurnal cramps in both legs multiple times a night. P ainful joints d enies. S ciatica [...] yrs, skin cancer, carotid artery disease/stroke or [place], diagnosed with Cancer, DM, Hyperlipidemia. M other: 80 yrs, stroke, rheumatoid arthritis, dementia, mouth cancer, diagnosed with Cancer, HTN. S pouse: alive. 3 brother(s) - healthy. 1 son(s) - healthy. . Two of her brothers have hypertension and two of her brothers have hyperlipidemia. Her father recently at the [place] soldiers home after a long illness. She is not aware of any family history of mental illness or substance use disorder or addiction. * Social History: T obacco Use: T obacco Control (Standard) T obacco use: N onsmoker A dditional Findings: Tobacco non-user A ggressive nonsmoker S he was born in [place], [place]. She has been to Yann for 28 years and had one son Yann. 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 * Medications: T akingEstradiol 10 MCG Tablet [...] Allergyno[Allergies Verified] Objective: * Vitals: H t: 65, Wt: 154, BMI:25.62, Ht-cm: 165.1, Wt-k.85. * P ast Orders: Lab:Complete Blood Count [...] X10*3/uL) 0.000 (Ref Range: 0.0-0.012 X10*3/uL) * Lab:URINE DIP STICK * Collection Date 2025 01/27/2024 01/21/2023 Order Date 2025 01/27/2024 01/21/2023 SG 1.010 (Ref Range: 1.005 - 1.025) 1.015 (Ref Range: 1.005 - 1.025) 1.015 (Ref Range: 1.005 - 1.025) pH 6.5 (Ref Range: 5.0 - 9.0) 5.0 (Ref Range: 5.0 - 9.0) 6.5 (Ref Range: 5.0 - 9.0) HECTOR Negative (Ref Range: Negative -) Negative (Ref Range: Negative -) Negative (Ref Range: Negative -) NIT Negative (Ref Range: Negative -) Negative (Ref Range: Negative -) Negative (Ref Range: Negative -) PRO 15 (Ref Range: Negative - Trace) 15 (Ref Range: Negative - Trace) 15 (Ref Range: Negative - Trace) GLU Negative (Ref Range: Negative -) Negative (Ref Range: Negative -) Negative (Ref Range: Negative -) KET Negative (Ref Range: Negative -) Negative (Ref Range: Negative -) Negative (Ref Range: Negative -) UBG 0.2 (Ref Range: 0.1 - 1.8) 0.2 (Ref Range: 0.1 - 1.8) 0.2 (Ref Range: 0.1 - 1.8) RODOLFO Negative (Ref Range: 0.2 - 1.3) Negative (Ref Range: 0.2 - 1.3) Negative (Ref Range: 0.2 - 1.3) BLD Negative (Ref Range: Negative -) Negative (Ref Range: Negative -) Negative (Ref Range: Negative -) Menstrating No no No * Lab:Lipid Panel * Collection Date 01/19/2025 [...] >40 mg/dL) 69 (Ref Range: mg/dL) * Lab:Comprehensive [place]. Pane l Fast * Collection Date 01/19/2025 01/25/2024 02/13/2023 [...] 8.4-10.2 mg/dL) 10.1 (Ref Range: 8.4-10.2 mg/dL) Assessment: * Assessment: 1. N octurnal leg cramps - G47.62 (Primary) N otes :These are present in both legs and occur nightly. Comprehensive blood work has been ordered. I recommended she stop running but continue her other muscle strengthening exercises. Blood work iis unremarkable. She will go to physical therapy. We discussed stretches and she will take nnaproxen prior to going to sleep. 2 . A sthma - J45.909 N otes :She uses an inhaler occasionally but asthma has not been a significant problem in her life since her last visit. She has not been overly troubled in the pollen season. 3 . E nvironmental allergies - Z91.09 N otes :She is using an lije-suw-wsfvoir decongestant to treat her allergies with success. No additional medication seems needed. I recommended a nondrowsy antihistamine and Flonase as she needs it. 4 . R ecurrent dislocation, right shoulder - M24.411 N otes :The area has been repaired and she is very happy that she is now pain- free. 5 . R estless leg syndrome - G25.81 N otes :She reports she has restless leg syndrome but also says she has a during the day. This complaint will be investigated more fully. 6 . O verweight - E66.3 N otes [...] four times a day. * Procedure Codes: 9 8012 SYNCH AUDIO-ONLY EST SF 10 * Preventive Medicine: Counseling: C are goal [...] Other reason not done * Follow Up: A s Scheduled (Reason: OV) * Images: * Sign off status: Completed true * Provider: Priya Subramanian MD Date: 0 03/17/2025 Generated for Rad em/Julian/Hemantitting on: 09/11/2024 01:29 PM EST History and Physical Notes * HPI (History of Present Illness) Category Sub-Category Detail Notes Telehealth Location of [facility] rendering services:: {...} [address] [place] [address] Location of patient:: address listed in demographics for today's visit Patient identification confirmed using:: Name, Telehealth method:: Telephone only. Ami ent not visible to care provider. Consent:: Patient verbally c onsented to treatment, Patient verbally consented to billing insurance company, Patient informed of any privacy concerns related to method of visit Total time spent with patient (mins): 15 COVID-19 Screening Questions Have you had any new onset fever, chills, cough, congestion, sore throat, shortness of breath, muscle aches?: No
--- OUTSIDE RECORDS SUMMARY | 2025-03-20 08:41 | XMS_ITS ---
Author Organization Vamshi Subramanian III, MD Address [address] [place] [address] Care Team Providers Care Geology Teacher Name Role Phone Dr. Vamshi Subramanian III Primary Care Provider [phone] REASON FOR VISIT told patient to call Social History Sex Assigned At : Social History Observation Description Sex Assigned At Female Encounters Encounter Location Date Provider Diagnosis Vamshi Subramanian III, MD [address] [place] [address] [place] [address] 03/20/2025 Vamshi Subramanian Plan Of Treatment Next Appt Details Provider Name:Vamshi Subramanian , 08/02/2025 04:15:00 PM, [address] [place] [address] [place], [address], Provider Name:Vamshi Subramanian , 02/02/2026 04:00:00 PM, [address] [place] [address] [address] [place], [address], Progress Notes * Vania LEVYOB:1965 (60 yo F)Acc No.[id number]:03/20/2025 Patient: Chela CLEMENTS :1965 A ge:60 Y S ex:Female Address:[address] [place] [phone] * true * Date: Generated for Printi ng/Faxing/eTransmitting on: 09/11/2024 01:30 PM EST
--- OUTSIDE RECORDS SUMMARY | 2025-03-24 09:16 | XMS_ITS ---
Author Organization Vamshi Subramanian III, MD Address [address] [place] [address] Care Team Providers Care Special Procedure Tech Name Role Phone Dr. Vamshi Subramanian III Primary Care Provider [phone] REASON FOR VISIT told patient to call Social History Sex Assigned At : Social History Observation Description Sex Assigned At Female Encounters Encounter Location Date Provider Diagnosis Vamshi Subramanian III, MD [address] [place] [address] [place] [address] 03/24/2025 Vamshi Subramanian Plan Of Treatment Next Appt Details Provider Name:Vamshi Subramanian , 08/02/2025 04:15:00 PM, [address] [place] [address] [place], [address], Provider Name:Vamshi Subramanian , 02/02/2026 04:00:00 PM, [address] [place] [address] [address] [place], [address], Progress Notes * Vania LEVYOB:1965 (60 yo F)Acc No.[id number]:03/24/2025 Patient: Chela CLEMENTS :1965 A ge:60 Y S ex:Female Address:[address] [place] [phone] * true * Date: Generated for Printi ng/Faxing/eTransmitting on: 09/11/2024 01:31 PM EST
--- OUTSIDE RECORDS SUMMARY | 2025-05-31 09:46 | XMS_ITS ---
Author Organization Vamshi Subramanian III, MD Address [address] [place] [address] Care Team Providers Care Public Relations Intern Name Role Phone Dr. Vamshi Subramanian III Primary Care Provider REASON FOR VISIT refill on Estradiol Medications Medication SIG (Take, Route, Fr equency, Duration) Notes Start Date End Date Status Estradiol 10 MCG 1 tablet Vaginal Two times a Week for 90 days Active Social History Sex Assigned At : Social History Observation Description Sex Assigned At Female Encounters Encounter Location Date Provider Diagnosis Vamshi Subramanian III, MD [address] [place] [address] [place] [address] 05/31/2025 Vamshi Subramanian Plan Of Treatment Medication Medication Name Sig Start Date Stop Date Notes Estradiol 10 MCG 1 tablet Vaginal Two times a Week for 90 days Next Appt Details Provider Name:Vamshi Subramanian , 08/02/2025 04:15:00 PM, [address] [place] [address] [place], [address], Provider Name:Vamshi Subramanian , 02/02/2026 04:00:00 PM, [address] [place] [address] [place], [address], Progress Notes * Vania LEVYOB:1965 (60 yo F)Acc No.[id number]:05/31/2025 Patient: Chela CLEMENTS :1965 A ge:60 Y S ex:Female Address:[address] [place] [phone] * Refills Refill Estradiol Tablet, 10 MCG, Vaginal, 24, 1 tablet, Two times a Week, 90 days, Refills=3 * true * Date: Generated for Rad em/Julian/Ned on: 09/11/2024 01:31 PM EST
--- OUTSIDE RECORDS SUMMARY | 2025-07-11 10:30 | XMS_ITS ---
Author Organization Vamshi Subramanian III, MD Address [address] [place] [address] Care Team Providers Care Test Specialist Name Role Phone Dr. Vamshi Subramanian III Primary Care Provider [phone] Allergies Allergen (clinical drug ingredient) Drug/Non Drug [...] Active Results Component Value Reference Range Notes Urinalysis (Not yet reviewed by provider) Interpretation: Performing Lab:[facility], [address] [place] [id number] Notes/Report: Color Urine Yellow Appearance Urine Clear PH 6.0 5.0-9.0 Glucose Urine UA Negative Negative mg/dL Urine Blood Negative Negative Specific [employer] - Urine 1.025 1.005-1.025 Urine Protein Negative Neg-Trace mg/dL Urine Ketones Negative Negative mg/dL Nitrite Urine Negative Negative Leukocyte Esterase Urine Negative Negative URINE DIP STICK Reviewed date:07/11/2025 03:47:21 PM Interpretation: Performing Lab: Notes/Report: SG 1.020 1.005 - 1.025 pH 6.0 5.0 - 9.0 HECTOR 15 + - Negative - NIT Negative Negative - PRO 15 Negative - Trace GLU Negative Negative - KET 5 Negative - UBG 0.2 0.1 - 1.8 RODOLFO 1 0.2 - 1.3 BLD 5-10 Negative - Menstrating No Reason For Referral Reason evaluate and treatme nt for bilateral hands and finger pain R/O rheumatoid arthritis Diagnosis 1 Pain in right hand ( M79.641) Diagnosis 2 Pain in left hand (M 79.642) Diagnosis 3 Pain in right finger (s) (M79.644) Diagnosis 4 Pain in left finger( s) (M79.645) Referral Organization Vamshi Subramanian III, MD Referring Provider First Name Vamshi Referring Provider Last Name Marilynn Referring Provider Speciality Internal M edicine Referred Provider [facility] er, Rheumatology Referred Provider Specialty Rheumatology General Notes Barbra Camila SERVICE TESTER 07/12 11:36:23 AM >ref/demo/progress note faxed to [facility] Referral Priority Routine REASON FOR VISIT Lower back pain relieved with urinating, Arthritis fingers wrists shoulders and knees, Asthma, Restless leg syndrome, Nocturnal rest cramps Medications Medication SIG (Take, Route, Frequency, Duration) Notes Start Date End Date Status valACYclovir HCl 500 MG TAKE 1 TABLET BY MOUTH EVERY DAY Oral Active Advil 200 MG 1 tablet as needed O rally four times a day Active ProAir HFA 108 (90 Base) MCG/ACT 2 puffs prn Inhalation every 4 hrs 02/14/2020 Active Estradiol 10 MCG 1 tablet Vaginal Two times a Week Active EPINEPHrine 0.3 MG/0.3ML INJECT0.3 MG INTRAMUSCULARLY FOR ALLERGIC REACTIONS, CALL 911 SEEK MEDICAL ATTENTION. MAY REPEAT WITH A NEW PEN IF NECESSARY. Injection Active Social History Tobacco Use: Social History Observation Description Date Details (start date - stop date) Never Smoker NA - NA Sex Assigned At : Social History Observation Description Sex Assigned At Female Tobacco Control (Standard) Question Answer Notes Tobacco use: Nonsmoker Additional Findings: Tobacco non-user Aggressive nonsmoker Problems Problem Type SNOMED Code ICD Code Onset Dates Problem Status W/U Status Risk Notes Problem [id number] Acute midline low back pain without sciatica (M54.50) Active confirmed She gives a history that the pain only occurs at night and that it is completely relieved by emptying her bladder. This points to a possible bladder problem. Urinalysis done in the office today showed pyuria proteinuria and microscopic hematuria. A culture is pending as he has an ultrasound of the kidneys ureters and bladder. Vital Signs Temperature 97.3 degrees Fahrenheit 07/11/20 25 Blood pressure systolic 129 mm Hg 07/11/20 25 Blood pressure diastolic 80 mm Hg 025 Heart Rate 62 /min 07/11/2025 Height 65 in 07/11/2025 Weight 162 lbs 07/11/2025 BMI 26.96 kg/m2 07/11/2025 Encounters Encounter Location Date Provider Diagnosis Vamshi Subramanian III, MD [address] [place] [address] [place] [address] 07/11/2025 Vamshi Subramanian Recurrent dislocatio n, right shoulder M24.411 ; Acute midline low back pain without sciatica M54.50 ; Environmental allergies Z91.09 ; Osteoarthritis M19.90 ; Asthma J45.909 and Restless leg syndrome G25.81 Assessments Encounter Date Diagnosis (ICD Code) Assessment Notes Treat ment Notes Treatment Clinical Notes 07/11/2025 Recurrent dislocation, right shoulder (ICD-10 - M24.411) The area has been repaired and she is very happy that she is now pain-free. 07/11/2025 Acute midline low back pain without sciatica (ICD-10 - M54.50) She gives a history that the pain only occurs at night and that it is completely relieved by emptying her bladder. This points to a possible bladder problem. Urinalysis done in the office today showed pyuria proteinuria and microscopic hematuria. A culture is pending as he has an ultrasound of the kidneys ureters and bladder. 07/11/2025 Environmental allergies (ICD-10 - Z91.09) She is using an araj-iwn-mfugnfo decongestant to treat her allergies with success. No additional medication seems needed. I recommended a nondrowsy antihistamine and Flonase as she needs it. 07/11/2025 Osteoarthritis (ICD-10 - M19.90) Of arthritic discomfort is mild and intermittent. It was not bothering her today. She will use acetaminophen and ibuprofen. 07/11/2025 Asthma (ICD-10 - J45.909) She uses an inhaler occasionally but asthma has not been a significant problem in her life since her last visit. She has not been overly troubled in the pollen season. 07/11/2025 Restless leg syndrom e (ICD-10 - G25.81) She reports she has restless leg syndrome but also says she has a during the day. This complaint will be investigated more fully. Plan Of Treatment Medication Medication Name Sig Start Date Stop Date Notes valACYclovir HCl 500 MG TAKE 1 TABLET BY MOUTH EVERY DAY Oral Advil 200 MG 1 tablet as needed O rally four times a day ProAir HFA 108 (90 Base) MCG/ACT 2 puffs prn Inhalation every 4 hrs 02/14/2020 Estradiol 10 MCG 1 tablet Vaginal Two times a Week EPINEPHrine 0.3 MG/0.3ML INJECT0.3 MG IN TRAMUSCULARLY FOR ALLERGIC REACTIONS, CALL 911 SEEK MEDICAL ATTENTION. MAY REPEAT WITH A NEW PEN IF NECESSARY. Injection Pending Test Test Name Order Date URINE CULTURE 07/11/2025 US RENAL BILATERAL 07/11/2025 US URINARY BLADDER 07/11/2025 Urinalysis 07/11/2025 Referrals Referral Date Details 07/11/2025 07/11/2025, evaluate and treatment for bilateral hands and finger pain R/O rheumatoid arthritis, Rheumatology [facility] Next Appt Details Follow Up: as scheduled in seng thomas, Reason: ov review US KUB Provider Name:Vamshi Subramanian , 08/02/2025 04:15:00 PM, [address] [place] [address] [address], [place], [address], Provider Name:Vamshi Subramanian , 02/02/2026 04:00:00 PM, [address] [place] [address] [address], [place], [address], Progress Notes * Vania LEVYOB:1965 (60 yo F)Acc No.[id number]:07/11/2025 Progress Notes Patient: Chela CLEMENTS Provider: Priya Subramanian MD :1965 A ge:60 Y S ex:Female Date:07/11/2025 Address:[address] [place], [place] [phone] Subjective: * Chief Complaints: * L ower back pain relieved with urinatingArthritis fingers wrists shoulders and kneesAsthmaRestless leg syndromeNocturnal rest cramps * HPI: C OVID-19 Screening: Within the last month she developed a low back pain for which she saw a chiropractor. She says the chiropractor moved the pain down from the upper to the lower lumbar spine. This pain occurs only at night and is described as a dull ache. It does not occur during the day.? When she gets up at night to urinate the pain resolves after the bladder is empty. She has noticed odd smell to her urine. She denies any dysuria. Her urine analysis today showed hematuria and pyuria and proteinuria. Urine culture was sent. An ultrasound of her urinary tract was ordered. A follow-up visit was given to her. We discussed a possible urology referral. The relief of the pain by emptying her bladder which occurs only at night suggest a genitourinary etiology. She was told years ago by a practitioner that she had rheumatoid arthritis. Her rheumatoid factor done in 2016 was negative. At her request I have referred her to rheumatology. She complains of arthritic pain in her knees fingers and hands. Questions H ave you had any new onset fever, chills, cough, congestion, sore throat, shortness of breath, muscle aches? N o * ROS: G eneral/Constitutional: pain F ingers, hands, hips and knees, otherwise only normal aches and pains. C hills d enies. F atigue a dmits. F ever d enies.? E NT: Decreased hearing d enies. R [...] yrs, skin cancer, carotid artery disease/stroke or [place], diagnosed with Cancer, DM, Hyperlipidemia. M other: 80 yrs, stroke, rheumatoid arthritis, dementia, mouth cancer, diagnosed with Cancer, HTN. S pouse: alive. 3 brother(s) - healthy. 1 son(s) - healthy. . Two of her brothers have hypertension and two of her brothers have hyperlipidemia. Her father recently at the [facility] after a long illness. She is not aware of any family history of mental illness or substance use disorder or addiction. * Social History: T obacco Use: T obacco Control (Standard) T obacco use: N onsmoker A dditional Findings: Tobacco non-user A ggressive nonsmoker S he was born in [place], [place]. She has been to Yann for 28 years and had one son Yann. 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 * Medications: T akingProAir HFA 108 (90 Base) MCG/ACT Aerosol Solution [...] PEN IF NECESSARY. Injection Estradiol 10 MCG Tablet 1 tablet Vaginal Two times a Week Medication List reviewed and reconciled with the patientTaking ProAir HFA 108 (90 Base) MCG/ACT Aerosol [...] WITH A NEW PEN IF NECESSARY. Injection Taking Estradiol 10 MCG Tablet 1 tablet Vaginal Two times a Week Medication List reviewed and reconciled with the patient * Allergies: E rythrocinSulfurProzacEffexorCymbaltaPaxilTrazodone HClAdhesivecolophonLividDotarem: anaphylaxisNo Known Food Allergyno[Allergies Verified] Objective: * Vitals: H t: 65, Wt: 162, BMI:26.96, BP: 129/80, HR: 62, Temp: 97.3, Ht-cm: 165.1, Wt-k.48. * Examination: G eneral Examination: GENERAL APPEARANCE: p leasant, well nourished, well developed, in no acute distress, calm and relaxed: overweight: woman. HEAD: a traumatic, normocephalic. EYES: e [...] sounds normal, no ascites, no organomegaly, no mass: overweight. RECTAL EXAM: n ot examined. MUSCULOSKELETAL: e xtremities unremarkable, no clubbing, cyanosis or edema, pain to elevation of left shoulder, no obvious arthritic changes in the knees or fingers. PERIPHERAL PULSES: n ormal. NEUROLOGIC: a lert and oriented, cranial nerves 2-12 grossly intact, deep tendon reflexes 2+ symmetrical, motor strength normal upper and lower extremities, sensory exam intact. PSYCH: a lert, oriented: cognitive function intact: speech clear: thought process logical, goal directed. Assessment: * Assessment: 1. A cute midline low back pain without sciatica - M54.50 (Primary) N otes :She gives a history that the pain only occurs at night and that it is completely relieved by emptying her bladder. This points to a possible bladder problem. Urinalysis done in the office today showed pyuria proteinuria and microscopic hematuria. A culture is pending as he has an ultrasound of the kidneys ureters and bladder. 2 . R ecurrent dislocation, right shoulder - M24.411 N otes :The area has been repaired and she is very happy that she is now pain- free. 3 . E nvironmental allergies - Z91.09 N otes :She is using an laja-gwi-xspspwb decongestant to treat her allergies with success. No additional medication seems needed. I recommended a nondrowsy antihistamine and Flonase as she needs it. 4 . O steoarthritis - M19.90 N otes :Of arthritic discomfort is mild and intermittent. It was not bothering her today. She will use acetaminophen and ibuprofen. 5 . A sthma - J45.909 N otes :She uses an inhaler occasionally but asthma has not been a significant problem in her life since her last visit. She has not been overly troubled in the pollen season. 6 . R estless leg syndrome - G25.81 N otes :She reports she has restless leg syndrome but also says she has a during the day. This complaint will be investigated more fully. Plan: * Treatment: Value Reference Range C olor Urine Yellow - * A ppearance Urine Clear - * P H 6.0 5.0-9.0 - * G lucose Urine UA Negative Negative - mg/dL * U rine Blood Negative Negative - * S pecific [employer] - Urine 1.025 1.005-1.025 - * U rine Protein Negative Neg-Trace - mg/dL * U rine Ketones Negative Negative - mg/dL * N itrite Urine Negative Negative - * L eukocyte Esterase Urine Negative Negative - ?Imaging: US RENAL BILATERAL ?Imaging: US URINARY BLADDER2.?Others? Continue Estradiol Tablet, 10 MCG, 1 tablet, Vaginal, Two times a Week;?Continue ProAir HFA Aerosol Solution, 108 (90 Base) MCG/ACT, 2 puffs prn, Inhalation, every 4 hrs;?Continue Advil Tablet, 200 MG, 1 tablet as needed, Orally, four times a day.? Referral To:Rheumatology [facility]??Rheumatology ?Reason:evaluateand treatment for bilateral hands and finger pain R/O rheumatoid arthritis * Labs: * L ab: URINE DIP STICK (Collection Date & Time - 07/11/2025) Value Reference Range S G 1.020 1.005 - 1.025 * p H 6.0 5.0 - 9.0 * L EU 15 + - Negative - * N IT Negative Negative - * P RO 15 Negative - Trace * G KATHE Negative Negative - * K ET 5 Negative - * U BG 0.2 0.1 - 1.8 * B IL 1 0.2 - 1.3 * B LD 5-10 Negative - * M enstrating No * [...] Other reason not done * Follow Up: a s scheduled in july (Reason: ov review US KUB) * Images: * Sign off status: Completed true * Provider: Priya Subramanian MD Date: 09/10/2024 Generated for Rad em/Julian/eTransmitting on: 09/11/2024 01:29 PM EST History and Physical Notes * HPI (History of Present Illness) Category Sub-Category Detail Notes COVID-19 Screening Questions Have you had any new onset fever, chills, cough, congestion, sore throat, shortness of breath, muscle aches?: No Examination Category Sub-Category Detail Notes General Examination GENERAL APPEARANCE: pleasant , well nourished, well developed, in no acute distress, calm and relaxed: overweight: woman HEAD: atraumatic, normocep halic EYES: eomi, perrla, anicte linda, conjugate EARS: normal NOSE: septum intact NECK/THYROID: no jugular venous di stention, no carotid bruit, thyroid normal HEART: no clicks, gallops, murmurs, or rubs, regular rhythm, S1, S2 normal, no s3, or vascular bruits LUNGS: clear to auscultatio n ABDOMEN: bowel sounds normal, no ascites, no organomegaly, no mass: overweight NEUROLOGIC: alert and oriented, cranial nerves 2-12 grossly intact, deep tendon reflexes 2+ symmetrical, motor strength normal upper and lower extremities, sensory exam intact SKIN: no suspicious lesion s, anicteric PERIPHERAL PULSES: normal BREASTS: Not examined MUSCULOSKELETAL: extremities unremark able, no clubbing, cyanosis or edema, pain to elevation of left shoulder, no obvious arthritic changes in the knees or fingers LYMPH NODES: no enlarged lymph no miguel angel,spleen normal RECTAL EXAM: not examined PSYCH: alert, oriented: cog nitive function intact: speech clear: thought process logical, goal directed ORAL CAVITY: normal, unremarkable Consultation Request Notes Referral Date Referring Provider Referred Provider Not es 07/11/2025 Vamshi Subramanian [facility], Rheumatology evaluate and treatment for bilateral hands and finger pain R/O rheumatoid arthritis
[2025-07-11 17:07] LABS: Appearance Urine Clear; Glucose Urine UA Negative (Negative); PH 6.0 (5.0-9.0); Specific Gravity - Urine 1.025 (1.005-1.025)
--- OUTSIDE RECORDS SUMMARY | 2025-07-12 13:29 | XMS_ITS | Data Portability ---
Author Organization STACY Jose R Pena [facility], [facility] Address [address] [place] [address] Care Team Providers Care Starcher And Tenter Range Feeder Name Role Phone NATTY SOLOMON Primary Care Provider Assessment Encounter Date Assessment Date Assessment LastModified by Organization Details LastModified Time 04/14/2024 04/14/2024 Nature of diagnosis was discussed with the patient today. At this time symptoms are most consistent with lateral meniscal pathology. However fairly asymptomatic in the office today. Discussed multiple treatment options and recommend continued use of anti-inflammator ies as well as a home stretching strengthening program. If no significant long-term improvement in symptoms reoccur discussed role of formal physical therapy cortisone injection or advanced imaging to further assess that lateral meniscus. All questions asked and answered will follow-up as outlined above. manuel Not available 04/14/2024 16:41:43 Plan of Treatment Reminders Order Date Submit Date Provider Last Modified By Organization Details Last Modified Time Details Appointments None recorded. Lab None recorded. Referral None recorded. Procedures None recorded. Surgeries None recorded. Imaging XR, shoulder, 2 or more view - room 216 left shoulder 2023 024 [facility], [address], [place], [address], 4 07:14:09 XR, knee, 4 or more view - rm 206 4V L knee pain 2023 024 man[facility], [address], [place], [address], 4 17:07:18 Medication Orders None recorded. Patient TargetsNo targets recorded. Patient InstructionsNo instructions recorded. Reason for Referral None Reported. Results Created Date Observation Date Name Description Value Unit Range Abnormal Flag Note LastModifiedBy Organization Detail LastModifiedTime 04/14/20 24 04/14/2024 XR, knee, 4 or more view [email or web address]:/ [email or web address] ?Encry pted=s hAaTro YD8dLq bEUv6g %2BXZw aYqtaq 0bqfl% 2Fg9IQ a4ajBk vP9nXo QUaueC m3YtLR FvZlgJ JJ8mAn HZtai3 5u7617 AC0Kra HuAUKX eUC8mr 84%3D INTERFACE [facility] [address], [place], [address], 04/14/2024 14:56:04 04/14/20 24 04/14/2024 XR, knee, 4 or more view [email or web address] ?Encry pted=s hAaTro YD8dLq bEUv6g %2BXZw aYqtaq 0bqfl% 2Fg9IQ a4ajBk vP9nXo QUaueC m3YtLR FvZlgJ JJ8Ogema HZtai3 8x9826 AC0Kra HuAUKX eUC8mr 84%3D INTERFACE [facility] [address], [place], [address], 04/14/2024 14:56:05 07/28/20 24 07/28/2024 XR, shoul kofi, 2 or more view [email or web address] ?Encry pted=s hAaTro YD8dLq bEUv6g %2BXZw aYqtaq 0bqfl% 2Fg9IQ a4ajBk vP9nXo QUaueC m3YtLR FvZlgJ JJ8mAn HZtai3 9p7233 AC0Kqa XWGVKG uKiQtr MwF INTERFACE [facility] [address], [place], [address], 07/28/2024 15:28:48 07/28/20 24 07/28/2024 XR, shoul kofi, 2 or more view [email or web address] ?Encry pted=s hAaTro YD8dLq bEUv6g %2BXZw aYqtaq 0bqfl% 2Fg9IQ a4ajBk vP9nXo QUaueC m3YtLR FvZlgJ JJ8mAn HZtai3 7q1490 AC0Kqa XWGVKG uKiQtr MwF INTERFACE [facility] Office [address] [facility] [address], [place], [address], 07/28/2024 15:28:50 Result Notes Documentation Provider Name and Address Organization Details Recorded Time Xr, Knee, 4 Or More View : [email or web address] Encrypted=tnGrQfnLR9dIorJ Uv6g%8KENolCrtpu6makw%2Fg 2RIv1cgMshW9cZdUVdrnWn6Up ZYQqOtiFIN8cBgNFprv20u738 1XG5YycBvOGCWqCB1bj39%3D Not Available [facility] 04/14/2024 14:5 6:04 Xr, Knee, 4 Or More View : [email or web address]? Encrypted=wdEgLjkAO7qEqtP Uv6g%6JEYurWxjol9ghnc%2Fg 8RMb6aaKzyN6cXgOQfdtLi8Dz MZHnWzzRNT8rToYNsqy15b073 8NU4MwpKtCRPUwIF4ky69%3D Not Available [facility] 04/14/2024 14:5 6:06 Xr, Shoulder, 2 Or More View : [email or web address]? Encrypted=hgHpFphMO9hXumW Uv6g%6VIRkuAflqg2gdaz%2Fg 3QZl8tbHwnI8kAeTLgtaRw2Fl HJAhHthQXK6iAdTXadi28o055 8QZ8EdgIZTNQHbNkHqiKoC Not Available [facility] 07/28/2024 15:28: 49 Xr, Shoulder, 2 Or More View : [email or web address] Encrypted=reCrSylER4qBehN Uv6g%0QJJqoDuvxj7qnnb%2Fg 6XBt2xtVjjF3uMpVPgpbHf3Ab OJJkOyaNSQ9hMhVIfer46k487 2VX2EbcWGZCHGhKvSexVvX Not Available [facility] 07/28/2024 15:28: 51 Procedures Surgical History Date Name Laterality Status Provider Name and Address Organization Details Recorded Time 5 Sports Shoulder completed Farrukh Marks PA-C [address] [facility] [place], [place], [address], [facility] 2025 13:15:21 4 Sports Shoulder completed Gabriel Cruz PA-C [address], [place], [address], [facility] 08/18/2024 06:53:55 Imaging Results None recorded. Procedure Notes None recorded. Medical Equipment None Reported. Allergies Allergen ID Allergen Name Allergen Category Reaction Reaction Severity Criticality Documentation Date Start Date Code Code System Note Provider Name and Address Organization Details Recorded Time 659424 Iodinated contrast media (substanc e) medicatio n Not available Not available Not available 04/14/2024 47104 2004 SNOMED AMEE bell [facility] 4 14:44:12 603264 Saline medicatio n Not available Not available Not available 04/14/2024 AMEE bell [facility] 4 14:44:22 236949 Plaquenil medicatio n Not available Not available Not available 04/14/202437611 2 RxNorm AMEE bell [place] [facility] 4 14:44:29 060993 Prozac medicatio n Not available Not available Not available 04/14/2024 75510 RxNorm AMEE LARIVIERE null, [facility], [facility] 4 14:44:39 063148 Effexor medicatio n Not available Not available Not available 04/14/2024 05249 2 RxNorm AMEE LARIVIERE null, [facility], [facility] 4 14:45:02 195681 Cymbalta medicatio n Not available Not available Not available 04/14/2024 47383 4 RxNorm AMEE LARIVIERE null, [facility], [facility] 4 14:45:10 348182 Paxil medicatio n Not available Not available Not available 04/14/2024 60591 8 RxNorm AMEE LARIVIERE null, [facility], [facility] 4 14:45:21 489807 Ambien medicatio n Not available Not available Not available 04/14/2024 39151 5 RxNorm AMEE LARIVIERE null, [facility], [facility] 4 14:45:25 206744 trazodone medicatio n Not available Not available Not available 04/14/2024 55199 RxNorm AMEE LARIVIERE null, [facility], [facility] 4 14:45:52 867043 Substance with sulfonami de structure and antibacte rial mechanism of action (substanc e) medicatio n Not available Not available Not available 04/14/2024 80137 8003 SNOMED AMEE LARIVIERE null, [facility], [facility] 4 14:45:58 969253 citalopra m medicatio n Not available Not available Not available 04/14/2024 2556 RxNorm AMEE LARIVIERE null, [facility], [facility] 4 14:46:02 658902 erythromy severino medicatio n Not available Not available Not available 04/14/2024 4053 RxNorm AMEE LARIVIERE null, [facility] 4 14:46:23 457084 Bactrim medicatio n Not available Not available Not available 04/14/2024 99548 9 RxNorm AMEE ROSARIO [facility], [facility], [facility] 4 14:46:35 472421 gadoterat e meglumine medicatio n Not available Not available Not available 2025 62151 51 RxNorm Bridgette Ahn [facility] 5 10:51:18 Medications Name Sig Start Date Stop Date Status Note LastModified by Organization Details LastModified Time amoxicillin 500 mg capsule TAKE 1 CAPSULE BY MOUTH THREE TIMES DAILY DIRECTED. START TAKING 2 DAYS BEFORE APPOINTMENT active Not Available Not Available Not Available valacyclovir 500 mg tablet TAKE 2 TABLETS BY MOUTH AT ONSET OF SYMPTOMS AND 48 HOURS LATER active Not Available Not Available Not Available epinephrine 0.3 mg/0.3 mL injection, auto-injecto r INJECT0.3 MG INTRAMUSCUL VANNESA FOR ALLERGIC REACTIONS, CALL 911 SEEK MEDICAL ATTENTION. MAY REPEAT WITH A NEW PEN IF NECESSARY. active Not Available Not Available N ot Available ibuprofen 600 mg tablet TAKE 1 TABLET BY MOUTH THREE TIMES DAILY NEEDED FOR PAIN active Not Available Not Available No t Available albuterol sulfate HFA 90 mcg/actuatio n aerosol inhaler INHALE 2 PUFFS BY MOUTH EVERY 4 HOURS NEEDED active Not Available Not Available No t Available doxycycline hyclate 100 mg tablet TAKE 1 TABLET BY MOUTH TWICE DAILY FOR 14 DAYS active Not Available Not Available No t Available chlorhexidin e gluconate 0.12 % mouthwash RINSE WITH 15 ML BY MOUTH TWICE DAILY THEN SPIT. DO NOT SWALLOW active Not Available Not Available Not Available estradiol 10 mcg vaginal tablet INSERT 1 TABLET VAGINALLY TWO TIMES PER WEEK active Not Available Not Available No t Available albuterol 90 mcg-budesoni de 80 mcg/actuatio n HFA aerosol inhaler Inhale by inhalation route. active Not Available Not Available No t Available Vitals Date Recorded Body height Body mass index (BMI) Body weight Provider Name and Address Organization Details Last Updated DateTime 2025 162.56 cm 26.3 kg/m2 12076.63 g Bridgette Ahn [facility] 2025 10:52:17 Date Recorded Body height Body mass index (BMI) Body weight Provider Name and Address Organization Details Last Updated DateTime 07/28/2024 162.56 cm 26.3 kg/m2 03793.63 g Amee Cedeno [place] [facility] 07/28/2024 15:18:02 Social History None recorded. Functional Status None recorded. Mental Status None recorded. Family History Nothing Reported. Medical History Condition Response Allergies/Hayfever Y Asthma Y Gynecological HistoryNo gynecological history recorded. Obstetrics History GPAL:G 0 P 0 0 0 0 Past Encounters Encounter ID Performer Location Encounter Start Date Encounter Closed Date Diagnosis/Indication Diagnosis SNOMED-CT Code Diagnosis ICD10 Code Diagnosis IMO Codes Diagnosis Note [id number] ELOY Blackman [address] [place] [address] 04/14/2024 14:32:59 05/11/2024 14:31:18 Pain of left knee joint 0505422118 11404 M25.540 [id number] Gabriel Cruz PA-C [facility] [address] [place] [address] 07/28/2024 15:05:40 08/28/2024 11:40:04 Pain of left shoulder region 9966486197 M25.512 95165299 Calcific t endinitis of left shoulder 8364668445 49511 M75.32 [id number] Farrukh Marks PA-C [facility] [address] [place] [place] [address] 2025 10:33:13 02/09/2025 11:16:55 Calcific tendinitis of left shoulder [id number] 21170 M75.32 [id number] Health Concerns Section Related Observation LastModified by Organization Detai ls LastModified Time None Recorded Concern Status LastModified by Organization Details LastModified Time None Recorded Advance Directives Directive None Recorded Payers Insurance Date Sequence Insurance Name Policy Number Policy Garcia Covered Member ID Garcia Member ID Guarantor Name 02/09/[address] [facility] [place] [id number] 01 Chela Puri [id number] Chela Puri 01/30/[address] [facility] [id number] Chela Puri [id number] Chela Puri Notes Date Note Type Note Provider Name and Address Organization Details Recorded Time 04/14/2024 text/html I am seeing the patient today under the supervision of Dr. Foley who was available but who did not see the patient. Patient comes in for evaluation of left knee pain. Patient states that the pain has been going on for about 6 months. Patient does not recall a specific injury to account for this. Patient states that she will get episodic pain discomfort in the lateral aspect of that knee. Pain is on the lateral aspect with knee flexion activities to include hiking as well as going up and down stairs get from a seated position. Patient able to other nonincline activities without difficulty. Feels like the knee will catch and lock in that area will have sharp shooting pains otherwise there are times and episodes where she is fairly asymptomatic. Has been doing anti-inflammatories. No previous injury or surgery to that left knee. Farrukh Marks PA-C [address] [facility] [address], [place], [address], [facility] 04/14/2024 16:42:01 07/28/2024 text/html I am seeing this patient under the supervision of Dr. Davis who was available but did not see the patient.HPI: Chela is a 59-year-old female who presents with new onset left shoulder pain. She has had previous right shoulder arthroscopy by Dr. Davis. She reports onset about a 1 month ago without trauma or injury. Pain at nighttime and with over-shoulder height reaching and lifting activities. She denies neck pain or shoulder instabilityPFMSH and ROS has been reviewed, updated, and signed by me and is located in the patient s chart.PHYSICAL EXAMINATION: The patient is well appearing and in no apparent distress. Alert and oriented x 3. Gait is symmetric.Left shoulder exam: Elevates to 170 degrees, externally rotates 60, internal rotates to L1. Moderate bursal irritability, with positive provocative impingment tests, there is some AC joint irritability. Good strength of the cuff with external rotation. Mild pain with resistive horizontal elevation today. No instabitly noted. Cervical ROM normal without radicular symptomsRight uninvolved normal shoulder ROM full, 5/5 strength including rotator cuff and periscapular musculature. Good muscle bulk and strength without atrophy. No evidence of instability of the shoulder. Negative impingement signs. Negative AC joint tenderness.Periphera l, vascular, lymphatic examination, skin, neurological, coordination, reflexes, sensation are within normal limits. No erythema, no redness, no warmth.X-RAY REPORT: X-rays were ordered, obtained and reviewed today at [facility]. Four views of the left shoulder demonstrate type II acromion, AC joint very mild arthritis without reactive cyst changes on greater tuberosity, glenohumeral joint is well preserved. There is a small deposit of calcium in the supraspinatus insertion distribution.IMPRESS ION: Calcific tendinitis and Shoulder Mechanical Impingment of the left shoulderPLAN: Discussed nature of symptoms. Recommended rest, ice, activity modification. Recommended and performed left shoulder subacromial space injection. After meticulous sterile preparation, 4 cc of 1/4% Marcaine, 40mgs of Kenalog was injected without incident. Postinjection precautions reviewed. Recommendation is also for possible referal to physical therapy and reevaluation in our office as symptoms dictate going forward. Gabriel Cruz PA-C [address] [facility] [address], [place], [address], [facility] 08/18/2024 06:54:54 2025 text/html I am seeing the patient today under the supervision of who was available but who did not see the patient. HPI: Patient comes in for recheck of left shoulder pain. Was last seen for underlying calcific tendinitis and received a cortisone injection with good relief for the last 6 months. Pain is returned over the last couple weeks over the lateral brachium. Difficulty with overhead motions and reaching behind her back. Has had no new injuries no other modalities. Past family, medical, social history and review of systems has been reviewed, updated and is located in the patient s chart. Examination: The patient is well appearing and in no apparent distress. Alert and oriented x3. Gait is symmetric. Vital signs per intake sheet . Evaluation of the left shoulder has no effusion erythema or warmth. Good muscle bulk when compared bilaterally. Has supple range of motion of that shoulder. 5/5 strength rotator cuff and biceps tendon. Positive impingement arc negative cross body. Impression: calcific tendinitis left shoulder Plan: Nature diagnosis discussed with patient today. Both surgical and nonsurgical options are reviewed. At this time patient wishes to go forward with a repeat cortisone injection. Patient tolerated the procedure well. Postinjection precautions were reviewed. Follow-up as symptoms dictate. [facility] speech recognition production tool engineer software was used to create portions of this document. An attempt at proofreading has been made to minimize errors. Please call for corrections. Farrukh Marks PA-C [address] [place] [address] [address], [place], [address], [facility] 2025 13:15:41 OBGyn Episode No OBEpisode recorded.
--- OUTSIDE RECORDS SUMMARY | 2025-07-12 13:30 | XMS_ITS | Clinical Summary ---
Author Organization Former[facility] Address [address] [place] [address] Phone Care Team Providers Care Python Developer Name Role Phone Vamshi Subramanian MD Primary Care Provider [phone] Allergies Active Allergy Reactions Criticality Noted Date [...] Office Visit [facility] at [address] [address] Coco Puri, JEANINE Pain of left mastoid [...] 2025 , 06/04/2023, 06/08/2022, Additional history exists COVID-19 VACCINE (2024- season) 2025 05/14/2024, 06/04/2023, 05/10/2022, Additional history exists Adult Td,Tdap Booster 01/25/2034 01/26/2024 RSV VACCINE Completed 04/20/2024 ZOSTER VACCINES Completed 09/30/2024, 04/20/2024 HEPATITIS A [...] Medical Devices Not on file Insurance [place] [address] [place] [address] [address] HMO [facility] [address] [place] [address] HMO Care Teams Python Developer Relationship Specialty Start Date End Date Vamshi Subramanian MD [address] [place] [address] [place] [address] PCP - General Medical Oncology 05/14/25 Additional Source Comments The information contained in this document represents components of the legal health record. It is not the complete legal health record.[facility]
--- OUTSIDE RECORDS SUMMARY | 2025-07-12 13:30 | XMS_ITS | Clinical Summary ---
Author Organization [facility] Address [address] [place] [address] Care Team Providers Care Order Checker Name Role Phone Unavailable Primary Care Provider [...] Group Subscriber ID Effective Dates Phone Address [facility] [id number] 2020-Present 1 [facility] [address] [place] [address] HMO
--- OUTSIDE RECORDS SUMMARY | 2025-07-12 13:30 | XMS_ITS | Patient Health Record ---
Author Organization Vamshi Subramanian III, MD Address [address] [place] [address] Care Team Providers Care Machine Worker Name Role Phone Dr. Vamshi Subramanian III [...] Magnesium Reviewed date:03/25/2025 07:15:05 PM Interpretation: Performing Lab:[facility], [address] [place] [phone] Notes/Report: Magnesium 2.3 1.6-2.6 mg/dL Free T4 (Free Thyroxine) Reviewed date:03/25/2025 07:15:05 PM Interpretation: Performing Lab:[facility], [address] [place] [phone] Notes/Report: Free T4 (Free Thyroxine) 0.98 0.71-1.85 ng/dL Urinalysis (Not yet reviewed by provider) Interpretation: Performing Lab:[facility], [address] [place] [phone] Notes/Report: Color Urine Yellow Appearance Urine Clear PH 6.0 5.0-9.0 Glucose Urine UA Negative Negative mg/dL Urine Blood Negative Negative Specific Emmalena - Urine 1.025 1.005-1.025 Urine Protein Negative [...] 1.3 BLD 5-10 Negative - Menstrating No MM tomosynthesis screening B I Reviewed date:09/25/2024 09:05:37 AM Interpretation: Performing Lab: Notes/Report: [facility] [address] [place] [address] Mammography Report Signed Patient: Chela Puri MR#: [id number] 47 : 1965 Acct:[id number] Age/Sex: 59 / F ADM Date: 09/12/24 Loc: HO.MAMMO Attending Dr: Vamshi Subramanian MD Ordering Physician: Vamshi Subramanian MD Results: 1Negativ e Date of Service: 09/12/24 Follow Up: 1 Year From Orig ina Mammogram Procedure(s): MM tomosynthesis screening BI Accession Number(s): [id number] cc: Vamshi Subramanian MD EXAMINATION: MM SCREENING [...] 09/21/24 0941 DD/ 1620 TD/TT: 09/12/24 1633 Lawn Care Technician: [facility] [address] [place] [address] Mammography Report Signed Patient: Mallory Puri MR#: [id number] 47 : 1965 Acct:[id number] Age/Sex: 59 / F ADM Date: 09/12/24 Loc: HO.MAMMConstanza Attending Dr: Vamshi Subramanian MD Ordering Physician: Vamshi Subramanian MD Results: 1Negativ e Date of Service: Follow Up: 1 Year From Orig ina Mammogram Procedure(s): MM tomosynthesis screening BI Accession Number(s): [id number] cc: Vamshi Subramanian MD EXAMINATION: MM SCREENING DIGITAL BREAST TOMOSYNTHESIS, BILATERAL CLINICAL INFORMATION: Screening. Asymptomatic. COMPARISON: Mammography: Compari son is made with available priors TECHNIQUE: Digital breast mammography with tomosynthesis is performed in both the craniocaudal and mediolateral oblique views along with computer-aided detection (CAD). FINDINGS: There are scattered areas of fibroglandular density (ACR BI-RADS breast composition Category b). There are no signifi cant masses, abnormal calcifications, or other abnormalities. M M/MM tomosynthesis screening BI IMPRESSION: No mammographic evid ence of malignancy. ASSESSMENT: BI-RADS BI-RADS 1 - Negative RECOMMENDATION: Routine annual mammography screening. 1 year F/U This examination miguelina uld not preclude the clinical evaluation of a suspicious palpable abnormality. This patient's information was entered into a reminder system with a target due date for their next mammogram. Electronically brittani d by: Ani Rodriguez DO 09/21/2024 09:41 AM [facility] Dictated By: Ani Rodriguez DO Signed By: <Electronically signed by Ani Rodriguez DO in OV> 09/21/24 0941 DD/ 1620 TD/TT: 09/12/24 1633 Lawn Care Technician: MAMMOGRAM DIGITAL BILATERAL SCREEN Reviewed date:2025 03:57:19 PM Interpretation:undefined Performing Lab: Notes/Report: undefined Complete Blood Count Auto Di ff Reviewed date:01/22/2025 08:00:09 PM Interpretation: Performing Lab:[facility], [address] [place] [phone] Notes/Report: White Blood Count 5.2 4.8-10.8 X10*3/uL [...] NRBC Abs Auto 0.000 0.0-0.012 X10*3/uL Comprehensive [place]. Panel Fa st Reviewed date:01/22/2025 08:00:09 PM Interpretation: Performing Lab:[facility], [address] [place] [phone] Notes/Report: Sodium 142 135-145 mmol/L Potassium 4.3 [...] Panel Reviewed date:01/22/2025 08:00:09 PM Interpretation: Performing Lab:[facility], [address] [place] [phone] Notes/Report: Triglycerides 62 <150 mg/dL Desirable Triglyceride: [...] ff Reviewed date:03/25/2025 07:15:05 PM Interpretation: Performing Lab:[facility], [address] [place] [phone] Notes/Report: White Blood Count 7.7 4.8-10.8 X10*3/uL [...] Panel Reviewed date:03/25/2025 07:15:05 PM Interpretation: Performing Lab:[facility], [address] [place] [phone] Notes/Report: Sodium 141 135-145 mmol/L Potassium 4.4 [...] Hormone Reviewed date:03/25/2025 07:15:05 PM Interpretation: Performing Lab:[facility], [address] [place] [phone] Notes/Report: Thyroid Stimulating Hormone 1.43 0.32-4.0 uIU/mL TSH 3rd Generation ([facility]) Complete Blood Count Auto Di ff Reviewed date:05/15/2025 05:40:12 AM Interpretation: Performing Lab:[address] [address] Notes/Report: White Blood Count 6.7 4.8-10.8 X10*3/uL [...] 0.000 0.0-0.012 X10*3/uL Comprehensive Met. Panel Reviewed date:05/15/2025 05:40:12 AM Interpretation: Performing Lab:[facility], [address] [place] [phone] Notes/Report: Sodium 141 135-145 mmol/L Potassium 3.9 [...] 3.5-5.0 g/dL Alkaline Phosphatase 103 39-117 U/L CT facial bones w con Reviewed date:05/15/2025 05:40:12 AM Interpretation: Performing Lab: Notes/Report: [address] [address] [address] Scan Report Signed Patient: Chela Puri MR#: [id number] 47 : 1965 Acct:[id number] Age/Sex: 60 / F ADM Date: 05/14/25 Loc: .ED Attending Dr: Ordering Physician: Leena Bhagat DO Date of Service: 05/14/25 Procedure(s): CT facial bones w IV con Accession Number(s): [id number] cc: Vamshi Subramanian MD; Leena Bhagat DO Report Number: [id number]: Total DLP = 0.00 mGy-cm Reason for Exam: Left mastoiditis evaluation CLINICAL HISTORY: Left mastoiditis evaluation --- Additional Notes or Special Instructions: Allergies to MRI contrast in past. Not CT contrast CT maxillofacial with contrast Comparison: None provided Findings: Bilateral mastoid air cells are well aerated without bony destructive changes or sequela of reported mastoiditis. Arachnoid granulations noted , including transverse sinuses. No dural venous sinus thrombosis of either sigmoid sinus or either imaged jugular vein. Right transverse sinus right sigmoid sinus are dominant. No acute appearing or suspicious air-fluid levels of the paranasal sinuses, with mucosal thickening noted. Nasal septum deviates to the left. No acute intraconal stranding within either orbit. No retrobulbar mass. Imaged brain parenchyma is unremarkable for technique and field of view. Metal artifacts noted including from multiple teeth. Mild right and gfeglayl-km-ftlawy left osteoarthritis of the temporomandibular joints, with anatomic alignment maintained. Degenerative changes noted in the imaged cervical spine with reversal of the imaged cervical lordosis. Facet arthropathy including of the left C3-C4. IMPRESSION: 1. Bilateral mastoid air cells are well aerated, without sequela of reported mastoiditis. 2. Osteoarthritis of the temporomandibular joints, left worse than right. 3. Imaged paranasal sinuses are well aerated. This document has been electronically signed by: Jovanny Sotelo MD on 05/14/2025 19:18:47 Dictated By: Jovanny Sotelo MD Signed By: <Electronically signed by Jovanny Sotelo MD in OV> 05/14/251918 DD/ 17 TD/TT: 05/14/251917 Lawn Care Technician: [place] [address] CT Scan Report Signed Patient: Mallory Puri MR#: [id number] 47 : 1965 Acct:[id number] Age/Sex: 60 / F ADM Date: 05/14/25 Loc: HO.ED Attending Dr: Ordering Physician: Leena Bhagat DO Date of Service: 05/14/25 Procedure(s): CT fac ial bones w IV con Accession Number(s): [id number] cc: Vamshi Subramanian MD; Leena Bhagat DO Report Number: [id number]: Total DLP = 0.00 mGy-cm Reason for Exam: Lef t mastoiditis evaluation CLINICAL HISTORY: Le ft mastoiditis evaluation --- Additional Notes or Special Instructions: Allergies to MRI con trast in past. Not CT contrast CT maxillofacial wit h contrast Comparison: None provided Findings: Bilateral mastoid ai r cells are well aerated without bony destructive changes or sequela o f reported mastoiditis. Arachnoid granulations noted , including transverse sinuses. No dural venous sinus thrombosis of either sigmoid sinus or eit her imaged jugular vein. Right transverse sinus right sigmoid sinus are dominant. No acute appearing o r suspicious air-fluid levels of the paranasal sinuses, with mucosa l thickening noted. Nasal septum deviates to the left. No acute intraconal stranding within either orbit. No retrobulbar mass. Imaged brain parench yma is unremarkable for technique and field of view. Metal artifacts note d including from multiple teeth. Mild right and hxtelgmx-sh-qxtjab l eft osteoarthritis of the temporomandibular joints, with anatomic alignm ent maintained. Degenerative changes noted in the imaged cervical spin e with reversal of the imaged cervical lordosis. Facet arthropathy includin g of the left C3-C4. IMPRESSION: 1. Bilateral mastoid air cells are well aerated, without sequela of reported mastoiditis. 2. Osteoarthritis of the temporomandibular joints, left worse than right. 3. Imaged paranasal sinuses are well aerated. This document has be en electronically signed by: Jovanny Sotelo MD on 05/14/2025 19:18:47 Dictated By: Tacos Sotelo MD Signed By: <Electronically signed by Jovanny Sotelo MD in OV> 05/14/251918 DD/ 17 TD/TT: 05/14/251917 Lawn Care Technician: Reason For Referral Reason evaluate and treatme [...] Provider Speciality Internal M edicine Referred Provider [facility] er, Rheumatology Referred Provider Specialty Rheumatology General Notes Camila Belle CMA 07/12 11:36:23 AM >ref/demo/progress note faxed to [facility] Referral Priority Routine Medications Medication SIG (Take, Route, Frequency, Duration) [...] A NEW PEN IF NECESSARY. Injection Active Immunizations Vaccine Route Administration Date Status [...] Problem Status W/U Status Risk Notes Problem 141341055 Asthma (J45.909) Active confirmed She uses an inhaler occasionally but asthma has not been a significant problem in her life since her last visit. She has not been overly troubled in the pollen season. Problem Overweight (567886439) Overweight (E66.3) Active confirmed He is slightly overweight with a BMI slightly over 25. We discussed diet and nutrition and made a plan to lose weight at a rate of one half of a pound per week. Problem 11847306 Other chronic pain (G89.29) Active confirmed Problem 555180505315605 Recurrent dislocation, right shoulder (M24.411) Active confirmed The area has been repaired and she is very happy that she is now pain-free. Problem 568345301 Environmental allergies (Z91.09) Active confirmed She is using an fama-oko-mlagufw decongestant to treat her allergies with success. No additional medication seems needed. I recommended a nondrowsy antihistamine and Flonase as she needs it. Problem 524904218 Osteoarthritis (M19.90) Active confirmed Of arthritic discomfort is mild and intermittent. It was not bothering her today. She will use acetaminophen and ibuprofen. Problem 386220707 Atypical chest pain (R07.89) Active confirmed She reports th at she has had no further episodes of sharp stabbing chest pain. Problem Restless legs syndrome (61949595) Restless leg syndrome (G25.81) Active confirmed She reports she has restless leg syndrome but also says she has a during the day. This complaint will be investigated more fully. Problem 282404085 Acute midline low back pain without sciatica [...] ultrasound of the kidneys ureters and bladder. Problem Cramp in lower leg associated with rest (155489315) Nocturnal leg cramps (G47.62) Active confirmed These are present in both legs and occur nightly. Comprehensive blood work has been ordered. I recommended she stop running but continue her other muscle strengthening exercises. Blood work iis unremarkable. She will go to physical therapy. We discussed stretches and she will take nnaproxen prior to going to sleep. Problem 098116010814605 Epiretinal membrane (ERM) of left eye (H35.372) Active confirmed She will follow-up with the e commerce solution architect as scheduled. She will notify the e commerce solution architect at once if her vision changes. Vital Signs Heart Rate 62 /min 07/11/2025 Temperature 97.3 degrees Fahrenheit 07/11/2025 Blood pressure diastolic 80 mm Hg 07/11/2025 Height 65 in 07/11/2025 Blood pressure systolic 129 mm Hg 07/11/2025 Weight 162 lbs 07/11/2025 BMI 26.96 kg/m2 07/11/2025 Encounters Encounter Location Date Provider Diagnosis Vamshi Subramanian III, MD [address] [place] [address] [place] [phone] 2025 Vamshi Subramanian Asthma J45.909 ; Recurrent dislocation, right shoulder M24.411 ; Atypical chest pain R07.89 ; Environmental allergies Z91.09 and Overweight E66.3 Vamshi Subramanian III, MD [address] [place] [address] [place] [phone] 03/15/2025 Vamshi Subramanian Asthma J45.909 ; Nocturnal leg cramps G47.62 ; Restless leg syndrome G25.81 ; Overweight E66.3 ; Environmental allergies Z91.09 and Recurrent dislocation, right shoulder M24.411 Vamshi Subramanian III, MD [address] [place] [address] [place] [phone] 03/17/2025 Vamshi Subramanian Asthma J45.909 ; Nocturnal leg cramps G47.62 ; Environmental allergies Z91.09 ; Recurrent dislocation, right shoulder M24.411 ; Restless leg syndrome G25.81 and Overweight E66.3 Vamshi Subramanian III, MD [address] [place] [address] [place] [phone] 07/11/2025 Vamshi Subramanian Recurrent dislocatio n, right shoulder M24.411 ; Acute midline low back pain without sciatica M54.50 ; Environmental allergies Z91.09 ; Osteoarthritis M19.90 ; Asthma J45.909 and Restless leg syndrome G25.81 Vamshi Subramanian III, MD [address] [place] [address] [place] [phone] 03/20/2025 Vamshi Subramanian III, MD [address] [place] [address] [place] [phone] 03/24/2025 Vamshi Subramanian III, MD [address] [place] [address] [place] [phone] 05/31/2025 Vamshi Subramanian Assessments Encounter Date Diagnosis (ICD [...] take nnaproxen prior to going to sleep. 07/11/2025 Recurrent dislocation, right shoulder (ICD-10 - [...] ultrasound of the kidneys ureters and bladder. 2025 Atypical chest pain (ICD-10 - R07.89) She reports that she has had no further episodes of sharp stabbing chest pain. 03/15/2025 Restless leg syndrom e (ICD-10 - G25.81) She reports she has restless leg syndrome but also says she has a during the day. This complaint will be investigated more fully. 03/17/2025 Environmental allergies (ICD-10 - Z91.09) She is using an bzyw-oto-izkgmmr decongestant to treat her allergies with success. No additional medication seems needed. I recommended a nondrowsy antihistamine and Flonase as she needs it. 07/11/2025 Environmental allergies (ICD-10 - Z91.09) She is using an tbia-bcc-iibyhqh decongestant to treat her allergies with success. No additional medication seems needed. I recommended a nondrowsy antihistamine and Flonase as she needs it. 2025 Environmental allergies (ICD-10 - Z91.09) She is using an nywy-gij-meojfvq decongestant to treat her allergies with success. [...] happy that she is now pain-free. 07/11/2025 Osteoarthritis (ICD-10 - M19.90) Of arthritic discomfort is mild and intermittent. It was not bothering her today. She will use acetaminophen and ibuprofen. 2025 Overweight (ICD-10 - E66.3) She is very slightly overweight. We discussed diet and nutrition. She will try to lose weight at a rate of one half of a pound per week. 03/15/2025 Environmental allergies (ICD-10 - Z91.09) She is using an jwjn-gib-wumhugc decongestant to treat her allergies with success. No additional medication seems needed. I recommended a nondrowsy antihistamine and Flonase as she needs it. 03/17/2025 Restless leg syndrom e (ICD-10 - G25.81) She reports she has restless leg syndrome but also says she has a during the day. This complaint will be investigated more fully. 07/11/2025 Asthma (ICD-10 - J45.909) She uses an inhaler occasionally but asthma has not been a significant problem in her life since her last visit. She has not been overly troubled in the pollen season. 03/15/2025 Recurrent dislocation, right shoulder (ICD-10 - M24.411) The area has been repaired and she is very happy that she is now pain-free. 03/17/2025 Overweight (ICD-10 - E66.3) He is slightly overweight with a BMI slightly over 25. We discussed diet and nutrition and made a plan to lose weight at a rate of one half of a pound per week. 07/11/2025 Restless leg syndrom e (ICD-10 - G25.81) She reports she has restless leg syndrome but also says she has a during the day. This complaint will be investigated more fully. Plan Of Treatment Pending Test Test Name Order Date URINE CULTURE 07/11/2025 SCREENING COLONOSCOPY 06/18/2023 US RENAL BILATERAL 07/11/2025 US URINARY BLADDER 07/11/2025 Urinalysis 07/11/2025 Next Appt Details Provider Name:Vamshi Balderrama Marilynn , 08/02/2025 04:15:00 PM, [address] [place] [address] [address], [place], [phone], Provider Name:Vamshi Balderrama Marilynn , 02/02/2026 04:00:00 PM, [address] [place] [address] [address], [place], [phone], Insurance Providers Payer Name Payer Address Payer Phone Subscriber Number Group Number Insured Name Patient Relationship to Insured Coverage Start Date Coverage End Date [facility] [address] [facility] [address] [facility] [place] [phone] [id number] Chela Puri Self - patient is the insured Medical (General) History Medical History History ICD Code last menstrual period 12/2015 asthma allergies Surgical History Surgery Date(Month/Year) Tooth removed 05/2024
== END 2025-07-11 16:51 | disposition home or self-care (01) ==
LOC: HO.10HDLNP 16:50
PROVIDERS: Visit Provider Internal Medicine Medical Oncology
DX: R82.998 Other abnormal findings in urine (principal); J45.909 Unspecified asthma, uncomplicated; M54.9 Dorsalgia, unspecified; G89.29 Other chronic pain; R80.9 Proteinuria, unspecified; R31.9 Hematuria, unspecified
CPT/HCPCS: 81003; 87086